=== PATIENT | female | born 1945 | race Caucasian/White ===

== ENCOUNTER 2018-06-06 08:52 | Day surgery (SDC) | payer MEDICARE, MEDICAID ==
[~2018-06-06 08:52] MED LIST: Sodium Chloride 0.9% 10 ML Syringe FLUSH PRN
[2018-06-06] MEDS ORDERED: Propofol 200 MG/20 ML SDV IV ONE (11:20)
[2018-06-06 13:25] VITALS: BP 121/72
--- NOTE | 2018-06-07 10:35 | OR ---
DATE OF OPERATION: 06/06/2018 SURGEON: Arnold Patten MD PREOPERATIVE DIAGNOSIS: Cataract, right eye. POSTOPERATIVE DIAGNOSIS: Cataract, right eye. OPERATION PERFORMED: Phacoemulsification of cataract right eye with placement of an Campbell model ZCB00, 15.0 diopter, foldable, posterior chamber intraocular lens. MECHANICAL ARTIST: None. DESCRIPTION OF PROCEDURE: Peribulbar anesthetic was performed using a mixture of 2% lidocaine with Wydase. The patient was prepped and draped in the usual fashion. A 3 mm fornix based conjunctival flap was performed at the 12 o'clock position. Hemostasis was obtained using diathermy, and a 2.8 mm grooved near clear corneal incision was then made. A stab incision was made into the anterior chamber at the 2:30 o'clock position and a second stab wound incision was made underlying the grooved near clear corneal incision. Viscoat was instilled into the anterior chamber, and a continuous tear capsulotomy was performed. Hydrodissection was accomplished with balanced salt solution, and the nucleus was removed in a divide and conquer fashion. The remaining cortical material was removed with the irrigation and aspiration unit. Viscoat was instilled into the anterior chamber, and an SILVINA, model Z9002, 15.0 diopter, foldable, posterior chamber intraocular lens was placed into the capsular bag, the haptics being positioned at the 3 and 9 o'clock positions. The residual Viscoat was removed from the anterior chamber and the anterior chamber reformed with balanced salt solution. The wound was checked and noted to be watertight. The conjunctiva was secured in its original position with diathermy. Alphagan and Maxitrol Ointment were then placed into the patient's eye. The patient tolerated the procedure well and it was without complication. Elapsed phacoemulsification time was 15.4 seconds. Because of minor patient discomfort, 0.3 mL of a mixture of 1% lidocaine, phenylephrine, and balanced salt solution was instilled into the anterior chamber. This resolved the discomfort. Postoperative instructions as related to activities as well as medications were reviewed with the patient. The patient was instructed to return to see me on the day following surgery for the first postoperative check. She was also instructed to contact me prior to that time if she were to have any problems. /[id number] DEG/MODL CC: JUDY HULL PA-C MTDD
== END 2018-06-06 13:45 | disposition home or self-care (01) ==
LOC: FB.SDS 08:52
PROVIDERS: ATTEND Ophthalmology
DX: H25.813 Combined forms of age-related cataract, bilateral (principal); I10 Essential (primary) hypertension; I26.99 Other pulmonary embolism without acute cor pulmonale; K57.30 Diverticulosis of large intestine without perforation or abscess without bleeding; K21.9 Gastro-esophageal reflux disease without esophagitis; E78.5 Hyperlipidemia, unspecified; D50.9 Iron deficiency anemia, unspecified; M19.90 Unspecified osteoarthritis, unspecified site; G25.81 Restless legs syndrome; F31.9 Bipolar disorder, unspecified; F25.9 Schizoaffective disorder, unspecified; Z79.01 Long term (current) use of anticoagulants; Z79.899 Other long term (current) drug therapy; Z88.2 Allergy status to sulfonamides; Z87.891 Personal history of nicotine dependence
CPT/HCPCS: 00142-QZ; C1780; J2704; J7050

== ENCOUNTER 2018-12-20 16:28 | Emergency (ER) | payer MEDICARE, MEDICAID ==
--- NOTE | 2018-12-20 17:36 | EDM.PDOC ---
ED HPI GENERAL MEDICAL PROBLEM - General Stated Complaint: FALL Time Seen by Provider: 12/20/18 16:37 Source of Information: Reports: Patient, Family (POA) History Limitations: Reports: Physical Impairment - History of Present Illness INITIAL COMMENTS - FREE TEXT/NARRATIVE: 73 y.o.w.f came with family from her her apartment after she fell in the bathroom and hit her head on the bathtub. No LOC. Pt felt a lump at her right pst meme. Pt has a sedentary life style, does not fallon any physical activity. She quit her physical exercise 3 months ago because she did not feel like(?!). She is using a walker to ambulate at her apartment. No N/V/D no other acute medial issue. BP 126/81 RR 18 Pulse ox 96% on RA, Temp 36.6 Pulse 73. Onset Date: 12/20/18 Onset Time: 14:00 Duration: Hour(s):, Intermittent (fell twice) Location: Reports: Head (no LOC) Quality: Reports: Ache, Dull Severity: Mild Improves with: Reports: Rest Worsens with: Reports: Movement Context: Reports: Trauma Associated Symptoms: Reports: Other (sedentary live style) head Pain Score (Numeric/FACES): 9 - Related Data Allergies Allergy/AdvReac Type Severity Reaction Status Date / Time Sulfa (Sulfonamide Allergy Rash Verified 08/23/18 13:28 Antibiotics) Home Meds: Home Meds Benztropine [Cogentin] 1 mg PO BID@,05/09/14 [History] Cholecalciferol (Vitamin D3) [Vitamin D3] 1,000 unit PO QA 05/09/14 [History] Escitalopram [Lexapro] 10 mg PO QA 05/09/14 [History] Omeprazole [Prilosec] 20 mg PO BID@05/09/14 [History] atorvaSTATin Calcium [Atorvastatin Calcium] 20 mg PO DAILY@199905/09/14 [ History] lamoTRIgine [Lamictal] 100 mg PO QA 05/09/14 [History] Acetaminophen 500 mg PO QID PRN 10/29/14 [History] Gabapentin 900 mg PO TID@,,10/29/14 [History] Warfarin [Coumadin] 2.5 mg PO SUTUWETHSA@1500 10/30/14 [History] Warfarin [Coumadin] 5 mg PO MOFR@1500 04/29/15 [History] Diclofenac Sodium [Voltaren] 4 gm TOP BID PRN 06/05/18 [History] Emollient [Vanicream] 1 applic TOP DAILY@59906/05/18 [History] Ferrous Sulfate 325 mg PO BID@,06/05/18 [History] Fluticasone Propionate [Flonase] 2 spray NASBOTH DAILY@59906/05/18 [History] SUMAtriptan Succinate [Imitrex] 50 mg PO ASDIRECTED 06/05/18 [History] rOPINIRole HCl [Requip Xl] 4 mg PO DAILY@199906/05/18 [History] Calcium Carbonate/Vitamin D3 [Calcium 600-Vit D3 800 Tab] 0.5 tab PO BID@08/23/18 [History] Multivitamin [Daily Gilmar] 1 tab PO QAM 08/23/18 [History] Nystatin [Nystatin Crm] 1 applic TOP BID PRN 08/23/18 [History] risperiDONE Microspheres [RisperiDAL Consta] 25 mg IM Q14D 08/23/18 [History] Aspirin [Halfprin] 81 mg PO DAILY #30 tab.ec 08/24/18 [Rx] Magnesium 250 mg PO BID #60 tablet 08/24/18 [Rx] Past Medical History HEENT History: Reports: Allergic Rhinitis, Cataract Cardiovascular History: Reports: Afib, Blood Clots/VTE/DVT, Heart Murmur, High Cholesterol, Hypertension, SOB on Exertion Respiratory History: Reports: PE, Pneumothorax, SOB, Other (See Below) Other Respiratory History: HYPOXIA, uses O2 @ 2L/NC @ hs. Gastrointestinal History: Reports: Colon Polyp, Diverticulosis, GERD Genitourinary History: Reports: None DIGESTER COOK History: Reports: , Other (See Below) Other DIGESTER COOK History: ABNORMAL PAP, Musculoskeletal History: Reports: Arthritis, Back Pain, Chronic, Fracture, Osteoarthritis Other Musculoskeletal History: hx R fx collarbone with surgery Neurological History: Reports: None, Concussion, CVA, Headaches, Chronic, Head Trauma, Migraines Other Neuro History: CVA x 2 Psychiatric History: Reports: Anxiety, Bipolar, Depression, Panic Attack, Schizophrenia, Suicide Attempt, Other (See Below) Other Psychiatric History: PARANOIA Endocrine/Metabolic History: Reports: Obesity/BMI 30+ Hematologic History: Reports: Anemia, Blood Transfusion(s) Immunologic History: Reports: None Oncologic (Cancer) History: Reports: None Dermatologic History: Reports: None - Infectious Disease History Infectious Disease History: Reports: Chicken Pox, Mumps - Past Surgical History HEENT Surgical History: Reports: Adenoidectomy, Cataract Surgery, Tonsillectomy Other HEENT Surgeries/Procedures: bilat cataract Cardiovascular Surgical History: Reports: None Respiratory Surgical History: Reports: None, Other (See Below) Other Respiratory Surgeries/Procedures: lung surgery following suicide attempt in past GI Surgical History: Reports: Cholecystectomy, Colonoscopy, EGD Female Surgical History: Reports: Breast Biopsy Neurological Surgical History: Reports: Other (See Below) Other Neurological Surgeries/Procedures: BACK INJECTIONS Musculoskeletal Surgical History: Reports: Arthroscopic Procedure, Other (See Below) Other Musculoskeletal Surgeries/Procedures:: RCLAVICAL SURGERY, R knee scope Oncologic Surgical History: Reports: None Dermatological Surgical History: Reports: None Social & Family History - Family History Family Medical History: Unobtainable - Caffeine Use Caffeine Use: Reports: Coffee Review of Systems - Review of Systems Review Of Systems: See Below Constitutional: Reports: No Symptoms Eyes: Reports: No Symptoms Ears: Reports: No Symptoms Nose: Reports: No Symptoms Mouth/Throat: Reports: No Symptoms Respiratory: Reports: No Symptoms Cardiovascular: Reports: No Symptoms GI/Abdominal: Reports: No Symptoms Genitourinary: Reports: No Symptoms Musculoskeletal: Reports: No Symptoms Skin: Reports: No Symptoms Neurological: Reports: Headache Psychiatric: Reports: No Symptoms ED EXAM, GENERAL - Physical Exam Exam: See Below Exam Limited By: Physical Impairment General Appearance: Alert, WD/WN, Mild Distress Eye Exam: Bilateral Eye: Normal Inspection Ears: Normal External Exam Ear Exam: Bilateral Ear: Auricle Normal Nose: Normal Inspection, Normal Mucosa, No Blood Throat/Mouth: Normal Inspection, Normal Lips, Normal Voice, No Airway Compromise Head: Normocephalic, Other (mild tender right occiput) Neck: Normal Inspection, Supple, Non-Tender Respiratory/Chest: No Respiratory Distress, Lungs Clear, Normal Breath Sounds ( poor insp), No Accessory Muscle Use Cardiovascular: Normal Peripheral Pulses Peripheral Pulses: 1+: Brachial (R) GI/Abdominal: Normal Bowel Sounds, Soft, Non-Tender, No Organomegaly, No Abnormal Bruit, No Mass, Pelvis Stable (Female) Exam: Deferred Rectal (Female) Exam: Deferred Neurological: Alert, Oriented, CN II-XII Intact, Normal Cognition, Abnormal Gait (duet to body size and sedentary live style. it is her baselien to walk with a walker) Psychiatric: Normal Affect, Normal Mood Skin Exam: Warm, Dry, Intact, Normal Color, No Rash Lymphatic: No Adenopathy Course - Vital Signs Text/Narrative:: 73 y.o.w.f came with family from her her apartment after she fell in the bathroom and hit her head on the bathtub. No LOC. Pt felt a lump at her right pst meme. Pt has a sedentary life style, does not fallon any physical activity. She quit her physical exercise 3 months ago because she did not feel like(?!). She is using a walker to ambulate at her apartment. No N/V/D no other acute medial issue. BP 126/81 RR 18 Pulse ox 96% on RA, Temp 36.6 Pulse 73. PE: Morbid obese 73 y.o.f. S/P fall with a minor SQ hematoma R post meme, pt is on Coumadin due a H/O DVT with a PE Imaging: CT Head/NECK: NAD as per RAD Labs: CBC nl INR 1.24 BMP pos for BUN 24 Cr 1,3 GFR 40 Impression: S/P Fall with minor head injury. Morbid obese Tx: Ice to post meme Reexam: Pt was able to walk with walker Plan: D/C with instructions Last Recorded V/S: Last Vital Signs Temp 36.4 C 12/20/18 18:30 Pulse 68 12/20/18 18:30 Resp 18 12/20/18 18:30 BP 128/67 12/20/18 18:30 Pulse Ox 97 12/20/18 18:30 - Orders/Labs/Meds Orders: Active Orders 24 hr Category Date Time Status Cervical Spine wo Cont [CT] Stat Exams 12/20/18 16:37 Ordered Head wo Cont [CT] Stat Exams 12/20/18 16:37 Ordered Labs: Laboratory Tests 12/20/18 12/20/18 12/20/18 Range/Units 16:53 16:55 16:55 WBC 6.2 (4.5-12.0) X10-3/uL RBC 4.09 (3.23-5.20) x10(6)uL Hgb 12.4 (11.5-15.5) g/dL Hct 37.1 (30.0-51.3) % MCV 90.7 (80-96) fL MCH 30.5 (27.7-33.6) pg MCHC 33.6 (32.2-35.4) g/dL RDW 13.6 (11.5-15.5) % Plt Count 310 (125-369) X10(3)uL MPV 7.9 (7.4-10.4) fL Neut % (Auto) 60.8 (46-82) % Lymph % (Auto) 23.9 (13-37) % Rincon % (Auto) 9.9 (4-12) % Eos % (Auto) 4 (1.0-5.0) % Baso % (Auto) 1 (0-2) % Neut # (Auto) 3.7 (1.6-8.3) # Lymph # (Auto) 1.5 (0.6-5.0) # Rincon # (Auto) 0.6 (0.0-1.3) # Eos # (Auto) 0.3 (0.0-0.8) # Baso # (Auto) 0.1 (0.0-0.2) # PT 23.9 H (8.7-11.1) INR 2.48 H (0.89-1.13) Sodium (135-145) mmol/L Potassium (3.5-5.3) mmol/L Chloride (100-110) mmol/L Carbon Dioxide (21-32) mmol/L BUN (7-18) mg/dL Creatinine (0.55-1.02) mg/dL Est Cr Clr Drug Dosing Estimated GFR (MDRD) (>60) BUN/Creatinine Ratio (9-20) Glucose (80-116) mg/dL Calcium (8.6-10.2) mg/dL Urine Color Yellow (YELLOW) Urine Appearance Slightly cloudy (CLEAR) Urine pH 7.0 H (5.0-6.5) Ur Specific Shirley 1.015 (1.010-1.025) Urine Protein Negative (NEGATIVE) mg/dL Urine Glucose (UA) Normal (NORMAL) mg/dL Urine Ketones Negative (NEGATIVE) mg/dL Urine Occult Blood Negative (NEGATIVE) Urine Nitrite Negative (NEGATIVE) Urine Bilirubin Negative (NEGATIVE) Urine Urobilinogen Normal (NEGATIVE) mg/dL Ur Leukocyte Esterase Negative (NEGATIVE) Urine RBC 0-5 (0-5) Urine WBC 0-5 (0-5) Ur Squamous Epith Cells Few H (NS,R,O) Amorphous Sediment Moderate Urine Bacteria Few H (NS) 12/20/18 Range/Units 16:55 WBC (4.5-12.0) X10-3/uL RBC (3.23-5.20) x10(6)uL Hgb (11.5-15.5) g/dL Hct (30.0-51.3) % MCV (80-96) fL MCH (27.7-33.6) pg MCHC (32.2-35.4) g/dL RDW (11.5-15.5) % Plt Count (125-369) X10(3)uL MPV (7.4-10.4) fL Neut % (Auto) (46-82) % Lymph % (Auto) (13-37) % Rincon % (Auto) (4-12) % Eos % (Auto) (1.0-5.0) % Baso % (Auto) (0-2) % Neut # (Auto) (1.6-8.3) # Lymph # (Auto) (0.6-5.0) # Rincon # (Auto) (0.0-1.3) # Eos # (Auto) (0.0-0.8) # Baso # (Auto) (0.0-0.2) # PT (8.7-11.1) INR (0.89-1.13) Sodium 143 (135-145) mmol/L Potassium 5.0 (3.5-5.3) mmol/L Chloride 107 (100-110) mmol/L Carbon Dioxide 31 (21-32) mmol/L BUN 24 H (7-18) mg/dL Creatinine 1.3 H (0.55-1.02) mg/dL Est Cr Clr Drug Dosing TNP Estimated GFR (MDRD) 40 L (>60) BUN/Creatinine Ratio 18.5 (9-20) Glucose 105 (80-116) mg/dL Calcium 9.4 (8.6-10.2) mg/dL Urine Color (YELLOW) Urine Appearance (CLEAR) Urine pH (5.0-6.5) Ur Specific Shirley (1.010-1.025) Urine Protein (NEGATIVE) mg/dL Urine Glucose (UA) (NORMAL) mg/dL Urine Ketones (NEGATIVE) mg/dL Urine Occult Blood (NEGATIVE) Urine Nitrite (NEGATIVE) Urine Bilirubin (NEGATIVE) Urine Urobilinogen (NEGATIVE) mg/dL Ur Leukocyte Esterase (NEGATIVE) Urine RBC (0-5) Urine WBC (0-5) Ur Squamous Epith Cells (NS,R,O) Amorphous Sediment Urine Bacteria (NS) Departure - Departure Time of Disposition: 18:20 Disposition: Home, Self-Care 01 Condition: Good Clinical Impression: Tension headache, Fall, Sedentary lifestyle - Discharge Information Instructions: Tension Headache, Adult, [id number] Referrals: Nilay Carter MD [Primary Care Provider] - Forms: ED Department Discharge Additional Instructions: Please apply ice to the affected area, please follow up, please cont your current meds, please come back if your symptoms get worse acutely. - My Orders Last 24 Hours: My Active Orders 12/20/18 16:37 Cervical Spine wo Cont [CT] Stat Head wo Cont [CT] Stat - Assessment/Plan Last 24 Hours: My Active Orders 12/20/18 16:37 Cervical Spine wo Cont [CT] Stat Head wo Cont [CT] Stat
[2018-12-20 18:49] VITALS: BP 128/67
--- NOTE | 2018-12-21 09:12 | CT ---
INDICATION: Fell. CT HEAD WITHOUT CONTRAST: Spiral examination of the brain was obtained axially with sagittal and coronal reconstructions, 12/20/18, and compared with . Total exam DLP = 1,219.22 mGy-cm. Visualized paranasal sinuses and mastoid air cells were well-aerated. No cranial abnormality was seen - no cranial fracture site is noted. No shift of midline structures was identified. Ventricles are prominent, similar to previous study, compatible with mild central atrophy. There appear to be a few lacunar infarcts at the basal ganglia on the left, at least one of them most likely present previously. There also may be a lacunar infarct at the right basal ganglia. Calcifications are noted in the internal carotid arteries. There is some minimal patchy decreased density in the white matter, which may be very minimally progressive, compared with the previous study, and likely represents a mild degree of microvascular disease, although other cause of leukoencephalopathy cannot be excluded. No bleeding site or hematoma was identified. IMPRESSION: 1. No definite acute intracranial abnormality. 2. Cerebrovascular disease with internal carotid artery calcifications. 3. Minimal microvascular disease type changes in the white matter - correlate clinically. 4. Mild central atrophy. Report was called to Dr. Forde at 1720 hours on 12/20/18. [facility]
--- NOTE | 2018-12-21 09:20 | CT ---
INDICATION: Fell. CT CERVICAL SPINE: Spiral 2.5 mm axial sections were obtained through the cervical spine with sagittal and coronal reconstructions, 12/20/18 - no comparisons. Total exam DLP = 471.52 mGy-cm. The odontoid and atlas appear to be intact. Reversal of the normal cervical lordosis is noted, centered at the C5 level. Severe decreased disk space is noted at C4-5, C5-6 with mild decrease in disk space at C6-7 and C7-T1. Hypertrophic degenerative changes are noted at C4 through C7. The neural foramina appear to be only slightly impinged upon at the most severe hypertrophic levels of C4-5, C5-6. Prevertebral space and bone density appear to be normal. Mild scarring in the apical lung is noted. IMPRESSION: 1. No acute fracture or dislocation. 2. Degenerative changes and disk disease mid to lower cervical spine. Report was called to Dr. Forde at 1720 hours on 12/20/18. [facility]
== END 2018-12-20 18:40 | disposition home or self-care (01) ==
LOC: FB.ED 16:28
DX: G44.209 Tension-type headache, unspecified, not intractable (principal); F32.9 Major depressive disorder, single episode, unspecified; E66.01 Morbid (severe) obesity due to excess calories; W19.XXXA Unspecified fall, initial encounter; Z88.2 Allergy status to sulfonamides; Z72.89 Other problems related to lifestyle; Z79.01 Long term (current) use of anticoagulants
CPT/HCPCS: 36415; 70450; 72125; 80048; 81001; 85025; 85610; 99284-25

== ENCOUNTER 2018-12-27 13:39 | Inpatient (IN) | payer MEDICARE, MEDICAID ==
[2018-12-27] MEDS ORDERED: Sodium Chloride 0.9% 10 ML Syringe FLUSH PRN (14:06)
--- NOTE | 2018-12-27 14:16 | EDM.PDOC ---
ED HPI GENERAL MEDICAL PROBLEM - General Chief Complaint: General Stated Complaint: DIZZINESS FALLING Time Seen by Provider: 12/27/18 13:45 Source of Information: Reports: Patient History Limitations: Reports: No Limitations - History of Present Illness INITIAL COMMENTS - FREE TEXT/NARRATIVE: 73-year-old female with 2 week history of progressive weakness and multiple falls. She has a history of chronic headaches and 2 weeks ago was placed on Topamax. Her headaches are somewhat improved but still present. She reports progressive increase in weakness in her legs and dizziness and has had multiple falls with the last fall being on 12/24/2018 where she hit her head and her back in (rather hard she states). She had no loss of consciousness associated with this. There was no syncopal episode associated with this. She states she was just weak in her legs and they would not support her. Today she was unable to stand with assistance and it took 2 people with maximal effort to transfer. She apparently called her clinic and they recommended that she come to the emergency department via ambulance for evaluation. She has had no nausea or vomiting. He's been no fevers or chills. She's had no shortness of breath. She reports a headache which she rates as 7/10. She also reports lumbar back pain which she rates as an 8/10. These pains are aching and throbbing and worse with movement and palpation. She also reports chest pain which she reports is a heaviness or a ball in the center of her chest without radiation. She rates his pain as about a 4/10 and it just began while she was here in the emergency department. It is not made worse with breathing, palpation or movement. She reports that it is mild. She does report that she has been eating and drinking normally. There are no other associated signs or symptoms. There are no other modifying factors. Onset: Gradual, Other (As above) Duration: Getting Worse Location: Reports: Head, Neck, Chest, Back Quality: Reports: Ache, Pressure, Sharp, Throbbing Severity: Moderate (As above in history of present illness.) Improves with: Reports: Rest Worsens with: Reports: Movement Context: Reports: Activity Associated Symptoms: Reports: Chest Pain, Headaches, Weakness Treatments VOCAL MUSIC INSTRUCTOR: Reports: Other (see below) Other Treatments VOCAL MUSIC INSTRUCTOR: None - Related Data Allergies Allergy/AdvReac Type Severity Reaction Status Date / Time Sulfa (Sulfonamide Allergy Rash Verified 12/27/18 15:01 Antibiotics) Home Meds: Home Meds Benztropine [Cogentin] 1 mg PO BID@,05/09/14 [History] Cholecalciferol (Vitamin D3) [Vitamin D3] 1,000 unit PO QAM 05/09/14 [History] Escitalopram [Lexapro] 10 mg PO QAM 05/09/14 [History] Omeprazole [Prilosec] 20 mg PO BID@05/09/14 [History] atorvaSTATin Calcium [Atorvastatin Calcium] 20 mg PO DAILY@199905/09/14 [ History] lamoTRIgine [Lamictal] 100 mg PO QAM 05/09/14 [History] Acetaminophen 500 mg PO QID PRN 10/29/14 [History] Gabapentin 900 mg PO TID@,10/29/14 [History] Warfarin [Coumadin] 2.5 mg PO SUTUWETHFRSA@149910/30/14 [History] Warfarin [Coumadin] 5 mg PO MO 04/29/15 [History] Diclofenac Sodium [Voltaren] 4 gm TOP BID PRN 06/05/18 [History] Emollient [Vanicream] 1 applic TOP DAILY@06 PRN 06/05/18 [History] Ferrous Sulfate 325 mg PO 06/05/18 [History] Fluticasone Propionate [Flonase] 2 spray NASBOTH DAILY@0606/05/18 [History] SUMAtriptan Succinate [Imitrex] 50 mg PO ASDIRECTED 06/05/18 [History] rOPINIRole HCl [Requip Xl] 4 mg PO DAILY@199906/05/18 [History] Calcium Carbonate/Vitamin D3 [Calcium 600-Vit D3 800 Tab] 0.5 tab PO BID@08/23/18 [History] Multivitamin [Daily [place]] 1 tab PO QAM 08/23/18 [History] risperiDONE Microspheres [RisperiDAL Consta] 25 mg IM Q14D 08/23/18 [History] Aspirin [Halfprin] 81 mg PO DAILY #30 tab.ec 08/24/18 [Rx] Magnesium 250 mg PO BID #60 tablet 08/24/18 [Rx] Sennosides/Docusate Sodium [Senokot-S Tablet] 1 - 2 tab PO DAILY 12/27/18 [ History] Topiramate [Topamax] 25 mg PO BID 12/27/18 [History] rOPINIRole HCl [Requip] 4 mg PO DAILY 12/27/18 [History] Past Medical History HEENT History: Reports: Cataract Cardiovascular History: Reports: Afib, Blood Clots/VTE/DVT, Heart Murmur, High Cholesterol, Hypertension, SOB on Exertion Respiratory History: Reports: PE, Pneumothorax, SOB, Other (See Below) Other Respiratory History: HYPOXIA, uses O2 @ 2L/NC @ hs. Gastrointestinal History: Reports: Colon Polyp, Diverticulosis, GERD OPERATIONAL TRAINER History: Reports: Other (See Below) Other OPERATIONAL TRAINER History: ABNORMAL PAP, Musculoskeletal History: Reports: Arthritis, Back Pain, Chronic, Fracture, Osteoarthritis Other Musculoskeletal History: hx R fx collarbone with surgery Neurological History: Reports: None, Concussion, CVA, Headaches, Chronic, Head Trauma, Migraines Other Neuro History: CVA x 2 Psychiatric History: Reports: Anxiety, Bipolar, Depression, Panic Attack, Schizophrenia, Suicide Attempt, Other (See Below) Other Psychiatric History: PARANOIA Endocrine/Metabolic History: Reports: Obesity/BMI 30+ Hematologic History: Reports: Anemia, Anticoagulation Therapy (On Coumadin), Blood Transfusion(s) - Infectious Disease History Infectious Disease History: Reports: Chicken Pox, Mumps - Past Surgical History HEENT Surgical History: Reports: Adenoidectomy, Cataract Surgery, Tonsillectomy Other HEENT Surgeries/Procedures: bilat cataract Cardiovascular Surgical History: Reports: None Respiratory Surgical History: Reports: None, Other (See Below) Other Respiratory Surgeries/Procedures: lung surgery following suicide attempt in past GI Surgical History: Reports: Cholecystectomy, Colonoscopy, EGD Female Surgical History: Reports: Breast Biopsy Neurological Surgical History: Reports: Other (See Below) Other Neurological Surgeries/Procedures: BACK INJECTIONS Musculoskeletal Surgical History: Reports: Arthroscopic Procedure, Other (See Below) Other Musculoskeletal Surgeries/Procedures:: RCLAVICAL SURGERY, R knee scope Oncologic Surgical History: Reports: None Dermatological Surgical History: Reports: None Social & Family History - Tobacco Use Smoking Status *Q: Former Smoker (Nonsmoker for the past 3 years.) - Caffeine Use Caffeine Use: Reports: Coffee - Alcohol Use Alcohol Use History: No Alcohol Use in Last Twelve Months: No Alcohol Use Comment: Denies alcohol use. - Living Situation & Occupation Occupation: Retired Social History Comment: Lives alone in her own home. ED ROS GENERAL - Review of Systems Review Of Systems: See Below Constitutional: Reports: Weakness HEENT: Reports: No Symptoms Respiratory: Reports: No Symptoms Cardiovascular: Reports: Chest Pain, Lightheadedness Endocrine: Reports: No Symptoms GI/Abdominal: Reports: No Symptoms : Reports: No Symptoms Musculoskeletal: Reports: Neck Pain, Back Pain Skin: Reports: No Symptoms Neurological: Reports: Dizziness, Weakness (All over) Psychiatric: Reports: No Symptoms Hematologic/Lymphatic: Reports: Easy Bleeding, Easy Bruising Immunologic: Reports: No Symptoms ED EXAM, GENERAL - Physical Exam Exam: See Below Exam Limited By: No Limitations General Appearance: Alert, WD/WN, No Apparent Distress Eye Exam: Bilateral Eye: EOMI, Normal Inspection, PERRL Ears: Normal External Exam, Hearing Grossly Normal Nose: Normal Inspection, Normal Mucosa, No Blood Throat/Mouth: Normal Voice, No Airway Compromise, Other (Dry mouth) Head: Normocephalic, Other (Tenderness over the occiput with no crepitus or depression.) Neck: Normal Inspection, Tender Midline (Diffusely) Respiratory/Chest: No Respiratory Distress, Lungs Clear, Normal Breath Sounds, No Accessory Muscle Use, Chest Non-Tender Cardiovascular: Normal Peripheral Pulses, Regular Rate, Rhythm, No JVD Peripheral Pulses: 2+: Radial (L), Radial (R), Dorsalis Pedis (L), Dorsalis Pedis (R) GI/Abdominal: Normal Bowel Sounds, Soft, Non-Tender, No Organomegaly, No Mass Back Exam: Normal Inspection, Vertebral Tenderness (Diffuse) Extremities: Normal Inspection, Normal Range of Motion, Non-Tender, Normal Capillary Refill Neurological: Alert, Oriented, CN II-XII Intact, Normal Cognition, No Motor/ Sensory Deficits Psychiatric: Normal Affect, Normal Mood Skin Exam: Warm, Dry, Intact, Normal Color, No Rash Lymphatic: No Adenopathy EKG INTERPRETATION EKG Date: 12/27/18 Time: 14:22 Rhythm: NSR [place]: Normal P-Wave: Present QRS: Normal ST-T: Other (T-wave inversion in V2 and V3) QT: Normal Comparison: Change From Previous EKG (T-wave inversion in V2 and V3 is new from 05/23/2014.) Course - Orders/Labs/Meds Orders: Active Orders 24 hr Category Date Time Status EKG Documentation Completion [RC] ASDIRECTED Care 12/27/18 14:08 Active Cervical Spine wo Cont [CT] Stat Exams 12/27/18 14:06 Taken Chest 2V [CR] Stat Exams 12/27/18 15:28 Taken Head wo Cont [CT] Stat Exams 12/27/18 14:06 Taken Lumbar Spine 2 or 3V [CR] Stat Exams 12/27/18 14:06 Taken Sodium Chloride 0.9% [Saline Flush] Med 12/27/18 14:06 Active 10 ml FLUSH ASDIRECTED PRN Peripheral IV Insertion Adult [OM.PC] Routine Oth 12/27/18 14:06 Ordered EKG 12 Lead [EK] Routine Ther 12/27/18 14:06 Ordered Medication Orders Sodium Chloride (Saline Flush) 10 ml FLUSH ASDIRECTED PRN PRN Reason: Keep Vein Open Labs: Laboratory Tests 12/27/18 12/27/18 12/27/18 Range/Units 14:30 14:30 14:30 WBC 8.4 (4.5-12.0) X10-3/uL RBC 3.95 (3.23-5.20) x10(6)uL Hgb 12.3 (11.5-15.5) g/dL Hct 35.6 (30.0-51.3) % MCV 90.1 (80-96) fL MCH 31.1 (27.7-33.6) pg MCHC 34.5 (32.2-35.4) g/dL RDW 13.6 (11.5-15.5) % Plt Count 298 (125-369) X10(3)uL MPV 8.1 (7.4-10.4) fL Neut % (Auto) 73.7 (46-82) % Lymph % (Auto) 16.5 (13-37) % [place] % (Auto) 6.7 (4-12) % Eos % (Auto) 2 (1.0-5.0) % Baso % (Auto) 1 (0-2) % Neut # (Auto) 6.1 (1.6-8.3) # Lymph # (Auto) 1.4 (0.6-5.0) # [place] # (Auto) 0.6 (0.0-1.3) # Eos # (Auto) 0.2 (0.0-0.8) # Baso # (Auto) 0.1 (0.0-0.2) # PT (8.7-11.1) INR (0.89-1.13) APTT (24.4-33.2) SECONDS Sodium 142 (135-145) mmol/L Potassium 4.4 (3.5-5.3) mmol/L Chloride 106 (100-110) mmol/L Carbon Dioxide 32 (21-32) mmol/L BUN 19 H (7-18) mg/dL Creatinine 1.1 H (0.55-1.02) mg/dL Est Cr Clr Drug Dosing TNP Estimated GFR (MDRD) 49 L (>60) BUN/Creatinine Ratio 17.3 (9-20) Glucose 133 H (80-116) mg/dL Calcium 8.8 (8.6-10.2) mg/dL Magnesium 1.8 (1.8-2.5) mg/dL Total Bilirubin 0.3 (0.1-1.3) mg/dL AST 17 (5-25) IU/L ALT 32 (12-36) U/L Alkaline Phosphatase 125 H (56-112) IU/L Creatine Kinase (60-160) IU/L Troponin I < 0.017 L (<0.017-0.056) ng/mL C-Reactive Protein 1.0 H (0.5-0.9) mg/dL Total Protein 6.4 (6.0-8.0) g/dL Albumin 3.1 L (3.2-4.6) g/dL Globulin 3.3 g/dL Albumin/Globulin Ratio 0.9 Urine Color (YELLOW) Urine Appearance (CLEAR) Urine pH (5.0-6.5) Ur Specific [place] (1.010-1.025) Urine Protein (NEGATIVE) mg/dL Urine Glucose (UA) (NORMAL) mg/dL Urine Ketones (NEGATIVE) mg/dL Urine Occult Blood (NEGATIVE) Urine Nitrite (NEGATIVE) Urine Bilirubin (NEGATIVE) Urine Urobilinogen (NEGATIVE) mg/dL Ur Leukocyte Esterase (NEGATIVE) Urine RBC (0-5) Urine WBC (0-5) Ur Squamous Epith Cells (NS,R,O) Amorphous Sediment Urine Bacteria (NS) Urine Mucus (NS) 12/27/18 12/27/18 12/27/18 Range/Units 14:30 14:30 14:30 WBC (4.5-12.0) X10-3/uL RBC (3.23-5.20) x10(6)uL Hgb (11.5-15.5) g/dL Hct (30.0-51.3) % MCV (80-96) fL MCH (27.7-33.6) pg MCHC (32.2-35.4) g/dL RDW (11.5-15.5) % Plt Count (125-369) X10(3)uL MPV (7.4-10.4) fL Neut % (Auto) (46-82) % Lymph % (Auto) (13-37) % [place] % (Auto) (4-12) % Eos % (Auto) (1.0-5.0) % Baso % (Auto) (0-2) % Neut # (Auto) (1.6-8.3) # Lymph # (Auto) (0.6-5.0) # [place] # (Auto) (0.0-1.3) # Eos # (Auto) (0.0-0.8) # Baso # (Auto) (0.0-0.2) # PT 12.4 H (8.7-11.1) INR 1.28 H (0.89-1.13) APTT 23.5 L (24.4-33.2) SECONDS Sodium (135-145) mmol/L Potassium (3.5-5.3) mmol/L Chloride (100-110) mmol/L Carbon Dioxide (21-32) mmol/L BUN (7-18) mg/dL Creatinine (0.55-1.02) mg/dL Est Cr Clr Drug Dosing Estimated GFR (MDRD) (>60) BUN/Creatinine Ratio (9-20) Glucose (80-116) mg/dL Calcium (8.6-10.2) mg/dL Magnesium (1.8-2.5) mg/dL Total Bilirubin (0.1-1.3) mg/dL AST (5-25) IU/L ALT (12-36) U/L Alkaline Phosphatase (56-112) IU/L Creatine Kinase 81 (60-160) IU/L Troponin I (<0.017-0.056) ng/mL C-Reactive Protein (0.5-0.9) mg/dL Total Protein (6.0-8.0) g/dL Albumin (3.2-4.6) g/dL Globulin g/dL Albumin/Globulin Ratio Urine Color (YELLOW) Urine Appearance (CLEAR) Urine pH (5.0-6.5) Ur Specific [place] (1.010-1.025) Urine Protein (NEGATIVE) mg/dL Urine Glucose (UA) (NORMAL) mg/dL Urine Ketones (NEGATIVE) mg/dL Urine Occult Blood (NEGATIVE) Urine Nitrite (NEGATIVE) Urine Bilirubin (NEGATIVE) Urine Urobilinogen (NEGATIVE) mg/dL Ur Leukocyte Esterase (NEGATIVE) Urine RBC (0-5) Urine WBC (0-5) Ur Squamous Epith Cells (NS,R,O) Amorphous Sediment Urine Bacteria (NS) Urine Mucus (NS) 12/27/18 Range/Units 15:18 WBC (4.5-12.0) X10-3/uL RBC (3.23-5.20) x10(6)uL Hgb (11.5-15.5) g/dL Hct (30.0-51.3) % MCV (80-96) fL MCH (27.7-33.6) pg MCHC (32.2-35.4) g/dL RDW (11.5-15.5) % Plt Count (125-369) X10(3)uL MPV (7.4-10.4) fL Neut % (Auto) (46-82) % Lymph % (Auto) (13-37) % [place] % (Auto) (4-12) % Eos % (Auto) (1.0-5.0) % Baso % (Auto) (0-2) % Neut # (Auto) (1.6-8.3) # Lymph # (Auto) (0.6-5.0) # [place] # (Auto) (0.0-1.3) # Eos # (Auto) (0.0-0.8) # Baso # (Auto) (0.0-0.2) # PT (8.7-11.1) INR (0.89-1.13) APTT (24.4-33.2) SECONDS Sodium (135-145) mmol/L Potassium (3.5-5.3) mmol/L Chloride (100-110) mmol/L Carbon Dioxide (21-32) mmol/L BUN (7-18) mg/dL Creatinine (0.55-1.02) mg/dL Est Cr Clr Drug Dosing Estimated GFR (MDRD) (>60) BUN/Creatinine Ratio (9-20) Glucose (80-116) mg/dL Calcium (8.6-10.2) mg/dL Magnesium (1.8-2.5) mg/dL Total Bilirubin (0.1-1.3) mg/dL AST (5-25) IU/L ALT (12-36) U/L Alkaline Phosphatase (56-112) IU/L Creatine Kinase (60-160) IU/L Troponin I (<0.017-0.056) ng/mL C-Reactive Protein (0.5-0.9) mg/dL Total Protein (6.0-8.0) g/dL Albumin (3.2-4.6) g/dL Globulin g/dL Albumin/Globulin Ratio Urine Color Yellow (YELLOW) Urine Appearance Cloudy (CLEAR) Urine pH 7.0 H (5.0-6.5) Ur Specific [place] 1.015 (1.010-1.025) Urine Protein Negative (NEGATIVE) mg/dL Urine Glucose (UA) Normal (NORMAL) mg/dL Urine Ketones Negative (NEGATIVE) mg/dL Urine Occult Blood Negative (NEGATIVE) Urine Nitrite Negative (NEGATIVE) Urine Bilirubin Negative (NEGATIVE) Urine Urobilinogen Normal (NEGATIVE) mg/dL Ur Leukocyte Esterase Moderate H (NEGATIVE) Urine RBC 0-5 (0-5) Urine WBC 5-10 H (0-5) Ur Squamous Epith Cells Few H (NS,R,O) Amorphous Sediment Moderate Urine Bacteria Few H (NS) Urine Mucus Few H (NS) Meds: Medications Generic Name Dose Route Start Last Admin Trade Name Freq PRN Reason Stop Dose Admin Sodium Chloride 10 ml 12/27/18 14:06 Saline Flush FLUSH ASDIRECTED PRN Keep Vein Open Discontinued Medications Generic Name Dose Route Start Last Admin Trade Name Freq PRN Reason Stop Dose Admin Sodium Chloride 500 mls @ 999 mls/hr 12/27/18 15:19 Normal Saline IV 12/27/18 15:49 .BOLUS ONE - Radiology Interpretation Free Text/Narrative:: CT scan of the patient's head and cervical spine showed no acute abnormality per the radiologist. Portal chest x-ray showed no acute abnormality Lumbar spine x-rays showed degenerative changes but no acute fracture or malalignment per the radiologist. - Re-Assessments/Exams Free Text/Narrative Re-Assessment/Exam: 12/27/18 16:16: Patient's lab tests are reassuring. She does appear to be somewhat dehydrated and I am giving her some IV fluids. The CT scan of her head and cervical spine were negative for any acute problem. The x-rays of her chest and lumbar spine showed no acute abnormality. There is no evidence of infection in her urine. Her initial troponin was negative. Her EKG did show some changes from 2013 but she apparently has had a fairly extensive workup through her primary provider in regard to chest pain. She has, however, had multiple falls and this has been progressively worsening to the point that she cannot ambulate and is requiring maximal assistance for transfers. Because of this, the patient cannot be safely discharged. She is at significant risk for further falls with injury with significant increased risk for morbidity and even mortality. Therefore, she will need admission to the hospital. I have discussed the patient 's case with Dr. Garcia and he has agreed to admit the patient. I discussed admission with the patient and she is in agreement with the plans for admission. I will place interim admission orders. Departure - Departure Time of Disposition: 16:20 Disposition: Admitted As Inpatient 68 Condition: Fair Clinical Impression: History of progressive weakness, Unable to ambulate Chest pain Qualifiers: Chest pain type: unspecified Qualified Code(s): R07.9 - Chest pain, unspecified - Discharge Information Forms: ED Department Discharge - My Orders Last 24 Hours: My Active Orders 12/27/18 14:06 Cervical Spine wo Cont [CT] Stat Head wo Cont [CT] Stat Lumbar Spine 2 or 3V [CR] Stat Sodium Chloride 0.9% [Saline Flush] 10 ml FLUSH ASDIRECTED PRN Peripheral IV Insertion Adult [OM.PC] Routine EKG 12 Lead [EK] Routine 12/27/18 14:08 EKG Documentation Completion [RC] ASDIRECTED 12/27/18 15:28 Chest 2V [CR] Stat - Assessment/Plan Last 24 Hours: My Active Orders 12/27/18 14:06 Cervical Spine wo Cont [CT] Stat Head wo Cont [CT] Stat Lumbar Spine 2 or 3V [CR] Stat Sodium Chloride 0.9% [Saline Flush] 10 ml FLUSH ASDIRECTED PRN Peripheral IV Insertion Adult [OM.PC] Routine EKG 12 Lead [EK] Routine 12/27/18 14:08 EKG Documentation Completion [RC] ASDIRECTED 12/27/18 15:28 Chest 2V [CR] Stat
[2018-12-27] MEDS ORDERED: Sodium Chloride 0.9% 500 ML IV ONE (15:19)
[2018-12-27] MEDS ORDERED: Acetaminophen 500 MG Tab PO ONE (16:29)
--- NOTE | 2018-12-27 17:56 | PCM.LDHP ---
<Paul Andre - Last Filed: 12/27/18 17:48> L&D History of Present Illness - General Date of Service: 12/27/18 Admit Problem/Dx: Patient Status Order with Admit Dx/Problem 12/27/18 16:26 Admission Status [Patient Status] [ADT] Routine Admission Diagnosis/Problem Admission Diagnosis/Problem Chest pain Source of Information: Patient - History of Present Illness Introduction:: Deysi White is a 73-year-old female with 2 week history of progressive weakness and multiple falls. She has a history of chronic headaches, she was taking daily imitrex. Patient was seen by neurologist at [facility] 2 weeks ago was placed on Topamax. Her headaches are somewhat improved but still present. She reports progressive increase in weakness in her legs and dizziness, memory impairment and has had multiple falls with the last fall being on 12/24/2018 where she hit her head and her back in (rather hard she states). She had no loss of consciousness associated with this. There was no syncopal episode associated with this. She states she was just weak in her legs and they would not support her. Today she was unable to stand with assistance and it took 2 people with maximal effort to transfer. She apparently called her clinic and they recommended that she come to the emergency department via ambulance for evaluation. Patient had head CT scan which was negative for acute changes. Patient was started on IV fluid. She has had no nausea or vomiting. He's been no fevers or chills. She's had no shortness of breath. She reports a headache which she rates as 7/10. She also reports lumbar back pain which she rates as an 8/10. These pains are aching and throbbing and worse with movement and palpation. She also reports chest pain which she reports is a heaviness or a ball in the center of her chest without radiation, which been going on and off for almost a year. 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 Recent nuclear studies showed LVEF: 67 %. EDV: 56 ml. ESV: 18 ml. SV: 37 ml. TID: 0.85, indicating normal value for Lexiscan pharmacologic stress imaging study. No significant stress induced perfusion defect. No significant fixed perfusion defect. Wall motion is appropriate. Inferior wall artifact. Patient was schedule to proceed with cardiac cath which is schedule tomorrow. Patient denies any recent illness. she quite smoking 3 years ago. no alcohol drinks. Quality: Reports: Same as Previous Episode - Related Data Allergies/Adverse Reactions: Allergies Allergy/AdvReac Type Severity Reaction Status Date / Time Sulfa (Sulfonamide Allergy Rash Verified 12/27/18 15:01 Antibiotics) Home Medications: Home Meds Benztropine [Cogentin] 1 mg PO BID@,15 05/09/14 [History] Cholecalciferol (Vitamin D3) [Vitamin D3] 1,000 unit PO QAM 05/09/14 [History] Escitalopram [Lexapro] 10 mg PO QAM 05/09/14 [History] Omeprazole [Prilosec] 20 mg PO BID@,05/09/14 [History] atorvaSTATin Calcium [Atorvastatin Calcium] 20 mg PO DAILY@199905/09/14 [ History] lamoTRIgine [Lamictal] 100 mg PO QAM 05/09/14 [History] Acetaminophen 500 mg PO QID PRN 10/29/14 [History] Gabapentin 900 mg PO TID@,10/29/14 [History] Warfarin [Coumadin] 2.5 mg PO SUTUWETHSA@1500 10/30/14 [History] Warfarin [Coumadin] 5 mg PO MOFR@1500 04/29/15 [History] Diclofenac Sodium [Voltaren] 4 gm TOP BID PRN 06/05/18 [History] Emollient [Vanicream] 1 applic TOP DAILY@0600 PRN 06/05/18 [History] Ferrous Sulfate 325 mg PO 06 06/05/18 [History] Fluticasone Propionate [Flonase] 2 spray NASBOTH DAILY@0606/05/18 [History] SUMAtriptan Succinate [Imitrex] 50 mg PO ASDIRECTED 06/05/18 [History] rOPINIRole HCl [Requip Xl] 4 mg PO DAILY@199906/05/18 [History] Multivitamin [Daily [place]] 1 tab PO QAM 08/23/18 [History] risperiDONE Microspheres [RisperiDAL Consta] 25 mg IM Q14D 08/23/18 [History] Aspirin [Halfprin] 81 mg PO DAILY #30 tab.ec 08/24/18 [Rx] Magnesium 250 mg PO BID #60 tablet 08/24/18 [Rx] Sennosides/Docusate Sodium [Senokot-S Tablet] 1 - 2 tab PO DAILY 12/27/18 [ History] Topiramate [Topamax] 25 mg PO BID 12/27/18 [History] Calcium Citrate 300mg 150 mg PO BID@06,20 12/28/18 [History] Past Medical History HEENT History: Reports: Cataract Cardiovascular History: Reports: Afib, Blood Clots/VTE/DVT, Heart Murmur, High Cholesterol, Hypertension, SOB on Exertion Respiratory History: Reports: PE, Pneumothorax, SOB, Other (See Below) Other Respiratory History: HYPOXIA, uses O2 @ 2L/NC @ hs. 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: Reports: Other (See Below) Other OB/BYN History: ABNORMAL PAP, Musculoskeletal History: Reports: Arthritis, Back Pain, Chronic, Fracture, Osteoarthritis Other Musculoskeletal History: hx R fx collarbone with surgery Neurological History: Reports: None, Concussion, CVA, Headaches, Chronic, Head Trauma, Migraines Other Neuro History: CVA x 2 Psychiatric History: Reports: Anxiety, Bipolar, Depression, Panic Attack, Schizophrenia, Suicide Attempt, Other (See Below) Other Psychiatric History: PARANOIA Endocrine/Metabolic History: Reports: Obesity/BMI 30+ Hematologic History: Reports: Anemia, Anticoagulation Therapy (On Coumadin), Blood Transfusion(s) Immunologic History: Reports: None Oncologic (Cancer) History: Reports: None Dermatologic History: Reports: None - Infectious Disease History Infectious Disease History: Reports: Chicken Pox, Mumps - Past Surgical History HEENT Surgical History: Reports: Adenoidectomy, Cataract Surgery, Tonsillectomy Other HEENT Surgeries/Procedures: bilat cataract Cardiovascular Surgical History: Reports: None Respiratory Surgical History: Reports: None, Other (See Below) Other Respiratory Surgeries/Procedures: lung surgery following suicide attempt in past GI Surgical History: Reports: Cholecystectomy, Colonoscopy, EGD Female Surgical History: Reports: Breast Biopsy Neurological Surgical History: Reports: Other (See Below) Other Neurological Surgeries/Procedures: BACK INJECTIONS Musculoskeletal Surgical History: Reports: Arthroscopic Procedure, Other (See Below) Other Musculoskeletal Surgeries/Procedures:: RCLAVICAL SURGERY, R knee scope Oncologic Surgical History: Reports: None Dermatological Surgical History: Reports: None Social & Family History - Family History Family Medical History: Unobtainable - Tobacco Use Smoking Status *Q: Former Smoker (Nonsmoker for the past 3 years.) - Caffeine Use Caffeine Use: Reports: Coffee - Living Situation & Occupation Occupation: Retired H&P Review of Systems - Review of Systems: Review Of Systems: See Below General: Reports: Weakness, Fatigue HEENT: Reports: Headaches Pulmonary: Reports: Pleuritic Chest Pain Cardiovascular: Reports: Lightheadedness Gastrointestinal: Reports: No Symptoms Genitourinary: Reports: No Symptoms Musculoskeletal: Reports: Back Pain, Leg Pain Skin: Reports: No Symptoms Psychiatric: Reports: Confusion Neurological: Reports: Headache, Paresthesia, Difficulty Walking, Weakness, Gait Disturbance Immunologic: Reports: No Symptoms L&D Exam - Exam Exam: See Below - Exam General: Alert, Oriented, Cooperative HEENT: PERRLA, Conjunctiva Clear Neck: Supple, Trachea Midline, Full Range of Motion Lungs: Clear to Auscultation, Normal Respiratory Effort Cardiovascular: Regular Rate, Regular Rhythm GI/Abdominal Exam: Normal Bowel Sounds, Soft, Non-Tender Rectal Exam: Deferred Genitourinary: Deferred Back Exam: Normal Inspection, Full Range of Motion, Decreased Range of Motion Extremities: Normal Inspection, Normal Range of Motion, Non-Tender, No Pedal Edema Skin: Warm Neurological: Cranial Nerves Intact, Strength Equal Bilateral, Normal Speech Psychiatric: Alert, Normal Affect, Normal Mood - Patient Data Lab Results Last 24 hrs: Laboratory Results - last 24 hr 12/27/18 12/27/18 12/27/18 Range/Units 14:30 14:30 14:30 WBC 8.4 (4.5-12.0) X10-3/uL RBC 3.95 (3.23-5.20) x10(6)uL Hgb 12.3 (11.5-15.5) g/dL Hct 35.6 (30.0-51.3) % MCV 90.1 (80-96) fL MCH 31.1 (27.7-33.6) pg MCHC 34.5 (32.2-35.4) g/dL RDW 13.6 (11.5-15.5) % Plt Count 298 (125-369) X10(3)uL MPV 8.1 (7.4-10.4) fL Neut % (Auto) 73.7 (46-82) % Lymph % (Auto) 16.5 (13-37) % [place] % (Auto) 6.7 (4-12) % Eos % (Auto) 2 (1.0-5.0) % Baso % (Auto) 1 (0-2) % Neut # (Auto) 6.1 (1.6-8.3) # Lymph # (Auto) 1.4 (0.6-5.0) # [place] # (Auto) 0.6 (0.0-1.3) # Eos # (Auto) 0.2 (0.0-0.8) # Baso # (Auto) 0.1 (0.0-0.2) # PT (8.7-11.1) INR (0.89-1.13) APTT (24.4-33.2) SECONDS Sodium 142 (135-145) mmol/L Potassium 4.4 (3.5-5.3) mmol/L Chloride 106 (100-110) mmol/L Carbon Dioxide 32 (21-32) mmol/L BUN 19 H (7-18) mg/dL Creatinine 1.1 H (0.55-1.02) mg/dL Est Cr Clr Drug Dosing TNP Estimated GFR (MDRD) 49 L (>60) BUN/Creatinine Ratio 17.3 (9-20) Glucose 133 H (80-116) mg/dL Calcium 8.8 (8.6-10.2) mg/dL Magnesium 1.8 (1.8-2.5) mg/dL Total Bilirubin 0.3 (0.1-1.3) mg/dL AST 17 (5-25) IU/L ALT 32 (12-36) U/L Alkaline Phosphatase 125 H (56-112) IU/L Creatine Kinase (60-160) IU/L Troponin I < 0.017 L (<0.017-0.056) ng/mL C-Reactive Protein 1.0 H (0.5-0.9) mg/dL Total Protein 6.4 (6.0-8.0) g/dL Albumin 3.1 L (3.2-4.6) g/dL Globulin 3.3 g/dL Albumin/Globulin Ratio 0.9 Urine Color (YELLOW) Urine Appearance (CLEAR) Urine pH (5.0-6.5) Ur Specific [place] (1.010-1.025) Urine Protein (NEGATIVE) mg/dL Urine Glucose (UA) (NORMAL) mg/dL Urine Ketones (NEGATIVE) mg/dL Urine Occult Blood (NEGATIVE) Urine Nitrite (NEGATIVE) Urine Bilirubin (NEGATIVE) Urine Urobilinogen (NEGATIVE) mg/dL Ur Leukocyte Esterase (NEGATIVE) Urine RBC (0-5) Urine WBC (0-5) Ur Squamous Epith Cells (NS,R,O) Amorphous Sediment Urine Bacteria (NS) Urine Mucus (NS) 12/27/18 12/27/18 12/27/18 Range/Units 14:30 14:30 14:30 WBC (4.5-12.0) X10-3/uL RBC (3.23-5.20) x10(6)uL Hgb (11.5-15.5) g/dL Hct (30.0-51.3) % MCV (80-96) fL MCH (27.7-33.6) pg MCHC (32.2-35.4) g/dL RDW (11.5-15.5) % Plt Count (125-369) X10(3)uL MPV (7.4-10.4) fL Neut % (Auto) (46-82) % Lymph % (Auto) (13-37) % [place] % (Auto) (4-12) % Eos % (Auto) (1.0-5.0) % Baso % (Auto) (0-2) % Neut # (Auto) (1.6-8.3) # Lymph # (Auto) (0.6-5.0) # [place] # (Auto) (0.0-1.3) # Eos # (Auto) (0.0-0.8) # Baso # (Auto) (0.0-0.2) # PT 12.4 H (8.7-11.1) INR 1.28 H (0.89-1.13) APTT 23.5 L (24.4-33.2) SECONDS Sodium (135-145) mmol/L Potassium (3.5-5.3) mmol/L Chloride (100-110) mmol/L Carbon Dioxide (21-32) mmol/L BUN (7-18) mg/dL Creatinine (0.55-1.02) mg/dL Est Cr Clr Drug Dosing Estimated GFR (MDRD) (>60) BUN/Creatinine Ratio (9-20) Glucose (80-116) mg/dL Calcium (8.6-10.2) mg/dL Magnesium (1.8-2.5) mg/dL Total Bilirubin (0.1-1.3) mg/dL AST (5-25) IU/L ALT (12-36) U/L Alkaline Phosphatase (56-112) IU/L Creatine Kinase 81 (60-160) IU/L Troponin I (<0.017-0.056) ng/mL C-Reactive Protein (0.5-0.9) mg/dL Total Protein (6.0-8.0) g/dL Albumin (3.2-4.6) g/dL Globulin g/dL Albumin/Globulin Ratio Urine Color (YELLOW) Urine Appearance (CLEAR) Urine pH (5.0-6.5) Ur Specific [place] (1.010-1.025) Urine Protein (NEGATIVE) mg/dL Urine Glucose (UA) (NORMAL) mg/dL Urine Ketones (NEGATIVE) mg/dL Urine Occult Blood (NEGATIVE) Urine Nitrite (NEGATIVE) Urine Bilirubin (NEGATIVE) Urine Urobilinogen (NEGATIVE) mg/dL Ur Leukocyte Esterase (NEGATIVE) Urine RBC (0-5) Urine WBC (0-5) Ur Squamous Epith Cells (NS,R,O) Amorphous Sediment Urine Bacteria (NS) Urine Mucus (NS) 12/27/18 Range/Units 15:18 WBC (4.5-12.0) X10-3/uL RBC (3.23-5.20) x10(6)uL Hgb (11.5-15.5) g/dL Hct (30.0-51.3) % MCV (80-96) fL MCH (27.7-33.6) pg MCHC (32.2-35.4) g/dL RDW (11.5-15.5) % Plt Count (125-369) X10(3)uL MPV (7.4-10.4) fL Neut % (Auto) (46-82) % Lymph % (Auto) (13-37) % [place] % (Auto) (4-12) % Eos % (Auto) (1.0-5.0) % Baso % (Auto) (0-2) % Neut # (Auto) (1.6-8.3) # Lymph # (Auto) (0.6-5.0) # [place] # (Auto) (0.0-1.3) # Eos # (Auto) (0.0-0.8) # Baso # (Auto) (0.0-0.2) # PT (8.7-11.1) INR (0.89-1.13) APTT (24.4-33.2) SECONDS Sodium (135-145) mmol/L Potassium (3.5-5.3) mmol/L Chloride (100-110) mmol/L Carbon Dioxide (21-32) mmol/L BUN (7-18) mg/dL Creatinine (0.55-1.02) mg/dL Est Cr Clr Drug Dosing Estimated GFR (MDRD) (>60) BUN/Creatinine Ratio (9-20) Glucose (80-116) mg/dL Calcium (8.6-10.2) mg/dL Magnesium (1.8-2.5) mg/dL Total Bilirubin (0.1-1.3) mg/dL AST (5-25) IU/L ALT (12-36) U/L Alkaline Phosphatase (56-112) IU/L Creatine Kinase (60-160) IU/L Troponin I (<0.017-0.056) ng/mL C-Reactive Protein (0.5-0.9) mg/dL Total Protein (6.0-8.0) g/dL Albumin (3.2-4.6) g/dL Globulin g/dL Albumin/Globulin Ratio Urine Color Yellow (YELLOW) Urine Appearance Cloudy (CLEAR) Urine pH 7.0 H (5.0-6.5) Ur Specific [place] 1.015 (1.010-1.025) Urine Protein Negative (NEGATIVE) mg/dL Urine Glucose (UA) Normal (NORMAL) mg/dL Urine Ketones Negative (NEGATIVE) mg/dL Urine Occult Blood Negative (NEGATIVE) Urine Nitrite Negative (NEGATIVE) Urine Bilirubin Negative (NEGATIVE) Urine Urobilinogen Normal (NEGATIVE) mg/dL Ur Leukocyte Esterase Moderate H (NEGATIVE) Urine RBC 0-5 (0-5) Urine WBC 5-10 H (0-5) Ur Squamous Epith Cells Few H (NS,R,O) Amorphous Sediment Moderate Urine Bacteria Few H (NS) Urine Mucus Few H (NS) Result Diagrams: 12/27/18 14:30 12/27/18 14:30 - Problem List (1) Palliative care status SNOMED Code(s): 827445276 ICD Code: Z51.5 - ENCOUNTER FOR PALLIATIVE CARE Status: Acute Current Visit: Yes (2) Weakness SNOMED Code(s): 24428064 ICD Code: R53.1 - WEAKNESS Status: Acute Current Visit: Yes (3) Chronic headache SNOMED Code(s): 802503561 ICD Code: R51 - HEADACHE Status: Acute Current Visit: Yes (4) Multiple falls SNOMED Code(s): 865886884 ICD Code: R29.6 - REPEATED FALLS Status: Acute Current Visit: Yes (5) Dehydration SNOMED Code(s): 91155994 ICD Code: E86.0 - DEHYDRATION Status: Acute Current Visit: Yes (6) Altered mental state SNOMED Code(s): 161465896 ICD Code: R41.82 - ALTERED MENTAL STATUS, UNSPECIFIED Status: Acute Current Visit: Yes Problem List Initiated/Reviewed/Updated: Yes Orders Last 24hrs: Active Orders 24 hr Category Date Time Status Admission Status [Patient Status] [ADT] Routine ADT 12/27/18 16:26 Active Patient Status Manage Transfer [TRANSFER] Routine ADT 12/27/18 16:32 Active Cardiac Monitoring [RC] .As Directed Care 12/27/18 16:38 Active EKG Documentation Completion [RC] ASDIRECTED Care 12/27/18 14:08 Active Cervical Spine wo Cont [CT] Stat Exams 12/27/18 14:06 Taken Chest 2V [CR] Stat Exams 12/27/18 15:28 Taken Head wo Cont [CT] Stat Exams 12/27/18 14:06 Taken Lumbar Spine 2 or 3V [CR] Stat Exams 12/27/18 14:06 Taken Sodium Chloride 0.9% [Saline Flush] Med 12/27/18 14:06 Active 10 ml FLUSH ASDIRECTED PRN Peripheral IV Insertion Adult [OM.PC] Routine Oth 12/27/18 14:06 Ordered Resuscitation Status Routine Resus Stat 12/27/18 16:35 Ordered EKG 12 Lead [EK] Routine Ther 12/27/18 14:06 Ordered Medication Orders Sodium Chloride (Saline Flush) 10 ml FLUSH ASDIRECTED PRN PRN Reason: Keep Vein Open Last Admin: 12/27/18 15:20 Dose: 10 ml Assessment/Plan Comment:: 73 year old female with weakness, altered mental status, and history of multiple recent falls most likely due to medication side effects and dehydration. Head and spin CT scan negative for acute changes. - Admit patient - hall monitor - IV fluid - PT/OT - Orthostatic vital - Will hold his Topamax. will give her PRN toradol for headache - Resume the rest of her home medications - DVT prophylaxis - Full code <Susanne Garciarick - Last Filed: 12/28/18 16:08> L&D History of Present Illness - General Admit Problem/Dx: Patient Status Order with Admit Dx/Problem 12/28/18 09:45 Admission Status [Patient Status] [ADT] Routine Admission Diagnosis/Problem Admission Diagnosis/Problem Chest pain L&D Exam - Vital Signs Vital Signs: Last Vital Signs Temp 98.8 F 12/28/18 08:00 Pulse 66 12/28/18 04:00 Resp 16 12/28/18 08:00 BP 115/67 12/28/18 08:00 Pulse Ox 93 L 12/28/18 08:00 - Patient Data Lab Results Last 24 hrs: Laboratory Results - last 24 hr 12/28/18 Range/Units 06:30 PT 10.9 (8.7-11.1) INR 1.12 (0.89-1.13) Result Diagrams: 12/27/18 14:30 12/27/18 14:30 Orders Last 24hrs: Active Orders 24 hr Category Date Time Status Admission Status [Patient Status] [ADT] Routine ADT 12/28/18 09:45 Active Antiembolic Devices [RC] .Routine Care 12/27/18 19:00 Active Pulse Oximetry [RC] PRN Care 12/27/18 19:00 Active Up With Assistance [RC] ASDIRECTED Care 12/27/18 18:07 Active Up With Assistance [RC] ASDIRECTED Care 12/27/18 19:00 Active VTE/DVT Education [RC] Click to Edit Care 12/27/18 19:00 Active Vital Signs [RC] QSHIFT Care 12/27/18 19:00 Active Consult to Occupational Therapy [OT Evaluation and Cons 12/27/18 18:09 Active Treatment] [CONS] Routine Consult to Physical Therapy [PT Evaluation and Cons 12/27/18 18:09 Active Treatment] [CONS] Routine Regular Diet [DIET] Diet 12/27/18 Dinner Active INR,PT,PROTHROMBIN TIME [COAG] DAILY Lab 12/29/18 06:00 Ordered INR,PT,PROTHROMBIN TIME [COAG] DAILY Lab 12/30/18 06:00 Ordered INR,PT,PROTHROMBIN TIME [COAG] DAILY Lab 12/31/18 06:00 Ordered Acetaminophen [Tylenol Extra Strength] Med 12/27/18 19:00 Active 500 mg PO QID PRN Aspirin [Halfprin] Med 12/28/18 09:00 Active 81 mg PO DAILY Benztropine [Cogentin] Med 12/28/18 06:00 Active 1 mg PO BID@0600,1500 Enoxaparin [Lovenox] Med 12/27/18 20:00 Active 30 mg SUBCUT Q24H Escitalopram [Lexapro] Med 12/28/18 09:00 Active 10 mg PO DAILY Gabapentin [Neurontin] Med 12/27/18 20:00 Active 900 mg PO TID@06,15,20 Pantoprazole [ProTONIX] Med 12/28/18 20:00 Active 40 mg PO BID@0600,2000 SUMAtriptan [Imitrex] Med 12/28/18 11:00 Active 50 mg PO ASDIRECTED PRN Warfarin Sliding Scale [Coumadin Sliding Scale] Med 12/28/18 13:30 Pending 1 each PO ASDIRECTED Warfarin [Coumadin] Med 12/28/18 16:00 Active 2.5 mg PO SuTuWeThSa@1600 Warfarin [Coumadin] Med 01/01/19 16:00 Active 5 mg PO MoFr@1600 lamoTRIgine Med 12/28/18 06:00 Active 100 mg PO QAM rOPINIRole HCl [Requip XL] Med 12/28/18 20:00 Active 4 mg PO DAILY@2000 Convert IV to Saline Lock [OM.PC] Routine Oth 12/28/18 09:53 Ordered DVT/VTE Prophylaxis Reflex [OM.PC] Per Unit Routine Oth 12/27/18 19:00 Ordered Resuscitation Status Routine Resus Stat 12/27/18 16:35 Ordered Medication Orders Acetaminophen (Tylenol Extra Strength) 500 mg PO QID PRN PRN Reason: HEADACHES Aspirin (Halfprin) 81 mg PO DAILY [facility] Last Admin: 12/28/18 09:09 Dose: 81 mg Benztropine Mesylate (Cogentin) 1 mg PO BID@0600,1500 [facility] Last Admin: 12/28/18 05:34 Dose: 1 mg Enoxaparin Sodium (Lovenox) 30 mg SUBCUT Q24H [facility] Last Admin: 12/27/18 21:01 Dose: 30 mg Escitalopram Oxalate (Lexapro) 10 mg PO DAILY [facility] Last Admin: 12/28/18 09:09 Dose: 10 mg Gabapentin (Neurontin) 900 mg PO TID@,15,20 [facility] Last Admin: 12/28/18 05:35 Dose: 900 mg Admin: 12/27/18 21:23 Dose: 900 mg Lamotrigine (Lamotrigine) 100 mg PO QAM [facility] Last Admin: 12/28/18 05:35 Dose: 100 mg Pantoprazole Sodium (Protonix) 40 mg PO BID@0600,2000 [facility] Ropinirole HCl (Requip Xl) 4 mg PO DAILY@2000 [facility] Sodium Chloride (Saline Flush) 10 ml FLUSH ASDIRECTED PRN PRN Reason: Keep Vein Open Last Admin: 12/27/18 15:20 Dose: 10 ml Sumatriptan Succinate (Imitrex) 50 mg PO ASDIRECTED PRN PRN Reason: MIGRAINES Warfarin Sodium (Coumadin) 2.5 mg PO SuTuWeThSa@1600 [facility] Warfarin Sodium (Coumadin) 5 mg PO MoFr@1600 [facility] Warfarin Sodium (Coumadin Sliding Scale) 1 each PO ASDIRECTED [facility] Assessment/Plan Comment:: I attest that seen and examined this patient with the resident today.
[2018-12-27] MEDS ORDERED: Sodium Chloride 0.9% 1,000 ML IV SCH (18:15)
[2018-12-27] MEDS ORDERED: SUMATRIPTAN 100 MG PO SCH (19:00)
[2018-12-27] MEDS: Enoxaparin 30 MG/0.3 ML Syringe SUBCUT SCH (21:01)
[2018-12-27] MEDS: OMEPRAZOLE 20 MG PO SCH (21:23)
[2018-12-27] MEDS: Gabapentin 300 MG Cap PO SCH (21:23)
[2018-12-28] MEDS: Benztropine 1 MG Tab PO SCH ×2 (05:34→16:25)
[2018-12-28] MEDS: lamoTRIgine 100 MG Tab PO SCH (05:35)
[2018-12-28] MEDS: Gabapentin 300 MG Cap PO SCH ×3 (05:35→19:51)
[2018-12-28] MEDS: OMEPRAZOLE 20 MG PO SCH (05:36)
[2018-12-28] MEDS ORDERED: ROPINIROLE HCL 4 MG PO SCH ×2 (09:00→20:00)
--- NOTE | 2018-12-28 09:04 | PCM.PN ---
<ThaiPaul - Last Filed: 12/28/18 08:58> - General Info Date of Service: 12/28/18 Admission Dx/Problem (Free Text): Patient reports feeling little bit better today. her headache is well controlled. she is working with therapist, she is still weak and her legs gave up at the end of the walk. She is tolerating her diet well. no nausea or vomiting. had BM this morning. she denies chest pain or SOB. no Fall since admission - Review of Systems General: Reports: Weakness HEENT: Reports: No Symptoms Pulmonary: Reports: No Symptoms Cardiovascular: Reports: No Symptoms Gastrointestinal: Reports: No Symptoms Genitourinary: Reports: No Symptoms Musculoskeletal: Reports: Joint Pain Skin: Reports: No Symptoms Neurological: Reports: Weakness Psychiatric: Reports: No Symptoms - Patient Data Vitals - Most Recent: Last Vital Signs Temp 37.1 C 12/28/18 08:00 Pulse 66 12/28/18 04:00 Resp 16 12/28/18 08:00 BP 115/67 12/28/18 08:00 Pulse Ox 93 L 12/28/18 08:00 Weight - Most Recent: 246 lb 8 oz Lab Results Last 24 Hours: Laboratory Results - last 24 hr 12/27/18 12/27/18 12/27/18 Range/Units 14:30 14:30 14:30 WBC 8.4 (4.5-12.0) X10-3/uL RBC 3.95 (3.23-5.20) x10(6)uL Hgb 12.3 (11.5-15.5) g/dL Hct 35.6 (30.0-51.3) % MCV 90.1 (80-96) fL MCH 31.1 (27.7-33.6) pg MCHC 34.5 (32.2-35.4) g/dL RDW 13.6 (11.5-15.5) % Plt Count 298 (125-369) X10(3)uL MPV 8.1 (7.4-10.4) fL Neut % (Auto) 73.7 (46-82) % Lymph % (Auto) 16.5 (13-37) % Dawes % (Auto) 6.7 (4-12) % Eos % (Auto) 2 (1.0-5.0) % Baso % (Auto) 1 (0-2) % Neut # (Auto) 6.1 (1.6-8.3) # Lymph # (Auto) 1.4 (0.6-5.0) # Dawes # (Auto) 0.6 (0.0-1.3) # Eos # (Auto) 0.2 (0.0-0.8) # Baso # (Auto) 0.1 (0.0-0.2) # PT (8.7-11.1) INR (0.89-1.13) APTT (24.4-33.2) SECONDS Sodium 142 (135-145) mmol/L Potassium 4.4 (3.5-5.3) mmol/L Chloride 106 (100-110) mmol/L Carbon Dioxide 32 (21-32) mmol/L BUN 19 H (7-18) mg/dL Creatinine 1.1 H (0.55-1.02) mg/dL Est Cr Clr Drug Dosing TNP Estimated GFR (MDRD) 49 L (>60) BUN/Creatinine Ratio 17.3 (9-20) Glucose 133 H (80-116) mg/dL Calcium 8.8 (8.6-10.2) mg/dL Magnesium 1.8 (1.8-2.5) mg/dL Total Bilirubin 0.3 (0.1-1.3) mg/dL AST 17 (5-25) IU/L ALT 32 (12-36) U/L Alkaline Phosphatase 125 H (56-112) IU/L Creatine Kinase (60-160) IU/L Troponin I < 0.017 L (<0.017-0.056) ng/mL C-Reactive Protein 1.0 H (0.5-0.9) mg/dL Total Protein 6.4 (6.0-8.0) g/dL Albumin 3.1 L (3.2-4.6) g/dL Globulin 3.3 g/dL Albumin/Globulin Ratio 0.9 Urine Color (YELLOW) Urine Appearance (CLEAR) Urine pH (5.0-6.5) Ur Specific [place] (1.010-1.025) Urine Protein (NEGATIVE) mg/dL Urine Glucose (UA) (NORMAL) mg/dL Urine Ketones (NEGATIVE) mg/dL Urine Occult Blood (NEGATIVE) Urine Nitrite (NEGATIVE) Urine Bilirubin (NEGATIVE) Urine Urobilinogen (NEGATIVE) mg/dL Ur Leukocyte Esterase (NEGATIVE) Urine RBC (0-5) Urine WBC (0-5) Ur Squamous Epith Cells (NS,R,O) Amorphous Sediment Urine Bacteria (NS) Urine Mucus (NS) 12/27/18 12/27/18 12/27/18 Range/Units 14:30 14:30 14:30 WBC (4.5-12.0) X10-3/uL RBC (3.23-5.20) x10(6)uL Hgb (11.5-15.5) g/dL Hct (30.0-51.3) % MCV (80-96) fL MCH (27.7-33.6) pg MCHC (32.2-35.4) g/dL RDW (11.5-15.5) % Plt Count (125-369) X10(3)uL MPV (7.4-10.4) fL Neut % (Auto) (46-82) % Lymph % (Auto) (13-37) % Dawes % (Auto) (4-12) % Eos % (Auto) (1.0-5.0) % Baso % (Auto) (0-2) % Neut # (Auto) (1.6-8.3) # Lymph # (Auto) (0.6-5.0) # Dawes # (Auto) (0.0-1.3) # Eos # (Auto) (0.0-0.8) # Baso # (Auto) (0.0-0.2) # PT 12.4 H (8.7-11.1) INR 1.28 H (0.89-1.13) APTT 23.5 L (24.4-33.2) SECONDS Sodium (135-145) mmol/L Potassium (3.5-5.3) mmol/L Chloride (100-110) mmol/L Carbon Dioxide (21-32) mmol/L BUN (7-18) mg/dL Creatinine (0.55-1.02) mg/dL Est Cr Clr Drug Dosing Estimated GFR (MDRD) (>60) BUN/Creatinine Ratio (9-20) Glucose (80-116) mg/dL Calcium (8.6-10.2) mg/dL Magnesium (1.8-2.5) mg/dL Total Bilirubin (0.1-1.3) mg/dL AST (5-25) IU/L ALT (12-36) U/L Alkaline Phosphatase (56-112) IU/L Creatine Kinase 81 (60-160) IU/L Troponin I (<0.017-0.056) ng/mL C-Reactive Protein (0.5-0.9) mg/dL Total Protein (6.0-8.0) g/dL Albumin (3.2-4.6) g/dL Globulin g/dL Albumin/Globulin Ratio Urine Color (YELLOW) Urine Appearance (CLEAR) Urine pH (5.0-6.5) Ur Specific [place] (1.010-1.025) Urine Protein (NEGATIVE) mg/dL Urine Glucose (UA) (NORMAL) mg/dL Urine Ketones (NEGATIVE) mg/dL Urine Occult Blood (NEGATIVE) Urine Nitrite (NEGATIVE) Urine Bilirubin (NEGATIVE) Urine Urobilinogen (NEGATIVE) mg/dL Ur Leukocyte Esterase (NEGATIVE) Urine RBC (0-5) Urine WBC (0-5) Ur Squamous Epith Cells (NS,R,O) Amorphous Sediment Urine Bacteria (NS) Urine Mucus (NS) 12/27/18 12/28/18 Range/Units 15:18 06:30 WBC (4.5-12.0) X10-3/uL RBC (3.23-5.20) x10(6)uL Hgb (11.5-15.5) g/dL Hct (30.0-51.3) % MCV (80-96) fL MCH (27.7-33.6) pg MCHC (32.2-35.4) g/dL RDW (11.5-15.5) % Plt Count (125-369) X10(3)uL MPV (7.4-10.4) fL Neut % (Auto) (46-82) % Lymph % (Auto) (13-37) % Dawes % (Auto) (4-12) % Eos % (Auto) (1.0-5.0) % Baso % (Auto) (0-2) % Neut # (Auto) (1.6-8.3) # Lymph # (Auto) (0.6-5.0) # Dawes # (Auto) (0.0-1.3) # Eos # (Auto) (0.0-0.8) # Baso # (Auto) (0.0-0.2) # PT 10.9 (8.7-11.1) INR 1.12 (0.89-1.13) APTT (24.4-33.2) SECONDS Sodium (135-145) mmol/L Potassium (3.5-5.3) mmol/L Chloride (100-110) mmol/L Carbon Dioxide (21-32) mmol/L BUN (7-18) mg/dL Creatinine (0.55-1.02) mg/dL Est Cr Clr Drug Dosing Estimated GFR (MDRD) (>60) BUN/Creatinine Ratio (9-20) Glucose (80-116) mg/dL Calcium (8.6-10.2) mg/dL Magnesium (1.8-2.5) mg/dL Total Bilirubin (0.1-1.3) mg/dL AST (5-25) IU/L ALT (12-36) U/L Alkaline Phosphatase (56-112) IU/L Creatine Kinase (60-160) IU/L Troponin I (<0.017-0.056) ng/mL C-Reactive Protein (0.5-0.9) mg/dL Total Protein (6.0-8.0) g/dL Albumin (3.2-4.6) g/dL Globulin g/dL Albumin/Globulin Ratio Urine Color Yellow (YELLOW) Urine Appearance Cloudy (CLEAR) Urine pH 7.0 H (5.0-6.5) Ur Specific [place] 1.015 (1.010-1.025) Urine Protein Negative (NEGATIVE) mg/dL Urine Glucose (UA) Normal (NORMAL) mg/dL Urine Ketones Negative (NEGATIVE) mg/dL Urine Occult Blood Negative (NEGATIVE) Urine Nitrite Negative (NEGATIVE) Urine Bilirubin Negative (NEGATIVE) Urine Urobilinogen Normal (NEGATIVE) mg/dL Ur Leukocyte Esterase Moderate H (NEGATIVE) Urine RBC 0-5 (0-5) Urine WBC 5-10 H (0-5) Ur Squamous Epith Cells Few H (NS,R,O) Amorphous Sediment Moderate Urine Bacteria Few H (NS) Urine Mucus Few H (NS) Med Orders - Current: Current Medications Acetaminophen (Tylenol Extra Strength) 500 mg PO QID PRN PRN Reason: HEADACHES Aspirin (Halfprin) 81 mg PO DAILY [facility] Benztropine Mesylate (Cogentin) 1 mg PO BID@0600,1500 [facility] Last Admin: 12/28/18 05:34 Dose: 1 mg Enoxaparin Sodium (Lovenox) 30 mg SUBCUT Q24H [facility] Last Admin: 12/27/18 21:01 Dose: 30 mg Escitalopram Oxalate (Lexapro) 10 mg PO DAILY [facility] Gabapentin (Neurontin) 900 mg PO TID@,, [facility] Last Admin: 12/28/18 05:35 Dose: 900 mg Sodium Chloride (Normal Saline) 1,000 mls @ 100 mls/hr IV ASDIRECTED [facility] Lamotrigine (Lamotrigine) 100 mg PO QAM [facility] Last Admin: 12/28/18 05:35 Dose: 100 mg Omeprazole (Prilosec ) 20 Mg Cap Own Med 0 mg PO BID@ [facility] Last Admin: 12/28/18 05:36 Dose: 20 mg Ropinirole 4 Mg Tab (Own Med) 0 mg PO DAILY@1999 [facility] Last Admin: 12/27/18 21:23 Dose: 4 mg Non-Formulary Medication (Ropinirole Hcl [Requip]) 4 mg PO DAILY [facility] Sumatriptan 100mg * (Ptom) 0 mg PO ASDIRECTED [facility] Sodium Chloride (Saline Flush) 10 ml FLUSH ASDIRECTED PRN PRN Reason: Keep Vein Open Last Admin: 12/27/18 15:20 Dose: 10 ml Warfarin Sodium (Coumadin) 2.5 mg PO SuTuWeThFrSa@1600 [facility] Warfarin Sodium (Coumadin) 5 mg PO MO [facility] Discontinued Medications Acetaminophen (Tylenol Extra Strength) 1,000 mg PO ONETIME ONE Stop: 12/27/18 16:30 Last Admin: 12/27/18 16:36 Dose: 1,000 mg Sodium Chloride (Normal Saline) 500 mls @ 999 mls/hr IV .BOLUS ONE Stop: 12/27/18 15:49 Last Admin: 12/27/18 16:00 Dose: 999 mls/hr - Exam General: Alert, Oriented, Cooperative HEENT: Pupils Equal, Pupils Reactive, EOMI, Mucous Membr. Moist/[place] Neck: Supple Lungs: Clear to Auscultation, Normal Respiratory Effort Cardiovascular: Regular Rate, Regular Rhythm GI/Abdominal Exam: Normal Bowel Sounds, Soft, Non-Tender (Female) Exam: Deferred Back Exam: Normal Inspection Extremities: Normal Inspection Skin: Warm Neurological: Other (weakness ) Psy/Mental Status: Alert, Normal Affect - Problem List & Annotations (1) Palliative care status SNOMED Code(s): 742618529 Code(s): Z51.5 - ENCOUNTER FOR PALLIATIVE CARE Status: Acute Current Visit: Yes (2) Weakness SNOMED Code(s): 92602501 Code(s): R53.1 - WEAKNESS Status: Acute Current Visit: Yes (3) Chronic headache SNOMED Code(s): 422571067 Code(s): R51 - HEADACHE Status: Acute Current Visit: Yes (4) Multiple falls SNOMED Code(s): 324811803 Code(s): R29.6 - REPEATED FALLS Status: Acute Current Visit: Yes (5) Dehydration SNOMED Code(s): 05605604 Code(s): E86.0 - DEHYDRATION Status: Acute Current Visit: Yes (6) Altered mental state SNOMED Code(s): 292143742 Code(s): R41.82 - ALTERED MENTAL STATUS, UNSPECIFIED Status: Acute Current Visit: Yes - Problem List Review Problem List Initiated/Reviewed/Updated: Yes - Plan Plan:: 73 year old female with weakness, altered mental status, and history of multiple recent falls most likely due to medication side effects and dehydration. Head and spin CT scan negative for acute changes. - Will change her status to admission, Patient has acute changes in her strength over 2 weeks periods compare to her baseline, most likely due to side effects of medication. Continue PT/OT for strength <Noe Garcia - Last Filed: 12/28/18 16:09> - Patient Data Vitals - Most Recent: Last Vital Signs Temp 98.8 F 12/28/18 08:00 Pulse 66 12/28/18 04:00 Resp 16 12/28/18 08:00 BP 115/67 12/28/18 08:00 Pulse Ox 93 L 12/28/18 08:00 Lab Results Last 24 Hours: Laboratory Results - last 24 hr 12/28/18 Range/Units 06:30 PT 10.9 (8.7-11.1) INR 1.12 (0.89-1.13) Med Orders - Current: Current Medications Acetaminophen (Tylenol Extra Strength) 500 mg PO QID PRN PRN Reason: HEADACHES Aspirin (Halfprin) 81 mg PO DAILY [facility] Last Admin: 12/28/18 09:09 Dose: 81 mg Benztropine Mesylate (Cogentin) 1 mg PO BID@0600,1500 [facility] Last Admin: 12/28/18 05:34 Dose: 1 mg Enoxaparin Sodium (Lovenox) 30 mg SUBCUT Q24H [facility] Last Admin: 12/27/18 21:01 Dose: 30 mg Escitalopram Oxalate (Lexapro) 10 mg PO DAILY [facility] Last Admin: 12/28/18 09:09 Dose: 10 mg Gabapentin (Neurontin) 900 mg PO TID@06,15,20 [facility] Last Admin: 12/28/18 05:35 Dose: 900 mg Lamotrigine (Lamotrigine) 100 mg PO QAM [facility] Last Admin: 12/28/18 05:35 Dose: 100 mg Pantoprazole Sodium (Protonix) 40 mg PO BID@0600,2000 [facility] Ropinirole HCl (Requip Xl) 4 mg PO DAILY@2000 [facility] Sodium Chloride (Saline Flush) 10 ml FLUSH ASDIRECTED PRN PRN Reason: Keep Vein Open Last Admin: 12/27/18 15:20 Dose: 10 ml Sumatriptan Succinate (Imitrex) 50 mg PO ASDIRECTED PRN PRN Reason: MIGRAINES Warfarin Sodium (Coumadin) 2.5 mg PO SuTuWeThSa@1600 [facility] Warfarin Sodium (Coumadin) 5 mg PO MoFr@1600 [facility] Warfarin Sodium (Coumadin Sliding Scale) 1 each PO ASDIRECTED [facility] Discontinued Medications Acetaminophen (Tylenol Extra Strength) 1,000 mg PO ONETIME ONE Stop: 12/27/18 16:30 Last Admin: 12/27/18 16:36 Dose: 1,000 mg Sodium Chloride (Normal Saline) 500 mls @ 999 mls/hr IV .BOLUS ONE Stop: 12/27/18 15:49 Last Admin: 12/27/18 16:00 Dose: 999 mls/hr Sodium Chloride (Normal Saline) 1,000 mls @ 100 mls/hr IV ASDIRECTED [facility] Omeprazole (Prilosec ) 20 Mg Cap Own Med 0 mg PO BID@ [facility] Last Admin: 12/28/18 05:36 Dose: 20 mg Ropinirole 4 Mg Tab (Own Med) 0 mg PO DAILY@1999 [facility] Last Admin: 12/27/18 21:23 Dose: 4 mg Sumatriptan 100mg * (Ptom) 0 mg PO ASDIRECTED [facility] - My Orders Last 24 Hours: My Active Orders 12/27/18 18:07 Up With Assistance [RC] ASDIRECTED 12/27/18 18:09 Consult to Occupational Therapy [OT Evaluation and Treatment] [CONS] Routine Consult to Physical Therapy [PT Evaluation and Treatment] [CONS] Routine 12/27/18 19:00 Acetaminophen [Tylenol Extra Strength] 500 mg PO QID PRN 12/27/18 20:00 Enoxaparin [Lovenox] 30 mg SUBCUT Q24H Gabapentin [Neurontin] 900 mg PO TID@,,20 12/28/18 06:00 Benztropine [Cogentin] 1 mg PO BID@0600,1500 lamoTRIgine 100 mg PO QAM 12/28/18 09:00 Aspirin [Halfprin] 81 mg PO DAILY Escitalopram [Lexapro] 10 mg PO DAILY 12/28/18 09:45 Admission Status [Patient Status] [ADT] Routine 12/28/18 09:53 Convert IV to Saline Lock [OM.PC] Routine 12/28/18 11:00 SUMAtriptan [Imitrex] 50 mg PO ASDIRECTED PRN 12/28/18 13:30 Warfarin Sliding Scale [Coumadin Sliding Scale] 1 each PO ASDIRECTED 12/28/18 16:00 Warfarin [Coumadin] 2.5 mg PO SuTuWeThSa@159912/28/18 20:00 Pantoprazole [ProTONIX] 40 mg PO BID@ rOPINIRole HCl [Requip XL] 4 mg PO DAILY@199912/29/18 06:00 INR,PT,PROTHROMBIN TIME [COAG] DAILY 12/30/18 06:00 INR,PT,PROTHROMBIN TIME [COAG] DAILY 12/31/18 06:00 INR,PT,PROTHROMBIN TIME [COAG] DAILY 01/01/19 16:00 Warfarin [Coumadin] 5 mg PO MoFr@1599 - Plan Plan:: I attest that seen and examined this patient with the resident.
[2018-12-28] MEDS: Aspirin 81 MG Tab.EC PO SCH (09:09)
[2018-12-28] MEDS: Escitalopram 10 MG Tab PO SCH (09:09)
--- NOTE | 2018-12-28 10:47 | CR ---
INDICATION: Fall with back pain, fell three days ago, chronic pain. LUMBOSACRAL SPINE: Three views of the lumbosacral spine were obtained, revealing a mild dextroconvex scoliosis of the upper middle lumbar spine. The pedicles appear to be intact. Bone density may be somewhat diminished, raising question of osteoporosis - correlate clinically. Degenerative disk disease and hypertrophic degenerative changes are noted at T12 -L1, L1-2, L2-3, and L5-S1. Vertebral body heights were maintained. Sacroiliac joints appear to be intact. A mass in the pelvis most likely represents distended urinary bladder. IMPRESSION: 1. No definite acute fracture or dislocation. 2. Degenerative changes and disk disease. 3. Scoliosis with minimal rotatory component. 4. Possible demineralization, raising question of osteoporosis - correlate clinically. MTDD
--- NOTE | 2018-12-28 10:55 | CT ---
INDICATION: Weakness, dizziness, head injury, fell three days ago. CT HEAD WITHOUT CONTRAST: Spiral axial images of the brain were obtained with sagittal and coronal reconstructions, 12/27/18, and compared with 12/20/18. Total exam DLP = 1,476.93 mGy-cm. No cranial fracture site was identified. Visualized paranasal sinuses and mastoid air cells were fairly well-aerated with retention cysts noted at a right-sided ethmoidal air cell and adjacent ethmoidal air cell wall thickening, as previously. No evidence of sinusitis was seen. There is again no shift of midline structures with somewhat prominent ventricles , compatible with mild to moderate degree of central atrophy. A lacunar infarct is noted in the left basal ganglia, which was present previously. Minimal white matter changes are again noted, compatible with a minimal degree of microvascular disease, although other cause of leukoencephalopathy cannot be excluded - correlate clinically. No bleeding site or hematoma or other definite acute intracranial abnormality was suggested. The orbits were unremarkable. IMPRESSION: 1. No definite acute intracranial abnormality, little change compared with 7 days prior examination. 2. Mild central atrophy. 3. Left basal ganglia lacunar infarct. 4. Internal carotid artery and vertebral artery calcifications, compatible with cerebrovascular disease. 5. Minimal microvascular disease type changes in the white matter, which should be correlated clinically. Report was called to Dr. Du Barahona at 1526 hours on 12/27/18. [facility]
[2018-12-28] MEDS ORDERED: SUMAtriptan 50 MG Tab PO PRN (11:00)
--- NOTE | 2018-12-28 11:08 | CT ---
INDICATION: Fall with head injury and neck pain, three days prior. CT CERVICAL SPINE WITHOUT CONTRAST: Spiral 2.5 mm axial sections were obtained through the cervical spine with sagittal and coronal reconstructions, 12/27/18 - no comparisons. Total exam DLP = 517.40 mGy-cm. There is suggestion of central lobular emphysema in this patient in the upper lung dowling included on the study. There is suggestion of some bulging disk material at C2-3 midline and to the left with mild bulging at C3-4. No definite spinal stenosis was seen. A definite acute fracture site was not identified with the odontoid and atlas appearing intact. Narrowing of the disk spaces and hypertrophic degenerative changes with sclerosis and subchondral cystic change is noted at the C4-5, C5-6, and C6-7 levels with least severe degenerative change at the C6-7 level. There also is some degenerative disk disease at C7-T1 with vacuum disk phenomenon at C6-7 and C7-T1. Impingement on neural foramina is noted, mostly on the right at the C4- 5 and especially C5-6 levels. Prevertebral space and bone density appear to be fairly normal. Degenerative changes are also noted at the uncinate joints to a mild degree at C3-4 and more prominently at C4-5, C5-6, and C6-7. The most severe changes are at C6-7. Lateral mass hypertrophic degenerative changes are also noted, most prominent at C2-3, C3-4, and C4-5. IMPRESSION: 1. No acute fracture or dislocation. 2. Degenerative changes and disk disease with reversal of normal cervical lordosis centered at C5. Report was called to Dr. Du Barahona at 1526 hours on 12/27/18. [facility]
--- NOTE | 2018-12-28 11:15 | CR ---
INDICATION: Chest pain. CHEST: PA and lateral views of the chest were obtained 12/27/18 and compared with 05/22/14 and 05/26/10. Increase in AP diameter and flattening of diaphragm leaves with hyperaeration suggests COPD. There is an appearance of a mass behind the heart, suggesting a large fixed hiatal hernia. Overlying EKG leads are noted. The heart did not appear grossly enlarged but may be near the upper limits of normal in size. The aorta is tortuous with calcification in the arch. Bony structures are not well seen and appear grossly intact. It is difficult to exclude some patchy bronchopneumonia at the left lung base; however, markings at both lung bases appear similar to the previous examination and may simply be on the basis of fibrosis. At any rate, no consolidating pneumonia or effusion was seen. IMPRESSION: 1. No definite acute process but difficult to exclude minimal lingular patchy pneumonia, where markings are fairly heavy. 2. Progressive COPD. 3. Probable ASHD. MTDD
[2018-12-28] MEDS ORDERED: Warfarin Sliding Scale PO SCH (13:30)
[2018-12-28] MEDS ORDERED: Warfarin 2.5 MG Tab PO SCH (16:00)
[2018-12-28] MEDS: Acetaminophen 500 MG Tab PO PRN (16:27)
[2018-12-28] MEDS: Enoxaparin 30 MG/0.3 ML Syringe SUBCUT SCH (19:48)
[2018-12-28] MEDS: Pantoprazole 40 MG Tab.CR PO SCH (19:49)
[2018-12-29] MEDS: Benztropine 1 MG Tab PO SCH (06:13)
[2018-12-29] MEDS: lamoTRIgine 100 MG Tab PO SCH (06:13)
[2018-12-29] MEDS: Pantoprazole 40 MG Tab.CR PO SCH (06:14)
[2018-12-29] MEDS: Gabapentin 300 MG Cap PO SCH (06:15)
[2018-12-29] MEDS: Acetaminophen 500 MG Tab PO PRN (06:15)
[2018-12-29] MEDS: Escitalopram 10 MG Tab PO SCH (08:14)
[2018-12-29] MEDS: Aspirin 81 MG Tab.EC PO SCH (08:14)
[2018-12-29 08:32] VITALS: BP 117/64
[2018-12-29] MEDS ORDERED: Aluminum Hydroxide/Magnesium Hydroxide Susp 30 ML Cup PO PRN (09:25)
[2018-12-29] MEDS ORDERED: Warfarin 2.5 MG Tab PO ONE (12:00)
[2018-12-29] MEDS ORDERED: Warfarin 5 MG Tab PO SCH (16:00)
[2018-12-30] MEDS ORDERED: Warfarin 2.5 MG Tab PO SCH ×2 (16:00)
--- NOTE | 2019-01-01 08:22 | DISCH ---
DISCHARGE DATE: 12/29/2018 PRIMARY FINAL DIAGNOSES: Weakness, falls, and confusion secondary to Topamax. OTHER DIAGNOSES: 1. Schizoaffective disorder. 2. Restless legs syndrome. 3. Depression. 4. History of GERD. 5. Chronic headaches. 6. Remote history of deep venous thrombosis and pulmonary embolism. 7. Chest pain with cardiac workup in progress. OPERATIONS: None. COMPLICATIONS: None. HISTORY AND HOSPITAL COURSE: Deysi is a 73-year-old woman with the above medical problems, who was recently started on Topamax for headaches. She subsequently developed confusion, weakness, and falls. She was brought in through the emergency room and admitted. CT of the head was done, and it was unremarkable. Her Topamax was discontinued and her condition steadily improved back to her baseline. Deysi had also been in the process of workup for chest pain. A coronary artery angiogram had been scheduled and she was held off her warfarin for the week prior to this, and thus, after admission, the procedure was canceled for rescheduling, and she was placed back on her warfarin. The patient is improved enough for return to home with home health evaluation. She is discharged in stable condition to continue her medications. MEDICATIONS: As follows: 1. Senokot-S 1 to 2 tabs daily p.r.n. 2. Risperdal Consta 25 mg IM every 2 weeks. 3. Multiple vitamin 1 daily. 4. Magnesium 250 mg b.i.d. 5. Flonase 2 squirts each daily. 6. Ferrous sulfate 325 mg daily. 7. Vanicream daily p.r.n. 8. Diclofenac gel 4 g b.i.d. 9. Vitamin D3 of 1000 units daily. 10.Calcium 300 mg 1/2 tab b.i.d. 11.Lipitor 20 mg daily. 12.Warfarin 5 mg Mondays and Fridays, 2.5 mg Tuesdays, Wednesdays, , Saturdays, and Sundays. 13.Sumatriptan 50 mg p.r.n., headache. 14.Requip 4 mg p.o. daily. 15.Omeprazole 20 mg b.i.d. 16.Lamictal 100 mg daily. 17.Gabapentin 900 mg t.i.d. 18.Lexapro 10 mg daily. 19.Cogentin 1 mg b.i.d. 20.Aspirin 81 mg daily. 21.Tylenol 500 mg q.i.d. p.r.n. PLAN: The patient is to have follow up with Dr. Carter's office for rescheduling her coronary angiogram and instructions for when she should again discontinue her warfarin. She is to have an INR done in one week post discharge. /[id number] ANIBAL/CRISELDA
[2019-01-01] MEDS ORDERED: Warfarin 5 MG Tab PO SCH ×2 (16:00)
== END 2018-12-29 12:45 | disposition home health service (06) | DRG 948 ==
LOC: FB.ED 13:39 → FB.MS 16:31 → INTOOBSV 16:31 → OBSVTOIN 12-28 09:45
PROVIDERS: ADMIT Family Medicine; ATTEND Family Medicine
DX: R53.1 Weakness (principal); Z51.5 Encounter for palliative care; R41.0 Disorientation, unspecified; R42 Dizziness and giddiness; R29.6 Repeated falls; T42.6X5A Adverse effect of other antiepileptic and sedative-hypnotic drugs, initial encounter; Y92.009 Unspecified place in unspecified non-institutional (private) residence as the place of occurrence of the external cause; R07.9 Chest pain, unspecified; E86.0 Dehydration; I10 Essential (primary) hypertension; I48.91 Unspecified atrial fibrillation; R51 Headache; R09.02 Hypoxemia; Z99.81 Dependence on supplemental oxygen; Z86.711 Personal history of pulmonary embolism; Z86.718 Personal history of other venous thrombosis and embolism; Z87.891 Personal history of nicotine dependence; S09.90XA Unspecified injury of head, initial encounter; W19.XXXA Unspecified fall, initial encounter; Z91.81 History of falling; G25.81 Restless legs syndrome; Z86.73 Personal history of transient ischemic attack (TIA), and cerebral infarction without residual deficits; E78.00 Pure hypercholesterolemia, unspecified; K21.9 Gastro-esophageal reflux disease without esophagitis; M19.90 Unspecified osteoarthritis, unspecified site; M54.9 Dorsalgia, unspecified; G89.29 Other chronic pain; F41.9 Anxiety disorder, unspecified; F25.9 Schizoaffective disorder, unspecified; F31.9 Bipolar disorder, unspecified; D64.9 Anemia, unspecified; Z79.82 Long term (current) use of aspirin; Z79.01 Long term (current) use of anticoagulants; Z88.2 Allergy status to sulfonamides; Z79.899 Other long term (current) drug therapy; Z90.49 Acquired absence of other specified parts of digestive tract
CPT/HCPCS: 36415 ×2; 70450; 71046; 72100; 72125; 80053; 81001; 82550; 83735; 84484; 85025; 85610 ×2; 85730; 86140; 93005; 96372; 99285; A9270 ×10; G0378 ×2; J1650; J7040; 93010; 97165-GO

== ENCOUNTER 2019-05-18 12:29 | Observation (INO) | payer MEDICARE, MEDICAID ==
--- NOTE | 2019-05-18 12:51 | EDM.PDOC ---
ED HPI GENERAL MEDICAL PROBLEM - General Chief Complaint: General Stated Complaint: SHAKKY AND WEAK Time Seen by Provider: 05/18/19 12:50 Source of Information: Reports: Patient History Limitations: Reports: No Limitations - History of Present Illness INITIAL COMMENTS - FREE TEXT/NARRATIVE: 73-year-old female who reports that she awoke at her usual time to approximate 6 AM today but when she tried to get out of bed she felt very weak and very shaky. She had no pain. She had no feelings of shortness of breath. She had no nausea or vomiting. She basically stayed in bed because when she sat up she was too weak to get up and felt too shaky to walk and was concerned that she would fall. She did take her morning medicines. Eventually when it did not seem to pass (she has had times when she has felt weak and shaky when she awoke but it passed and she was able to get up and do her normal daily activities), she called the ambulance to bring her to the hospital for evaluation. She reports that she has been eating and drinking normally. She has had no cough. She does feel that her urine output has been somewhat less but she has no hematuria or dysuria. She does use oxygen at night and EMS noted that her oxygen on arrival was 88% on room air (her O2 saturation on room air here has been 95%). She does feel that she has had a fever today but it was not measured. She has had some chills. She has been having some mild left-sided chest pain along her rib margin that is what sharp and worse with palpation and movement and somewhat with breathing. She would rate her pain as a 3-4/10 at present. She reports that yesterday she felt normal and was able to ambulate and do her daily activities without any problems. There are no other associated signs or symptoms. There are no other modifying factors. Onset: Today (Upon awakening) Duration: Constant Location: Reports: Other (weak all over and shaky.) Quality: Reports: Sharp (Left chest pain) Severity: Moderate (Her weakness and shakiness is moderate to severe. 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 (see below) (Nothing) - Related Data Allergies Allergy/AdvReac Type Severity Reaction Status Date / Time Sulfa (Sulfonamide Allergy Rash Verified 05/18/19 12:56 Antibiotics) Home Meds: Home Meds Benztropine [Cogentin] 1 mg PO BID@06,15 05/09/14 [History] Cholecalciferol (Vitamin D3) [Vitamin D3] 1,000 unit PO QAM 05/09/14 [History] Escitalopram [Lexapro] 10 mg PO QAM 05/09/14 [History] Omeprazole [Prilosec] 20 mg PO BID@,05/09/14 [History] atorvaSTATin Calcium [Atorvastatin Calcium] 20 mg PO DAILY@199905/09/14 [ History] lamoTRIgine [Lamictal] 100 mg PO QAM 05/09/14 [History] Acetaminophen 500 mg PO QID PRN 10/29/14 [History] Gabapentin 900 mg PO TID@,,10/29/14 [History] Warfarin [Coumadin] 2.5 mg PO SUTUWETHSA@1500 10/30/14 [History] Warfarin [Coumadin] 5 mg PO MOFR@1500 04/29/15 [History] Diclofenac Sodium [Voltaren] 4 gm TOP BID 06/05/18 [History] Emollient [Vanicream] 1 applic TOP DAILY@06 PRN 06/05/18 [History] Ferrous Sulfate 325 mg PO BID@,06/05/18 [History] Fluticasone Propionate [Flonase] 2 spray NASBOTH DAILY@0606/05/18 [History] SUMAtriptan Succinate [Imitrex] 50 mg PO ASDIRECTED 06/05/18 [History] rOPINIRole HCl [Requip Xl] 4 mg PO DAILY@199906/05/18 [History] Multivitamin [Daily Gil[place]] 1 tab PO QAM 08/23/18 [History] risperiDONE Microspheres [RisperiDAL Consta] 25 mg IM Q14D 08/23/18 [History] Albuterol [Ventolin HFA] 2 puff IH Q6H PRN 05/18/19 [History] Aspirin [Halfprin] 81 mg PO QAM 05/18/19 [History] Betamethasone Dipropionate [Diprolene 0.05% Lotion] 1 applic TP BID PRN [History] Calcium Citrate 600mg 300 mg PO BID@,05/18/19 [History] Clobetasol [Clobetasol Propionate 0.05%] 1 applic TOP BID PRN 05/18/19 [History] Dextran 70/Hypromellose [Artificial Tears] 1 drop EYEBOTH DAILY PRN 05/18/19 [ History] Ketotifen Fumarate [Zaditor] 1 drop EYEBOTH DAILY PRN 05/18/19 [History] Magnesium 250 mg PO BID@,05/18/19 [History] Nystatin [Nystatin Crm] 1 applic TOP BID PRN 05/18/19 [History] Verapamil HCl [Verapamil ER] 120 mg PO DAILY 05/18/19 [History] Past Medical History HEENT History: Reports: Cataract Cardiovascular History: Reports: Afib, Blood Clots/VTE/DVT, Heart Murmur, High Cholesterol, Hypertension, SOB on Exertion Respiratory History: Reports: PE, Pneumothorax, SOB, Other (See Below) Other Respiratory History: HYPOXIA, uses O2 @ 2L/NC @ hs. 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 (See Below) Other HEAVY TRUCK DRIVER History: ABNORMAL PAP, Musculoskeletal History: Reports: Arthritis, Back Pain, Chronic, Fracture, Osteoarthritis Other Musculoskeletal History: hx R fx collarbone with surgery Neurological History: Reports: None, Concussion, CVA, Headaches, Chronic, Head Trauma, Migraines Other Neuro History: CVA x 2 Psychiatric History: Reports: Anxiety, Bipolar, Depression, Panic Attack, Schizophrenia, Suicide Attempt, Other (See Below) Other Psychiatric History: PARANOIA Endocrine/Metabolic History: Reports: Obesity/BMI 30+ Hematologic History: Reports: Anemia, Anticoagulation Therapy, Blood Transfusion (s) Oncologic (Cancer) History: Reports: Breast - Infectious Disease History Infectious Disease History: Reports: Chicken Pox, Mumps - Past Surgical History HEENT Surgical History: Reports: Adenoidectomy, Cataract Surgery, Tonsillectomy Other HEENT Surgeries/Procedures: bilat cataract Respiratory Surgical History: Reports: Other (See Below) Other Respiratory Surgeries/Procedures: lung surgery following suicide attempt in past GI Surgical History: Reports: Cholecystectomy, Colonoscopy, EGD Female Surgical History: Reports: Breast Biopsy Neurological Surgical History: Reports: Other (See Below) Other Neurological Surgeries/Procedures: BACK INJECTIONS Musculoskeletal Surgical History: Reports: Arthroscopic Knee (Right knee), Arthroscopic Procedure, Other (See Below) Other Musculoskeletal Surgeries/Procedures:: RCLAVICAL SURGERY Social & Family History - Tobacco Use Smoking Status *Q: Former Smoker (Quit 3 years ago.) - Caffeine Use Caffeine Use: Reports: Coffee - Alcohol Use Alcohol Use History: No - Living Situation & Occupation Occupation: Retired Social History Comment: She lives by herself in her own apartment. ED ROS GENERAL - Review of Systems Review Of Systems: See Below Constitutional: Reports: Fever (Subjective), Chills, Malaise, Weakness HEENT: Reports: No Symptoms Respiratory: Reports: No Symptoms Cardiovascular: Reports: No Symptoms GI/Abdominal: Reports: No Symptoms : Denies: Dysuria, Flank Pain, Hematuria, Pain, Urgency Musculoskeletal: Reports: No Symptoms Skin: Reports: No Symptoms Neurological: Reports: No Symptoms (Except shaky and weak all over) Hematologic/Lymphatic: Reports: Easy Bleeding, Easy Bruising, Other (The patient is on Coumadin) Immunologic: Reports: No Symptoms ED EXAM, GENERAL - Physical Exam Exam: See Below Exam Limited By: No Limitations General Appearance: Alert, WD/WN, Mild Distress Eye Exam: Bilateral Eye: EOMI, Normal Inspection, PERRL Ears: Normal External Exam Ear Exam: Bilateral Ear: Auricle Normal Nose: Normal Inspection, Normal Mucosa, No Blood Throat/Mouth: Normal Voice, No Airway Compromise, Other (Somewhat dry mucous membranes) Head: Atraumatic, Normocephalic Neck: Normal Inspection, Supple, Non-Tender, Full Range of Motion Respiratory/Chest: No Respiratory Distress, Normal Breath Sounds, No Accessory Muscle Use, Chest Non-Tender, Crackles (Basilar), Rhonchi (Some rhonchi) Cardiovascular: Normal Peripheral Pulses, Regular Rate, Rhythm, No Murmur, Other (Patient's body habitus precludes accurate assessment of JVD.) Peripheral Pulses: 1+: Dorsalis Pedis (L), Dorsalis Pedis (R), 2+: Radial (L), Radial (R) GI/Abdominal: Normal Bowel Sounds, Soft, Non-Tender, No Mass Back Exam: Normal Inspection Extremities: Normal Inspection, Normal Range of Motion, Non-Tender, No Pedal Edema, Normal Capillary Refill, Other (Warm hands and warm feet.) Neurological: Alert, Oriented, CN II-XII Intact, No Motor/Sensory Deficits Skin Exam: Warm, Dry, Intact, Normal Color, No Rash EKG INTERPRETATION EKG Date: 05/18/19 Time: 13:01 Rhythm: NSR Rate (Beats/Min): 61 [place]: Normal P-Wave: Present QRS: Normal ST-T: Other (Anterior and lateral T-wave changes that are nonspecific) QT: Normal Comparison: No Change (No change from EKG performed on 12/27/2018.) Course - Vital Signs Last Recorded V/S: Last Vital Signs Temp 36.4 C 05/18/19 12:29 Pulse 69 05/18/19 12:29 Resp 18 05/18/19 12:29 BP 142/73 H 05/18/19 12:29 Pulse Ox 95 05/18/19 12:29 Orthostatic Blood Pressure [ 124/76 Standing] Orthostatic Blood Pressure [ 136/67 Sitting] Orthostatic Blood Pressure [ 139/67 Supine] - Orders/Labs/Meds Orders: Active Orders 24 hr Category Date Time Status EKG Documentation Completion [RC] ASDIRECTED Care 05/18/19 13:02 Active Orthostatic Vital Signs [RC] ASDIRECTED Care 05/18/19 14:29 Active Ang Chest [CT] Stat Exams 05/18/19 14:30 Taken CULTURE URINE [RM] Stat Lab 05/18/19 13:34 Received Sodium Chloride 0.9% [Normal Saline] 1,000 ml Med 05/18/19 14:15 Active IV ASDIRECTED Sodium Chloride 0.9% [Saline Flush] Med 05/18/19 13:01 Active 10 ml FLUSH ASDIRECTED PRN Peripheral IV Insertion Adult [OM.PC] Routine Oth 05/18/19 13:01 Ordered EKG 12 Lead [EK] Routine Ther 05/18/19 13:01 Ordered Medication Orders Sodium Chloride (Normal Saline) 1,000 mls @ 999 mls/hr IV ASDIRECTED DIVYA Stop: 05/22/19 14:11 Last Infusion: 05/18/19 14:51 Dose: 125 mls/hr Admin: 05/18/19 14:17 Dose: 999 mls/hr Ceftriaxone Sodium 1 gm/ (Sodium Chloride) 50 mls @ 200 mls/hr IV Q24H DIVYA Last Admin: 05/18/19 15:31 Dose: 200 mls/hr Sodium Chloride (Saline Flush) 10 ml FLUSH ASDIRECTED PRN PRN Reason: Keep Vein Open Last Admin: 05/18/19 13:42 Dose: 10 ml Labs: Laboratory Tests 05/18/19 05/18/19 05/18/19 Range/Units 13:15 13:15 13:15 WBC 12.2 H (4.5-12.0) X10-3/uL RBC 4.26 (3.23-5.20) x10(6)uL Hgb 12.8 (11.5-15.5) g/dL Hct 38.7 (30.0-51.3) % MCV 90.8 (80-96) fL MCH 30.0 (27.7-33.6) pg MCHC 33.0 (32.2-35.4) g/dL RDW 14.0 (11.5-15.5) % Plt Count 374 H (125-369) X10(3)uL MPV 8.1 (7.4-10.4) fL Add Manual Diff Yes Neutrophils % (Manual) 89 H (46-82) % Lymphocytes % (Manual) 7 L (13-37) % Monocytes % (Manual) 4 (4-12) % PT (8.7-11.1) INR (0.89-1.13) Sodium 138 (135-145) mmol/L Potassium 4.7 (3.5-5.3) mmol/L Chloride 100 D (100-110) mmol/L Carbon Dioxide 33 H (21-32) mmol/L BUN 21 H (7-18) mg/dL Creatinine 1.0 (0.55-1.02) mg/dL Est Cr Clr Drug Dosing 38.94 mL/min Estimated GFR (MDRD) 55 L (>60) BUN/Creatinine Ratio 21.0 H (9-20) Glucose 123 H (80-116) mg/dL Calcium 10.1 (8.6-10.2) mg/dL Magnesium (1.8-2.5) mg/dL Total Bilirubin 0.3 (0.1-1.3) mg/dL AST 11 D (5-25) IU/L ALT 22 D (12-36) U/L Alkaline Phosphatase 116 H (56-112) IU/L Troponin I < 0.017 L (<0.017-0.056) ng/mL C-Reactive Protein 11.9 H* (0.5-0.9) mg/dL Total Protein 7.6 (6.0-8.0) g/dL Albumin 3.0 L (3.2-4.6) g/dL Globulin 4.6 g/dL Albumin/Globulin Ratio 0.7 Urine Color (YELLOW) Urine Appearance (CLEAR) Urine pH (5.0-6.5) Ur Specific [place] (1.010-1.025) Urine Protein (NEGATIVE) mg/dL Urine Glucose (UA) (NORMAL) mg/dL Urine Ketones (NEGATIVE) mg/dL Urine Occult Blood (NEGATIVE) Urine Nitrite (NEGATIVE) Urine Bilirubin (NEGATIVE) Urine Urobilinogen (NEGATIVE) mg/dL Ur Leukocyte Esterase (NEGATIVE) Urine WBC (0-5) Ur Squamous Epith Cells (NS,R,O) Calcium Oxalate Crystal (NS) Urine Bacteria (NS) 05/18/19 05/18/19 05/18/19 Range/Units 13:15 13:15 13:34 WBC (4.5-12.0) X10-3/uL RBC (3.23-5.20) x10(6)uL Hgb (11.5-15.5) g/dL Hct (30.0-51.3) % MCV (80-96) fL MCH (27.7-33.6) pg MCHC (32.2-35.4) g/dL RDW (11.5-15.5) % Plt Count (125-369) X10(3)uL MPV (7.4-10.4) fL Add Manual Diff Neutrophils % (Manual) (46-82) % Lymphocytes % (Manual) (13-37) % Monocytes % (Manual) (4-12) % PT 15.7 H (8.7-11.1) INR 1.63 H (0.89-1.13) Sodium (135-145) mmol/L Potassium (3.5-5.3) mmol/L Chloride (100-110) mmol/L Carbon Dioxide (21-32) mmol/L BUN (7-18) mg/dL Creatinine (0.55-1.02) mg/dL Est Cr Clr Drug Dosing mL/min Estimated GFR (MDRD) (>60) BUN/Creatinine Ratio (9-20) Glucose (80-116) mg/dL Calcium (8.6-10.2) mg/dL Magnesium 2.0 (1.8-2.5) mg/dL Total Bilirubin (0.1-1.3) mg/dL AST (5-25) IU/L ALT (12-36) U/L Alkaline Phosphatase (56-112) IU/L Troponin I (<0.017-0.056) ng/mL C-Reactive Protein (0.5-0.9) mg/dL Total Protein (6.0-8.0) g/dL Albumin (3.2-4.6) g/dL Globulin g/dL Albumin/Globulin Ratio Urine Color Yellow (YELLOW) Urine Appearance Slightly cloudy (CLEAR) Urine pH 5.0 (5.0-6.5) Ur Specific [place] 1.020 (1.010-1.025) Urine Protein 30 H (NEGATIVE) mg/dL Urine Glucose (UA) Normal (NORMAL) mg/dL Urine Ketones 15 H (NEGATIVE) mg/dL Urine Occult Blood Negative (NEGATIVE) Urine Nitrite Negative (NEGATIVE) Urine Bilirubin Small H (NEGATIVE) Urine Urobilinogen 1 H (NEGATIVE) mg/dL Ur Leukocyte Esterase Moderate H (NEGATIVE) Urine WBC 5-10 H (0-5) Ur Squamous Epith Cells Few H (NS,R,O) Calcium Oxalate Crystal Few H (NS) Urine Bacteria Moderate H (NS) Meds: Medications Generic Name Dose Route Start Last Admin Trade Name Freq PRN Reason Stop Dose Admin Sodium Chloride 1,000 mls @ 999 mls/hr 05/18/19 14:15 05/18/19 14:51 Normal Saline IV 05/22/19 14:11 125 mls/hr ASDIRECTED DIVYA Infusion Ceftriaxone Sodium 1 gm/ 50 mls @ 200 mls/hr 05/18/19 15:00 05/18/19 15:31 Sodium Chloride IV 200 mls/hr Q24H DIVYA Administration Sodium Chloride 10 ml 05/18/19 13:01 05/18/19 13:42 Saline Flush FLUSH 10 ml ASDIRECTED PRN Administration Keep Vein Open Discontinued Medications Generic Name Dose Route Start Last Admin Trade Name Freq PRN Reason Stop Dose Admin Acetaminophen 1,000 mg 05/18/19 14:31 05/18/19 14:42 Tylenol Extra Strength PO 05/18/19 14:32 1,000 mg ONETIME ONE Administration Iopamidol 80 ml 05/18/19 14:49 05/18/19 15:12 [id number] (76%) IV 05/18/19 14:50 80 ml . DIRECTED ONE Administration - Radiology Interpretation Free Text/Narrative:: Chest x-ray PA and lateral shows some haziness in the left lower lung dowling which could be superimposed skin tissue. CTA of her chest showed no evidence of pulmonary emboli. However, she did have a 6 cm spiculated mass in her left lower lung and also an 8.3 mm mass in her right breast that was not known well as the mass in her left breast that was already known area this was per the radiologist. - Re-Assessments/Exams Free Text/Narrative Re-Assessment/Exam: 05/18/19 14:30: The patient has evidence of a urinary tract infection. She has had rapidly progressive weakness to the point of where she cannot ambulate without extreme assistance and would not be safe for discharge at this point secondary to this weakness and the risk for falls with related significant injury, morbidity and even mortality. Therefore the patient will need admission for IV antibiotics, IV fluids and for assistance with ambulation and improving strength. She also is having some left chest pain which could be musculoskeletal but with her subtherapeutic INR, I am concerned that she could have a recurrent PE and I will do a CTA of her chest to rule this in or out. The patient will be appropriate for admission here at [facility] and I will discuss patient's case with Dr. Garcia. 05/18/19 14:35: I discussed the patient's case with Dr. Garcia. He will see the patient on the floor and admit her. He has asked me to place the patient as an observation status for now. I am awaiting the results of the CTA of her chest but she will have blood cultures 2 performed and then will be placed on Rocephin 1 g IV. I have given the patient normal saline 500 mL as a bolus and will continue at a rate of 150 mL per hour. 05/18/19 15:55: Patient had already been transferred to the floor. The radiologist called to give me the report on the CT scan. I called Dr. Garcia and laid this information to him as well. Dr. Gary would like to see the patient in his clinic on Tuesday if she is out of the hospital by that time. Departure - Departure Time of Disposition: 15:30 Disposition: Refer to Observation Condition: Fair (Stable) Clinical Impression: Rapidly progressive weakness, Unable to ambulate, Mass of left lung, Breast mass, right UTI (urinary tract infection) Qualifiers: Urinary tract infection type: site unspecified Hematuria presence: without hematuria Qualified Code(s): N39.0 - Urinary tract infection, site not specified - Discharge Information - My Orders Last 24 Hours: My Active Orders 05/18/19 13:01 Sodium Chloride 0.9% [Saline Flush] 10 ml FLUSH ASDIRECTED PRN Peripheral IV Insertion Adult [OM.PC] Routine EKG 12 Lead [EK] Routine 05/18/19 13:02 EKG Documentation Completion [RC] ASDIRECTED 05/18/19 13:34 CULTURE URINE [RM] Stat 05/18/19 14:15 Sodium Chloride 0.9% [Normal Saline] 1,000 ml IV ASDIRECTED 05/18/19 14:29 Orthostatic Vital Signs [RC] ASDIRECTED 05/18/19 14:30 Ang Chest [CT] Stat - Assessment/Plan Last 24 Hours: My Active Orders 05/18/19 13:01 Sodium Chloride 0.9% [Saline Flush] 10 ml FLUSH ASDIRECTED PRN Peripheral IV Insertion Adult [OM.PC] Routine EKG 12 Lead [EK] Routine 05/18/19 13:02 EKG Documentation Completion [RC] ASDIRECTED 05/18/19 13:34 CULTURE URINE [RM] Stat 05/18/19 14:15 Sodium Chloride 0.9% [Normal Saline] 1,000 ml IV ASDIRECTED 05/18/19 14:29 Orthostatic Vital Signs [RC] ASDIRECTED 05/18/19 14:30 Ang Chest [CT] Stat
[2019-05-18] MEDS: Sodium Chloride 0.9% 10 ML Syringe FLUSH PRN (13:42)
[2019-05-18] MEDS: Sodium Chloride 0.9% 1,000 ML IV SCH ×2 (14:17→18:46)
[2019-05-18] MEDS ORDERED: Acetaminophen 500 MG Tab PO ONE (14:31)
[2019-05-18] MEDS ORDERED: Iopamidol 755 Mg/ML 100 ML Bottle IV ONE (14:49)
[2019-05-18] MEDS ORDERED: cefTRIAXone 1 GM in Sodium Chloride 0.9% 50 ML IV SCH (15:00)
--- NOTE | 2019-05-18 15:03 | CR ---
INDICATION: Weakness, reported low oxygen saturation, pain. CHEST: AP and lateral views of the chest, 05/18/19, were compared with and 05/22/14, revealing what appears to be relatively poor inspiration. Evidence of exogenous obesity is again noted. The heart appears prominent in size but is not grossly enlarged, allowing for the AP positioning. It may be at the upper limits of normal in size. There is some calcification in the arch of the aorta, which is somewhat tortuous. Elevated right hemidiaphragm is again noted, likely at least partly anatomic. A definite active infiltrate or effusion was not identified, although there does appear to be some minimal blunting of the posterior sulcus on the right, raising question of very minimal pleural effusion. It is also difficult to entirely exclude patchy pneumonia at the left lung base with an appearance of somewhat heavy markings in that area emphasized by the poor inspiration. Bony structures appear to be grossly intact. IMPRESSION: 1. Difficult to exclude patchy bronchopneumonia at the left lower lobe. Minimal pleural effusion on the right is difficult to exclude with blunting of the posterior sulcus. 2. Probable ASHD. 3. Exogenous obesity. MTDD
--- NOTE | 2019-05-18 16:58 | PCM.HP.2 ---
H&P History of Present Illness - General Date of Service: 05/18/19 Admit Problem/Dx: Admission Diagnosis/Problem Admission Diagnosis/Problem Urinary tract infection Source of Information: Patient, Other (ER doc) History Limitations: Reports: No Limitations - History of Present Illness Initial Comments - Free Text/Narative: This is a 73-year-old female patient today stated she couldn't get out of bed when shaky. She states that's happened to her before and she waits a while and then she usually recovers. Today she didn't get better so she called ambulance was brought in the hospital. She has some white cells in her urine after full investigation and dehydrated. She had a CT of her chest and it was reported as a lung mass and left breast mass she's been having some pain on the left chest area.She has a history of left breast mass and a right breast masses following the CT scan. She denies shortness of breath, runny nose, sore throat, diarrhea, nausea, vomiting, acute urinary frequency, hematuria. She says she's had a little fever but no chills. When she came in initially she had no dysuria but now she says she does. Patient has a history of a right breast mass that she was going to have an operation next week. Ambulance report her O2 sats was 80% but when she gets to the emergency room is 97% on room air. She does wear oxygen at night. Left lower rib Pain Score (Numeric/FACES): 2 - Related Data Allergies/Adverse Reactions: Allergies Allergy/AdvReac Type Severity Reaction Status Date / Time Sulfa (Sulfonamide Allergy Rash Verified 05/18/19 12:56 Antibiotics) Home Medications: Home Meds Benztropine [Cogentin] 1 mg PO BID@,05/09/14 [History] Cholecalciferol (Vitamin D3) [Vitamin D3] 1,000 unit PO QAM 05/09/14 [History] Escitalopram [Lexapro] 10 mg PO QAM 05/09/14 [History] Omeprazole [Prilosec] 20 mg PO BID@,05/09/14 [History] atorvaSTATin Calcium [Atorvastatin Calcium] 20 mg PO DAILY@199905/09/14 [ History] lamoTRIgine [Lamictal] 100 mg PO QAM 08/28/14 [History] Acetaminophen 500 mg PO QID PRN 10/29/14 [History] Gabapentin 900 mg PO TID@,,10/29/14 [History] Warfarin [Coumadin] 2.5 mg PO SUTUWETHSA@1500 10/30/14 [History] Warfarin [Coumadin] 5 mg PO MOFR@1500 04/29/15 [History] Diclofenac Sodium [Voltaren] 4 gm TOP BID 06/05/18 [History] Emollient [Vanicream] 1 applic TOP DAILY@0600 PRN 06/05/18 [History] Ferrous Sulfate 325 mg PO QAM 06/05/18 [History] Fluticasone Propionate [Flonase] 2 spray NASBOTH DAILY@0606/05/18 [History] SUMAtriptan Succinate [Imitrex] 50 mg PO ASDIRECTED 06/05/18 [History] rOPINIRole HCl [Requip Xl] 4 mg PO DAILY@199906/05/18 [History] Multivitamin [Daily Gilmar] 1 tab PO QAM 08/23/18 [History] risperiDONE Microspheres [RisperiDAL Consta] 25 mg IM Q14D 08/23/18 [History] Albuterol [Ventolin HFA] 2 puff IH Q6H PRN 05/18/19 [History] Aspirin [Halfprin] 81 mg PO QAM 05/18/19 [History] Betamethasone Dipropionate [Diprolene 0.05% Lotion] 1 applic TP BID PRN [History] Calcium Citrate 600mg 300 mg PO BID@05/18/19 [History] Clobetasol [Clobetasol Propionate 0.05%] 1 applic TOP BID PRN 05/18/19 [History] Dextran 70/Hypromellose [Artificial Tears] 1 drop EYEBOTH DAILY PRN 05/18/19 [ History] Ketotifen Fumarate [Zaditor] 1 drop EYEBOTH DAILY PRN 05/18/19 [History] Magnesium 250 mg PO BID@,05/18/19 [History] Nystatin [Nystatin Crm] 1 applic TOP BID PRN 05/18/19 [History] Verapamil HCl [Verapamil ER] 120 mg PO QAM 05/18/19 [History] Past Medical History HEENT History: Reports: Cataract Cardiovascular History: Reports: Afib, Blood Clots/VTE/DVT, Heart Murmur, High Cholesterol, Hypertension, SOB on Exertion Respiratory History: Reports: PE, Pneumothorax, SOB, Other (See Below) Other Respiratory History: HYPOXIA, uses O2 @ 2L/NC @ hs. 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: Other (See Below) Other OB/BYN History: ABNORMAL PAP, Musculoskeletal History: Reports: Arthritis, Back Pain, Chronic, Fracture, Osteoarthritis Other Musculoskeletal History: hx R fx collarbone with surgery Neurological History: Reports: None, Concussion, CVA, Headaches, Chronic, Head Trauma, Migraines Other Neuro History: CVA x 2 Psychiatric History: Reports: Anxiety, Bipolar, Depression, Panic Attack, Schizophrenia, Suicide Attempt, Other (See Below) Other Psychiatric History: PARANOIA Endocrine/Metabolic History: Reports: Obesity/BMI 30+ Hematologic History: Reports: Anemia, Anticoagulation Therapy, Blood Transfusion (s) Immunologic History: Reports: None Oncologic (Cancer) History: Reports: Breast Dermatologic History: Reports: None - Infectious Disease History Infectious Disease History: Reports: Chicken Pox, Mumps - Past Surgical History HEENT Surgical History: Reports: Adenoidectomy, Cataract Surgery, Tonsillectomy Other HEENT Surgeries/Procedures: bilat cataract Respiratory Surgical History: Reports: Other (See Below) Other Respiratory Surgeries/Procedures: lung surgery following suicide attempt in past GI Surgical History: Reports: Cholecystectomy, Colonoscopy, EGD Female Surgical History: Reports: Breast Biopsy Neurological Surgical History: Reports: Other (See Below) Other Neurological Surgeries/Procedures: BACK INJECTIONS Musculoskeletal Surgical History: Reports: Arthroscopic Knee (Right knee), Arthroscopic Procedure, Other (See Below) Other Musculoskeletal Surgeries/Procedures:: RCLAVICAL SURGERY Social & Family History - Family History Family Medical History: Unobtainable - Tobacco Use Smoking Status *Q: Former Smoker (Quit 3 years ago.) Years of Tobacco use: 3 Used Tobacco, but Quit: Yes Month/Year Tobacco Last Used: 2015 Second Hand Smoke Exposure: No - Caffeine Use Caffeine Use: Reports: Coffee Other Caffeine Use: 3 cups a day, a can of soda everyday - Recreational Drug Use Recreational Drug Use: No - Living Situation & Occupation Occupation: Retired H&P Review of Systems - Review of Systems: Review Of Systems: See Below General: Reports: Fever, Weakness HEENT: Reports: No Symptoms Pulmonary: Reports: No Symptoms Cardiovascular: Reports: No Symptoms Gastrointestinal: Reports: No Symptoms Genitourinary: Reports: Dysuria Musculoskeletal: Reports: Other (Left rib pain) Skin: Reports: No Symptoms Psychiatric: Reports: No Symptoms Neurological: Reports: No Symptoms Hematologic/Lymphatic: Reports: No Symptoms Immunologic: Reports: No Symptoms Exam - Exam Exam: See Below - Vital Signs Vital Signs: Last Vital Signs Temp 98 F 05/18/19 16:00 Pulse 80 05/18/19 16:00 Resp 18 05/18/19 16:00 BP 106/69 05/18/19 16:00 Pulse Ox 96 05/18/19 16:00 Orthostatic Blood Pressure [ 124/76 Standing] Orthostatic Blood Pressure [ 136/67 Sitting] Orthostatic Blood Pressure [ 139/67 Supine] Weight: 231 lb - Exam General: Alert, Oriented, Cooperative HEENT: Hearing Intact, Posterior Pharynx Clear, TMs Clear Neck: Supple, Trachea Midline. No: Carotid Bruit, JVD Lungs: Clear to Auscultation, Normal Respiratory Effort. No: Crackles, Rales, Rhonchi Cardiovascular: Regular Rate, Regular Rhythm. No: Systolic Murmur GI/Abdominal Exam: Normal Bowel Sounds, Soft, Non-Tender, No Organomegaly, No Distention, No Abnormal Bruit, No Mass Back Exam: Normal Inspection, Full Range of Motion. No: Vertebral Tenderness Skin: Warm, Dry, Intact Neurological: Normal Speech, Normal Tone Psychiatric: Alert, Normal Affect, Normal Mood - Patient Data Lab Results Last 24 hrs: Laboratory Results - last 24 hr 05/18/19 05/18/19 05/18/19 Range/Units 13:15 13:15 13:15 WBC 12.2 H (4.5-12.0) X10-3/uL RBC 4.26 (3.23-5.20) x10(6)uL Hgb 12.8 (11.5-15.5) g/dL Hct 38.7 (30.0-51.3) % MCV 90.8 (80-96) fL MCH 30.0 (27.7-33.6) pg MCHC 33.0 (32.2-35.4) g/dL RDW 14.0 (11.5-15.5) % Plt Count 374 H (125-369) X10(3)uL MPV 8.1 (7.4-10.4) fL Add Manual Diff Yes Neutrophils % (Manual) 89 H (46-82) % Lymphocytes % (Manual) 7 L (13-37) % Monocytes % (Manual) 4 (4-12) % PT (8.7-11.1) INR (0.89-1.13) Sodium 138 (135-145) mmol/L Potassium 4.7 (3.5-5.3) mmol/L Chloride 100 D (100-110) mmol/L Carbon Dioxide 33 H (21-32) mmol/L BUN 21 H (7-18) mg/dL Creatinine 1.0 (0.55-1.02) mg/dL Est Cr Clr Drug Dosing 38.94 mL/min Estimated GFR (MDRD) 55 L (>60) BUN/Creatinine Ratio 21.0 H (9-20) Glucose 123 H (80-116) mg/dL Calcium 10.1 (8.6-10.2) mg/dL Magnesium (1.8-2.5) mg/dL Total Bilirubin 0.3 (0.1-1.3) mg/dL AST 11 D (5-25) IU/L ALT 22 D (12-36) U/L Alkaline Phosphatase 116 H (56-112) IU/L Troponin I < 0.017 L (<0.017-0.056) ng/mL C-Reactive Protein 11.9 H* (0.5-0.9) mg/dL Total Protein 7.6 (6.0-8.0) g/dL Albumin 3.0 L (3.2-4.6) g/dL Globulin 4.6 g/dL Albumin/Globulin Ratio 0.7 Urine Color (YELLOW) Urine Appearance (CLEAR) Urine pH (5.0-6.5) Ur Specific [place] (1.010-1.025) Urine Protein (NEGATIVE) mg/dL Urine Glucose (UA) (NORMAL) mg/dL Urine Ketones (NEGATIVE) mg/dL Urine Occult Blood (NEGATIVE) Urine Nitrite (NEGATIVE) Urine Bilirubin (NEGATIVE) Urine Urobilinogen (NEGATIVE) mg/dL Ur Leukocyte Esterase (NEGATIVE) Urine WBC (0-5) Ur Squamous Epith Cells (NS,R,O) Calcium Oxalate Crystal (NS) Urine Bacteria (NS) 05/18/19 05/18/19 05/18/19 Range/Units 13:15 13:15 13:34 WBC (4.5-12.0) X10-3/uL RBC (3.23-5.20) x10(6)uL Hgb (11.5-15.5) g/dL Hct (30.0-51.3) % MCV (80-96) fL MCH (27.7-33.6) pg MCHC (32.2-35.4) g/dL RDW (11.5-15.5) % Plt Count (125-369) X10(3)uL MPV (7.4-10.4) fL Add Manual Diff Neutrophils % (Manual) (46-82) % Lymphocytes % (Manual) (13-37) % Monocytes % (Manual) (4-12) % PT 15.7 H (8.7-11.1) INR 1.63 H (0.89-1.13) Sodium (135-145) mmol/L Potassium (3.5-5.3) mmol/L Chloride (100-110) mmol/L Carbon Dioxide (21-32) mmol/L BUN (7-18) mg/dL Creatinine (0.55-1.02) mg/dL Est Cr Clr Drug Dosing mL/min Estimated GFR (MDRD) (>60) BUN/Creatinine Ratio (9-20) Glucose (80-116) mg/dL Calcium (8.6-10.2) mg/dL Magnesium 2.0 (1.8-2.5) mg/dL Total Bilirubin (0.1-1.3) mg/dL AST (5-25) IU/L ALT (12-36) U/L Alkaline Phosphatase (56-112) IU/L Troponin I (<0.017-0.056) ng/mL C-Reactive Protein (0.5-0.9) mg/dL Total Protein (6.0-8.0) g/dL Albumin (3.2-4.6) g/dL Globulin g/dL Albumin/Globulin Ratio Urine Color Yellow (YELLOW) Urine Appearance Slightly cloudy (CLEAR) Urine pH 5.0 (5.0-6.5) Ur Specific [place] 1.020 (1.010-1.025) Urine Protein 30 H (NEGATIVE) mg/dL Urine Glucose (UA) Normal (NORMAL) mg/dL Urine Ketones 15 H (NEGATIVE) mg/dL Urine Occult Blood Negative (NEGATIVE) Urine Nitrite Negative (NEGATIVE) Urine Bilirubin Small H (NEGATIVE) Urine Urobilinogen 1 H (NEGATIVE) mg/dL Ur Leukocyte Esterase Moderate H (NEGATIVE) Urine WBC 5-10 H (0-5) Ur Squamous Epith Cells Few H (NS,R,O) Calcium Oxalate Crystal Few H (NS) Urine Bacteria Moderate H (NS) Result Diagrams: 05/18/19 13:15 05/18/19 13:15 - Problem List (1) Mass of left breast SNOMED Code(s): 40763779 ICD Code: N63.20 - UNSPECIFIED LUMP IN THE LEFT BREAST, UNSPECIFIED QUADRANT Status: Acute Current Visit: Yes (2) Breast mass, right SNOMED Code(s): 65156144 ICD Code: N63.10 - UNSPECIFIED LUMP IN THE RIGHT BREAST, UNSPECIFIED QUADRANT Status: Acute Current Visit: Yes (3) Mass of left lung SNOMED Code(s): 061492942 ICD Code: R91.8 - OTHER NONSPECIFIC ABNORMAL FINDING OF LUNG FIELD Status: Acute Current Visit: Yes (4) UTI (urinary tract infection) SNOMED Code(s): 76104293 ICD Code: N39.0 - URINARY TRACT INFECTION, SITE NOT SPECIFIED Status: Acute Current Visit: Yes Qualifiers: Urinary tract infection type: site unspecified Hematuria presence: without hematuria Qualified Code(s): N39.0 - Urinary tract infection, site not specified (5) Unable to ambulate SNOMED Code(s): 986631688 ICD Code: R26.2 - DIFFICULTY IN WALKING, NOT ELSEWHERE CLASSIFIED Status: Acute Current Visit: Yes (6) Palliative care status SNOMED Code(s): 900153815 ICD Code: Z51.5 - ENCOUNTER FOR PALLIATIVE CARE Status: Acute Current Visit: No (7) Dehydration SNOMED Code(s): 05167645 ICD Code: E86.0 - DEHYDRATION Status: Acute Current Visit: Yes Problem List Initiated/Reviewed/Updated: Yes Orders Last 24hrs: Active Orders 24 hr Category Date Time Status Admission Status [Patient Status] [ADT] Routine ADT 05/18/19 14:42 Active EKG Documentation Completion [RC] ASDIRECTED Care 05/18/19 13:02 Active Orthostatic Vital Signs [RC] ASDIRECTED Care 05/18/19 14:29 Active Ang Chest [CT] Stat Exams 05/18/19 14:30 Taken CULTURE BLOOD [BC] Urgent Lab 05/18/19 15:30 Received CULTURE BLOOD [BC] Urgent Lab 05/18/19 15:35 Received CULTURE URINE [RM] Stat Lab 05/18/19 13:34 Received Sodium Chloride 0.9% [Normal Saline] 1,000 ml Med 05/18/19 14:15 Active IV ASDIRECTED Sodium Chloride 0.9% [Saline Flush] Med 05/18/19 13:01 Active 10 ml FLUSH ASDIRECTED PRN cefTRIAXone [Rocephin] 1 gm Med 05/18/19 15:00 Active Sodium Chloride 0.9% [Normal Saline] 50 ml IV Q24H Blood Culture x2 Reflex Set [OM.PC] Urgent Oth 05/18/19 14:50 Ordered Peripheral IV Insertion Adult [OM.PC] Routine Oth 05/18/19 13:01 Ordered EKG 12 Lead [EK] Routine Ther 05/18/19 13:01 Ordered Medication Orders Sodium Chloride (Normal Saline) 1,000 mls @ 999 mls/hr IV ASDIRECTED DIVYA Stop: 05/22/19 14:11 Last Infusion: 05/18/19 14:51 Dose: 125 mls/hr Admin: 05/18/19 14:17 Dose: 999 mls/hr Ceftriaxone Sodium 1 gm/ (Sodium Chloride) 50 mls @ 200 mls/hr IV Q24H DIVYA Last Admin: 05/18/19 15:31 Dose: 200 mls/hr Sodium Chloride (Saline Flush) 10 ml FLUSH ASDIRECTED PRN PRN Reason: Keep Vein Open Last Admin: 05/18/19 13:42 Dose: 10 ml Assessment/Plan Comment:: 1. Admit for observation. 2. IV fluids 3. Rocephin 1 g every 24 hours for UTI. 4. Urine culture 5. Patient is off her Coumadin due to her upcoming surgery. I talk to the surgeon will reassess that. We'll put her back on her Coumadin. 6. Patient is full code. 7. Regular diet 8. Up with assist 9. Restart regular medications.
[2019-05-18] MEDS ORDERED: BETAMETHASONE DIPROPIONATE 0.05% TP PRN (17:00)
[2019-05-18] MEDS ORDERED: HYPROMELLOSE EYEBOTH PRN (17:00)
[2019-05-18] MEDS ORDERED: Albuterol 8 GM Inhaler **OWN MED INH PRN (17:00)
[2019-05-18] MEDS ORDERED: NYSTATIN TOP PRN (17:00)
[2019-05-18] MEDS ORDERED: KETOTIFEN 0.025% EYEBOTH PRN (17:00)
[2019-05-18] MEDS ORDERED: SUMATRIPTAN SUCCINATE 50 MG PO SCH (17:00)
[2019-05-18] MEDS ORDERED: CLOBETASOL 0.05% TOP PRN (17:00)
[2019-05-18] MEDS ORDERED: DEXTRAN EYEBOTH PRN (17:00)
[2019-05-18] MEDS ORDERED: Non-Formulary Medication 1 Each (Magnesium [Magnesium] 250 MG) PO SCH (20:00)
[2019-05-18] MEDS: Gabapentin 300 MG Cap PO SCH (20:46)
[2019-05-18] MEDS: ATORVASTATIN 40 MG PO SCH (20:48)
[2019-05-18] MEDS: OMEPRAZOLE 20 MG PO SCH (20:49)
[2019-05-18] MEDS: ROPINIROLE HCL 4 MG PO SCH (20:50)
[2019-05-18] MEDS: DICLOFENAC SODIUM 1% TOP SCH (21:55)
[2019-05-19] MEDS ORDERED: hydrOXYzine HCl 25 MG Tab PO PRN (01:29)
[2019-05-19] MEDS: Sodium Chloride 0.9% 1,000 ML IV SCH (05:15)
[2019-05-19] MEDS: VERAPAMIL 120 MG PO SCH (05:16)
[2019-05-19] MEDS: Ferrous Sulfate 325 MG Tab **OWN MED PO SCH (05:18)
[2019-05-19] MEDS: BENZTROPINE 1 MG PO SCH ×2 (05:18→15:12)
[2019-05-19] MEDS: Fluticasone Propionate Nasal Spray 16 GM Bottle **OWN MED NASBOTH SCH (05:19)
[2019-05-19] MEDS: Aspirin 81 MG Tab.EC **OWN MED PO SCH (05:20)
[2019-05-19] MEDS: LAMOTRIGINE 100 MG PO SCH (05:20)
[2019-05-19] MEDS: ESCITALOPRAM 10 MG PO SCH (05:21)
[2019-05-19] MEDS: OMEPRAZOLE 20 MG PO SCH ×2 (05:21→20:38)
[2019-05-19] MEDS: Cholecalciferol (Vitamin D3) 25 MCG Tab **OWN MED PO SCH (05:22)
[2019-05-19] MEDS: Gabapentin 300 MG Cap PO SCH ×3 (05:36→20:36)
[2019-05-19] MEDS: MULTIVITAMIN PO SCH (05:37)
[2019-05-19] MEDS ORDERED: Emollient 454 GM Jar TOP PRN (06:00)
[2019-05-19] MEDS: Acetaminophen 500 MG Tab **OWN MED PO PRN ×2 (06:38→14:07)
--- NOTE | 2019-05-19 08:44 | PCM.PN ---
- General Info Date of Service: 05/19/19 Admission Dx/Problem (Free Text): Patient states she feels stronger today. She's had no shaking or fevers or dysuria. The nurses report she is a 2 person assist at this time. She denies diarrhea, nausea vomiting. She has a little bit of a cough and no shortness of breath - Patient Data Vitals - Most Recent: Last Vital Signs Temp 98.3 F 05/18/19 20:40 Pulse 71 05/19/19 05:39 Resp 18 05/19/19 05:39 BP 145/70 H 05/19/19 05:39 Pulse Ox 94 L 05/19/19 05:39 Orthostatic Blood Pressure [ 159/71 Standing] Orthostatic Blood Pressure [ 154/77 Sitting] Orthostatic Blood Pressure [ 145/70 Supine] Weight - Most Recent: 231 lb I&O - Last 24 Hours: Intake & Output 05/18/19 05/19/19 05/19/19 22:59 06:59 14:59 Intake Total 1315 576 Output Total 825 150 Balance 490 426 Lab Results Last 24 Hours: Laboratory Results - last 24 hr 05/18/19 05/18/19 05/18/19 Range/Units 13:15 13:15 13:15 WBC 12.2 H (4.5-12.0) X10-3/uL RBC 4.26 (3.23-5.20) x10(6)uL Hgb 12.8 (11.5-15.5) g/dL Hct 38.7 (30.0-51.3) % MCV 90.8 (80-96) fL MCH 30.0 (27.7-33.6) pg MCHC 33.0 (32.2-35.4) g/dL RDW 14.0 (11.5-15.5) % Plt Count 374 H (125-369) X10(3)uL MPV 8.1 (7.4-10.4) fL Add Manual Diff Yes Neutrophils % (Manual) 89 H (46-82) % Band Neutrophils % (0-6) % Lymphocytes % (Manual) 7 L (13-37) % Monocytes % (Manual) 4 (4-12) % Eosinophils % (Manual) (0-5) % PT (8.7-11.1) INR (0.89-1.13) Sodium 138 (135-145) mmol/L Potassium 4.7 (3.5-5.3) mmol/L Chloride 100 D (100-110) mmol/L Carbon Dioxide 33 H (21-32) mmol/L BUN 21 H (7-18) mg/dL Creatinine 1.0 (0.55-1.02) mg/dL Est Cr Clr Drug Dosing 38.94 mL/min Estimated GFR (MDRD) 55 L (>60) BUN/Creatinine Ratio 21.0 H (9-20) Glucose 123 H (80-116) mg/dL Calcium 10.1 (8.6-10.2) mg/dL Magnesium (1.8-2.5) mg/dL Total Bilirubin 0.3 (0.1-1.3) mg/dL AST 11 D (5-25) IU/L ALT 22 D (12-36) U/L Alkaline Phosphatase 116 H (56-112) IU/L Troponin I < 0.017 L (<0.017-0.056) ng/mL C-Reactive Protein 11.9 H* (0.5-0.9) mg/dL Total Protein 7.6 (6.0-8.0) g/dL Albumin 3.0 L (3.2-4.6) g/dL Globulin 4.6 g/dL Albumin/Globulin Ratio 0.7 Urine Color (YELLOW) Urine Appearance (CLEAR) Urine pH (5.0-6.5) Ur Specific [place] (1.010-1.025) Urine Protein (NEGATIVE) mg/dL Urine Glucose (UA) (NORMAL) mg/dL Urine Ketones (NEGATIVE) mg/dL Urine Occult Blood (NEGATIVE) Urine Nitrite (NEGATIVE) Urine Bilirubin (NEGATIVE) Urine Urobilinogen (NEGATIVE) mg/dL Ur Leukocyte Esterase (NEGATIVE) Urine WBC (0-5) Ur Squamous Epith Cells (NS,R,O) Calcium Oxalate Crystal (NS) Urine Bacteria (NS) 05/18/19 05/18/19 05/18/19 Range/Units 13:15 13:15 13:34 WBC (4.5-12.0) X10-3/uL RBC (3.23-5.20) x10(6)uL Hgb (11.5-15.5) g/dL Hct (30.0-51.3) % MCV (80-96) fL MCH (27.7-33.6) pg MCHC (32.2-35.4) g/dL RDW (11.5-15.5) % Plt Count (125-369) X10(3)uL MPV (7.4-10.4) fL Add Manual Diff Neutrophils % (Manual) (46-82) % Band Neutrophils % (0-6) % Lymphocytes % (Manual) (13-37) % Monocytes % (Manual) (4-12) % Eosinophils % (Manual) (0-5) % PT 15.7 H (8.7-11.1) INR 1.63 H (0.89-1.13) Sodium (135-145) mmol/L Potassium (3.5-5.3) mmol/L Chloride (100-110) mmol/L Carbon Dioxide (21-32) mmol/L BUN (7-18) mg/dL Creatinine (0.55-1.02) mg/dL Est Cr Clr Drug Dosing mL/min Estimated GFR (MDRD) (>60) BUN/Creatinine Ratio (9-20) Glucose (80-116) mg/dL Calcium (8.6-10.2) mg/dL Magnesium 2.0 (1.8-2.5) mg/dL Total Bilirubin (0.1-1.3) mg/dL AST (5-25) IU/L ALT (12-36) U/L Alkaline Phosphatase (56-112) IU/L Troponin I (<0.017-0.056) ng/mL C-Reactive Protein (0.5-0.9) mg/dL Total Protein (6.0-8.0) g/dL Albumin (3.2-4.6) g/dL Globulin g/dL Albumin/Globulin Ratio Urine Color Yellow (YELLOW) Urine Appearance Slightly cloudy (CLEAR) Urine pH 5.0 (5.0-6.5) Ur Specific [place] 1.020 (1.010-1.025) Urine Protein 30 H (NEGATIVE) mg/dL Urine Glucose (UA) Normal (NORMAL) mg/dL Urine Ketones 15 H (NEGATIVE) mg/dL Urine Occult Blood Negative (NEGATIVE) Urine Nitrite Negative (NEGATIVE) Urine Bilirubin Small H (NEGATIVE) Urine Urobilinogen 1 H (NEGATIVE) mg/dL Ur Leukocyte Esterase Moderate H (NEGATIVE) Urine WBC 5-10 H (0-5) Ur Squamous Epith Cells Few H (NS,R,O) Calcium Oxalate Crystal Few H (NS) Urine Bacteria Moderate H (NS) 05/19/19 05/19/19 05/19/19 Range/Units 06:10 06:10 06:10 WBC 11.3 (4.5-12.0) X10-3/uL RBC 3.84 (3.23-5.20) x10(6)uL Hgb 11.8 (11.5-15.5) g/dL Hct 34.6 (30.0-51.3) % MCV 90.2 (80-96) fL MCH 30.8 (27.7-33.6) pg MCHC 34.1 (32.2-35.4) g/dL RDW 13.6 (11.5-15.5) % Plt Count 303 (125-369) X10(3)uL MPV 8.2 (7.4-10.4) fL Add Manual Diff Yes Neutrophils % (Manual) 79 (46-82) % Band Neutrophils % 1 (0-6) % Lymphocytes % (Manual) 9 L (13-37) % Monocytes % (Manual) 9 (4-12) % Eosinophils % (Manual) 2 (0-5) % PT 15.0 H (8.7-11.1) INR 1.56 H (0.89-1.13) Sodium 140 (135-145) mmol/L Potassium 4.1 (3.5-5.3) mmol/L Chloride 105 D (100-110) mmol/L Carbon Dioxide 31 (21-32) mmol/L BUN 16 (7-18) mg/dL Creatinine 0.8 (0.55-1.02) mg/dL Est Cr Clr Drug Dosing 48.67 mL/min Estimated GFR (MDRD) > 60 (>60) BUN/Creatinine Ratio 20.0 (9-20) Glucose 113 (80-116) mg/dL Calcium 8.9 (8.6-10.2) mg/dL Magnesium (1.8-2.5) mg/dL Total Bilirubin (0.1-1.3) mg/dL AST (5-25) IU/L ALT (12-36) U/L Alkaline Phosphatase (56-112) IU/L Troponin I (<0.017-0.056) ng/mL C-Reactive Protein (0.5-0.9) mg/dL Total Protein (6.0-8.0) g/dL Albumin (3.2-4.6) g/dL Globulin g/dL Albumin/Globulin Ratio Urine Color (YELLOW) Urine Appearance (CLEAR) Urine pH (5.0-6.5) Ur Specific [place] (1.010-1.025) Urine Protein (NEGATIVE) mg/dL Urine Glucose (UA) (NORMAL) mg/dL Urine Ketones (NEGATIVE) mg/dL Urine Occult Blood (NEGATIVE) Urine Nitrite (NEGATIVE) Urine Bilirubin (NEGATIVE) Urine Urobilinogen (NEGATIVE) mg/dL Ur Leukocyte Esterase (NEGATIVE) Urine WBC (0-5) Ur Squamous Epith Cells (NS,R,O) Calcium Oxalate Crystal (NS) Urine Bacteria (NS) Alex Results Last 24 Hours: Microbiology 05/18/19 13:34 Urine Culture - Preliminary Urine, Clean Catch Gram Negative Rods Med Orders - Current: Current Medications Acetaminophen (Tylenol Extra Strength) 500 mg PO QID PRN PRN Reason: HEADACHES Last Admin: 05/19/19 06:38 Dose: 500 mg Albuterol (Ventolin Hfa) 0 gm INH Q6H PRN PRN Reason: Shortness of Breath Aspirin (Halfprin) 81 mg PO QAM [facility] Last Admin: 05/19/19 05:20 Dose: 81 mg Atorvastatin Calcium (Lipitor) 20 mg PO DAILY@1999 [facility] Last Admin: 05/18/19 20:48 Dose: 20 mg Benztropine Mesylate (Cogentin) 1 mg PO BID@, [facility] Last Admin: 05/19/19 05:18 Dose: 1 mg Cholecalciferol (Vitamin D3) 25 mcg PO QAM [facility] Last Admin: 05/19/19 05:22 Dose: 25 mcg Clobetasol Propionate (Temovate 0.05% Oint) 0 gm TOP BID PRN PRN Reason: Rash Diclofenac Sodium (Voltaren 1% Gel) 4 gm TOP BID [facility] Last Admin: 05/18/19 21:55 Dose: Not Given Emollient Ointment (Vanicream) 0 gm TOP DAILY@0600 PRN PRN Reason: Itching Escitalopram [facility]alate ([facility]apro) [facility] Last Admin: 05/19/19 05:21 Dose: 10 mg Ferrous Sulfate (Ferrous Sulfate) 325 mg PO [facility] Last Admin: 05/19/19 05:18 Dose: 325 mg Fluticasone Propionate (Flonase) 0 gm NASBOTH DAILY@0600 [facility] Last Admin: 05/19/19 05:19 Dose: 2 puff Gabapentin (Neurontin) 900 mg PO TID@,,20 [facility] Last Admin: 05/19/19 05:36 Dose: 900 mg Hydroxyzine HCl (Atarax) 25 mg PO BEDTIME PRN PRN Reason: Insomnia Last Admin: 05/19/19 01:49 Dose: 25 mg Ceftriaxone Sodium 1 gm/ (Sodium Chloride) 50 mls @ 200 mls/hr IV Q24H [facility] Last Admin: 05/18/19 15:31 Dose: 200 mls/hr Ketotifen Fumarate (Ketotifen 0.025% Ophth Soln) 0 ml EYEBOTH DAILY PRN PRN Reason: Dry Eyes Lamotrigine (Lamotrigine) 100 mg PO [facility] Last Admin: 05/19/19 05:20 Dose: 100 mg Multivitamins/Minerals/Vitamin C (Tab-A-Gilmar) 1 tab PO [facility] Last Admin: 05/19/19 05:37 Dose: 1 tab Betamethasone Dipropionate ( Diprolene) 0.05% Lotion Own Med 0 applic TP BID PRN PRN Reason: Rash Dextran 70/Hypromellose ( Artificial Tears) Solution Own Med 0 drop EYEBOTH DAILY PRN PRN Reason: Dry Eyes Non-Formulary Medication (Magnesium [Magnesium]) 250 mg PO BID@ [facility] Omeprazole [Prilosec (] 20 MgPt Own) 20 mg PO BID@ [facility] Last Admin: 05/19/19 05:21 Dose: 20 mg Risperidone Microspheres ( Risperidal Consta) 25 Mg Own Med 0 mg IM Q14D [facility] Ropinirole Hcl 4 Mg* (*Pt Own) 4 mg PO DAILY@1999 [facility] Last Admin: 05/18/19 20:50 Dose: 4 mg Non-Formulary Medication (Sumatriptan Succinate [Imitrex]) 50 mg PO ASDIRECTED [facility] Nystatin (Nystatin Crm) 0 gm TOP BID PRN PRN Reason: Rash Sodium Chloride (Saline Flush) 10 ml FLUSH ASDIRECTED PRN PRN Reason: Keep Vein Open Last Admin: 05/18/19 13:42 Dose: 10 ml Verapamil HCl (Calan Sr) 120 mg PO QAM [facility] Last Admin: 05/19/19 05:16 Dose: 120 mg Warfarin Sodium (Coumadin) 2.5 mg PO SUTUWETHSA@1500 [facility] Warfarin Sodium (Coumadin) 5 mg PO MOFR@1500 [facility] Warfarin Sodium (Coumadin Sliding Scale) 10 each PO ONETIME ONE Stop: 05/19/19 16:01 Discontinued Medications Acetaminophen (Tylenol Extra Strength) 1,000 mg PO ONETIME ONE Stop: 05/18/19 14:32 Last Admin: 05/18/19 14:42 Dose: 1,000 mg Sodium Chloride (Normal Saline) 1,000 mls @ 100 mls/hr IV ASDIRECTED [facility] Stop: 05/22/19 14:11 Last Admin: 05/19/19 05:15 Dose: 100 mls/hr Iopamidol (Isovue-370 (76%)) 80 ml IV . DIRECTED ONE Stop: 05/18/19 14:50 Last Admin: 05/18/19 15:12 Dose: 80 ml - Exam General: Alert, Oriented Lungs: Clear to Auscultation, Normal Respiratory Effort Cardiovascular: Regular Rate, Regular Rhythm, No Murmurs Extremities: No Pedal Edema - Problem List & Annotations (1) Mass of left breast SNOMED Code(s): 13961605 Code(s): N63.20 - UNSPECIFIED LUMP IN THE LEFT BREAST, UNSPECIFIED QUADRANT Status: Acute Current Visit: Yes (2) Breast mass, right SNOMED Code(s): 56335755 Code(s): N63.10 - UNSPECIFIED LUMP IN THE RIGHT BREAST, UNSPECIFIED QUADRANT Status: Acute Current Visit: Yes (3) Mass of left lung SNOMED Code(s): 150175151 Code(s): R91.8 - OTHER NONSPECIFIC ABNORMAL FINDING OF LUNG FIELD Status: Acute Current Visit: Yes (4) UTI (urinary tract infection) SNOMED Code(s): 21685410 Code(s): N39.0 - URINARY TRACT INFECTION, SITE NOT SPECIFIED Status: Acute Current Visit: Yes Qualifiers: Urinary tract infection type: site unspecified Hematuria presence: without hematuria Qualified Code(s): N39.0 - Urinary tract infection, site not specified (5) Unable to ambulate SNOMED Code(s): 889092472 Code(s): R26.2 - DIFFICULTY IN WALKING, NOT ELSEWHERE CLASSIFIED Status: Acute Current Visit: Yes (6) Palliative care status SNOMED Code(s): 955957973 Code(s): Z51.5 - ENCOUNTER FOR PALLIATIVE CARE Status: Acute Current Visit: No (7) Dehydration SNOMED Code(s): 96807993 Code(s): E86.0 - DEHYDRATION Status: Acute Current Visit: Yes - Problem List Review Problem List Initiated/Reviewed/Updated: Yes - My Orders Last 24 Hours: My Active Orders 05/18/19 17:00 Acetaminophen [Tylenol Extra Strength] 500 mg PO QID PRN Albuterol [Ventolin HFA] 0 gm INH Q6H PRN Betamethasone Dipropionate [Diprolene 0.05% Lotion] 0 applic TP BID PRN Clobetasol [Temovate 0.05% Oint] 0 gm TOP BID PRN Dextran 70/Hypromellose [Artificial Tears] 0 drop EYEBOTH DAILY PRN Ketotifen [Ketotifen 0.025% Ophth Soln] 0 ml EYEBOTH DAILY PRN Nystatin [Nystatin Crm] 0 gm TOP BID PRN SUMAtriptan Succinate [Imitrex] 50 mg PO ASDIRECTED 05/18/19 17:03 Up With Assistance [RC] ASDIRECTED 05/18/19 17:04 SCD [Sequential Compression Device] [OM.PC] Routine 05/18/19 18:07 Code Status [Resuscitation Status] Routine 05/18/19 20:00 Gabapentin [Neurontin] 900 mg PO TID@,15,20 Magnesium [Magnesium] 250 mg PO BID@, Omeprazole [Prilosec] 20 mg PO BID@,20 atorvaSTATin [Lipitor] 20 mg PO DAILY@1999 rOPINIRole HCl 4 mg PO DAILY@199905/18/19 21:00 Diclofenac Sodium [Voltaren 1% Gel] 4 gm TOP BID 05/19/19 01:29 hydrOXYzine HCl [Atarax] 25 mg PO BEDTIME PRN 05/19/19 06:00 Aspirin [Halfprin] 81 mg PO QAM Benztropine [Cogentin] 1 mg PO BID@,15 Cholecalciferol (Vitamin D3) [Vitamin D3] 25 mcg PO QAM Emollient [Vanicream] 0 gm TOP DAILY@0600 PRN Escitalopram [Lexapro] 10 mg PO QAM Ferrous Sulfate 325 mg PO QAM Fluticasone Propionate [Flonase] 0 gm NASBOTH DAILY@0600 Multivitamins [Tab-A-Gil[place]] 1 tab PO QAM Verapamil [Calan SR] 120 mg PO QAM lamoTRIgine 100 mg PO QAM 05/19/19 08:41 Convert IV to Saline Lock [OM.PC] Routine 05/19/19 15:00 Warfarin [Coumadin] 2.5 mg PO SUTUWETHSA@1500 05/19/19 16:00 Warfarin Sliding Scale [Coumadin Sliding Scale] 10 each PO ONETIME ONE 05/19/19 Breakfast Regular Diet [DIET] 05/20/19 05:11 INR,PT,PROTHROMBIN TIME [COAG] DAILY 05/21/19 05:11 INR,PT,PROTHROMBIN TIME [COAG] DAILY 05/21/19 15:00 Warfarin [Coumadin] 5 mg PO MOFR@1500 05/22/19 05:11 INR,PT,PROTHROMBIN TIME [COAG] DAILY 05/23/19 05:11 INR,PT,PROTHROMBIN TIME [COAG] DAILY 05/24/19 05:11 INR,PT,PROTHROMBIN TIME [COAG] DAILY 05/25/19 05:11 INR,PT,PROTHROMBIN TIME [COAG] DAILY 05/26/19 05:11 INR,PT,PROTHROMBIN TIME [COAG] DAILY 05/29/19 09:00 risperiDONE Microspheres [RisperiDAL Consta] 0 mg IM Q14D - Plan Plan:: 1. DC IV fluids and saline lock IV. 2. 10 mg of Coumadin today and then resume her regular dose schedule tomorrow. 3. Daily INRs. 4. Urine grew gram-negative rods. Wait for culture and sensitivity. 5. Continue Rocephin. 6. Increase activity as tolerated
[2019-05-19] MEDS: Sodium Chloride 0.9% 10 ML Syringe FLUSH PRN ×3 (09:23→20:45)
[2019-05-19] MEDS: DICLOFENAC SODIUM 1% TOP SCH ×2 (10:25→20:39)
[2019-05-19] MEDS: cefTRIAXone 1 GM Vial IV SCH (15:18)
[2019-05-19] MEDS ORDERED: Warfarin Sliding Scale PO ONE (16:00)
[2019-05-19] MEDS ORDERED: Warfarin 5 MG Tab **OWN MED PO ONE (16:00)
[2019-05-19] MEDS: ATORVASTATIN 40 MG PO SCH (20:37)
[2019-05-19] MEDS: ROPINIROLE HCL 4 MG PO SCH (20:38)
[2019-05-20] MEDS: Ferrous Sulfate 325 MG Tab **OWN MED PO SCH (05:09)
[2019-05-20] MEDS: LAMOTRIGINE 100 MG PO SCH (05:09)
[2019-05-20] MEDS: ESCITALOPRAM 10 MG PO SCH (05:10)
[2019-05-20] MEDS: BENZTROPINE 1 MG PO SCH (05:11)
[2019-05-20] MEDS: OMEPRAZOLE 20 MG PO SCH (05:11)
[2019-05-20] MEDS: Fluticasone Propionate Nasal Spray 16 GM Bottle **OWN MED NASBOTH SCH (05:11)
[2019-05-20] MEDS: Aspirin 81 MG Tab.EC **OWN MED PO SCH (05:11)
[2019-05-20] MEDS: MULTIVITAMIN PO SCH (05:12)
[2019-05-20] MEDS: Cholecalciferol (Vitamin D3) 25 MCG Tab **OWN MED PO SCH (05:12)
[2019-05-20] MEDS: VERAPAMIL 120 MG PO SCH (05:13)
[2019-05-20] MEDS: Gabapentin 300 MG Cap PO SCH (05:18)
--- NOTE | 2019-05-20 08:52 | PCM.PN ---
- General Info Date of Service: 05/20/19 Admission Dx/Problem (Free Text): Patient states she's doing well. She still feels a little weak when she walks but she has no fevers, chills, dysuria, pyuria, hematuria chest pain, shortness of breath, back pain. - Patient Data Vitals - Most Recent: Last Vital Signs Temp 97.6 F 05/20/19 05:25 Pulse 88 05/20/19 05:25 Resp 20 05/20/19 05:25 BP 134/70 05/20/19 05:25 Pulse Ox 96 05/20/19 05:25 Orthostatic Blood Pressure [ 159/71 Standing] Orthostatic Blood Pressure [ 154/77 Sitting] Orthostatic Blood Pressure [ 145/70 Supine] Weight - Most Recent: 231 lb I&O - Last 24 Hours: Intake & Output 05/19/19 05/20/19 05/20/19 22:59 06:59 14:59 Output Total 200 300 Balance -200 -300 Lab Results Last 24 Hours: Laboratory Results - last 24 hr 05/20/19 Range/Units 06:15 PT 15.5 H (8.7-11.1) INR 1.61 H (0.89-1.13) Alex Results Last 24 Hours: Microbiology 05/18/19 13:34 Urine Culture - Final Urine, Clean Catch Escherichia Coli 05/18/19 15:30 Aerobic Blood Culture - Preliminary Blood - Venous NO GROWTH AFTER 1 DAY Anaerobic Blood Culture - Preliminary NO GROWTH AFTER 1 DAY 05/18/19 15:35 Aerobic Blood Culture - Preliminary Blood - Venous - Lab Draw NO GROWTH AFTER 1 DAY Anaerobic Blood Culture - Preliminary NO GROWTH AFTER 1 DAY Med Orders - Current: Current Medications Acetaminophen (Tylenol Extra Strength) 500 mg PO QID PRN PRN Reason: HEADACHES Last Admin: 05/19/19 14:07 Dose: 500 mg Albuterol (Ventolin Hfa) 0 gm INH Q6H PRN PRN Reason: Shortness of Breath Aspirin (Halfprin) 81 mg PO QAM [facility] Last Admin: 05/20/19 05:11 Dose: 81 mg Atorvastatin Calcium (Lipitor) 20 mg PO DAILY@1999 [facility] Last Admin: 05/19/19 20:37 Dose: 20 mg Benztropine Mesylate (Cogentin) 1 mg PO BID@ [facility] Last Admin: 05/20/19 05:11 Dose: 1 mg Ceftriaxone Sodium (Rocephin) 1 gm IV Q24H [facility] Last Admin: 05/19/19 15:18 Dose: 1 gm Cholecalciferol (Vitamin D3) 25 mcg PO [facility] Last Admin: 05/20/19 05:12 Dose: 25 mcg Clobetasol Propionate (Temovate 0.05% Oint) 0 gm TOP BID PRN PRN Reason: Rash Diclofenac Sodium (Voltaren 1% Gel) 4 gm TOP BID [facility] Last Admin: 05/19/19 20:39 Dose: Not Given Emollient Ointment (Vanicream) 0 gm TOP DAILY@0600 PRN PRN Reason: Itching Escitalopram Oxalate (Lexapro) 10 mg PO [facility] Last Admin: 05/20/19 05:10 Dose: 10 mg Ferrous Sulfate (Ferrous Sulfate) 325 mg PO [facility] Last Admin: 05/20/19 05:09 Dose: 325 mg Fluticasone Propionate (Flonase) 0 gm NASBOTH DAILY@0600 [facility] Last Admin: 05/20/19 05:11 Dose: 2 puff Gabapentin (Neurontin) 900 mg PO TID@,, [facility] Last Admin: 05/20/19 05:18 Dose: 900 mg Hydroxyzine HCl (Atarax) 25 mg PO BEDTIME PRN PRN Reason: Insomnia Last Admin: 05/19/19 01:49 Dose: 25 mg Ketotifen Fumarate (Ketotifen 0.025% Ophth Soln) 0 ml EYEBOTH DAILY PRN PRN Reason: Dry Eyes Lamotrigine (Lamotrigine) 100 mg PO [facility] Last Admin: 05/20/19 05:09 Dose: 100 mg Multivitamins/Minerals/Vitamin C (Tab-A-Gilmar) 1 tab PO [facility] Last Admin: 05/20/19 05:12 Dose: 1 tab Betamethasone Dipropionate ( Diprolene) 0.05% Lotion Own Med 0 applic TP BID PRN PRN Reason: Rash Dextran 70/Hypromellose ( Artificial Tears) Solution Own Med 0 drop EYEBOTH DAILY PRN PRN Reason: Dry Eyes Non-Formulary Medication (Magnesium [Magnesium]) 250 mg PO BID@ [facility] Omeprazole [Prilosec (] 20 MgPt Own) 20 mg PO BID@06,20 [facility] Last Admin: 05/20/19 05:11 Dose: 20 mg Risperidone Microspheres ( Risperidal Consta) 25 Mg Own Med 0 mg IM Q14D [facility] Ropinirole Hcl 4 Mg* (*Pt Own) 4 mg PO DAILY@1999 [facility] Last Admin: 05/19/19 20:38 Dose: 4 mg Non-Formulary Medication (Sumatriptan Succinate [Imitrex]) 50 mg PO ASDIRECTED [facility] Nystatin (Nystatin Crm) 0 gm TOP BID PRN PRN Reason: Rash Sodium Chloride (Saline Flush) 10 ml FLUSH ASDIRECTED PRN PRN Reason: Keep Vein Open Last Admin: 05/19/19 20:45 Dose: 10 ml Verapamil HCl (Calan Sr) 120 mg PO QAM [facility] Last Admin: 05/20/19 05:13 Dose: 120 mg Warfarin Sodium (Coumadin) 2.5 mg PO SUTUWETHSA@1500 [facility] Warfarin Sodium (Coumadin) 5 mg PO MOFR@1500 [facility] Discontinued Medications Acetaminophen (Tylenol Extra Strength) 1,000 mg PO ONETIME ONE Stop: 05/18/19 14:32 Last Admin: 05/18/19 14:42 Dose: 1,000 mg Sodium Chloride (Normal Saline) 1,000 mls @ 100 mls/hr IV ASDIRECTED [facility] Stop: 05/22/19 14:11 Last Admin: 05/19/19 05:15 Dose: 100 mls/hr Ceftriaxone Sodium 1 gm/ (Sodium Chloride) 50 mls @ 200 mls/hr IV Q24H [facility] Last Admin: 05/18/19 15:31 Dose: 200 mls/hr Iopamidol (Isovue-370 (76%)) 80 ml IV . DIRECTED ONE Stop: 05/18/19 14:50 Last Admin: 05/18/19 15:12 Dose: 80 ml Warfarin Sodium (Coumadin Sliding Scale) 10 each PO ONETIME ONE Stop: 05/19/19 16:01 Warfarin Sodium (Coumadin) 10 mg PO ONETIME ONE Stop: 05/19/19 16:01 Last Admin: 05/19/19 15:13 Dose: 10 mg - Exam General: Alert, Oriented, Cooperative Lungs: Clear to Auscultation, Normal Respiratory Effort Cardiovascular: Regular Rate, Regular Rhythm, No Murmurs GI/Abdominal Exam: Soft, Non-Tender Back Exam: No: CVA Tenderness (R), CVA Tenderness (L) Psy/Mental Status: Alert, Normal Affect, Normal Mood - Problem List & Annotations (1) Mass of left breast SNOMED Code(s): 73181803 Code(s): N63.20 - UNSPECIFIED LUMP IN THE LEFT BREAST, UNSPECIFIED QUADRANT Status: Acute Current Visit: Yes (2) Breast mass, right SNOMED Code(s): 95589541 Code(s): N63.10 - UNSPECIFIED LUMP IN THE RIGHT BREAST, UNSPECIFIED QUADRANT Status: Acute Current Visit: Yes (3) Mass of left lung SNOMED Code(s): 036540841 Code(s): R91.8 - OTHER NONSPECIFIC ABNORMAL FINDING OF LUNG FIELD Status: Acute Current Visit: Yes (4) UTI (urinary tract infection) SNOMED Code(s): 69157049 Code(s): N39.0 - URINARY TRACT INFECTION, SITE NOT SPECIFIED Status: Acute Current Visit: Yes Qualifiers: Urinary tract infection type: site unspecified Hematuria presence: without hematuria Qualified Code(s): N39.0 - Urinary tract infection, site not specified (5) Unable to ambulate SNOMED Code(s): 647726532 Code(s): R26.2 - DIFFICULTY IN WALKING, NOT ELSEWHERE CLASSIFIED Status: Acute Current Visit: Yes (6) Palliative care status SNOMED Code(s): 842312930 Code(s): Z51.5 - ENCOUNTER FOR PALLIATIVE CARE Status: Acute Current Visit: No (7) Dehydration SNOMED Code(s): 82026651 Code(s): E86.0 - DEHYDRATION Status: Acute Current Visit: Yes - Problem List Review Problem List Initiated/Reviewed/Updated: Yes - My Orders Last 24 Hours: My Active Orders 05/19/19 08:41 Convert IV to Saline Lock [OM.PC] Routine 05/19/19 15:00 cefTRIAXone [Rocephin] 1 gm IV Q24H 05/19/19 16:31 Vital Signs [RC] 08,16,00 05/20/19 08:50 Ready for Discharge [RC] PER UNIT ROUTINE 05/20/19 15:00 Warfarin [Coumadin] 2.5 mg PO SUTUWETHSA@1500 05/21/19 05:11 INR,PT,PROTHROMBIN TIME [COAG] DAILY 05/21/19 15:00 Warfarin [Coumadin] 5 mg PO MOFR@1500 05/22/19 05:11 INR,PT,PROTHROMBIN TIME [COAG] DAILY 05/23/19 05:11 INR,PT,PROTHROMBIN TIME [COAG] DAILY 05/24/19 05:11 INR,PT,PROTHROMBIN TIME [COAG] DAILY 05/25/19 05:11 INR,PT,PROTHROMBIN TIME [COAG] DAILY 05/26/19 05:11 INR,PT,PROTHROMBIN TIME [COAG] DAILY 05/29/19 09:00 risperiDONE Microspheres [RisperiDAL Consta] 0 mg IM Q14D - Plan Plan:: 1. Patient rule out Escherichia coli sensitive to all antibiotics on the list. Her drugstores close a day. 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 I chose Augmentin because she is on Coumadin hopefully that will affect the INR the least. She has appoint with Dr. Devine regarding's both breasts masses and lung mass tomorrow.
--- NOTE | 2019-05-20 08:57 | PCM.DCSUM1 ---
Discharge Summary - Hospital Course Free Text/Narrative:: Hospital course-patient was admitted place and IV fluids and Rocephin. I discussed the results of her CT scan even though is a verbal report passed on to me by the ER doc. She had a left lung mass and bilateral breast mass. Dr. Devine who was going to perform her surgery early next week was called by the radiologist. He decided to have her come back on 05/21/19 to discuss what to do with this new information. She is placed in the hospital and she had been taken off her Coumadin and I discussed with the surgeon that we should restart her Coumadin until we know what they're going to do with the masses. Her urine was positive and chest x-ray and CT was reported to have no pneumonia just a lung mass. Patient was very weak and couldn't walk by the next morning she could get up and walk. She is oxygen at night. By the third day of admission the urine grew out Escherichia coli sensitive to everything. Because she is on Coumadin will send her home on Augmentin. We'll give her a Rocephin shot before she leaves because a Tuesday and her pharmacy isn't open. She'll pick up operator her antibiotic tomorrow. Follow-up with surgeon tomorrow and Dr. Carter her regular doctor within a week. I will order PT/OT and home health. Brief History: This is a 73-year-old female patient today stated she couldn't get out of bed when shaky. She states that's happened to her before and she waits a while and then she usually recovers. Today she didn't get better so she called ambulance was brought in the hospital. She has some white cells in her urine after full investigation and dehydrated. She had a CT of her chest and it was reported as a lung mass and left breast mass she's been having some pain on the left chest area.She has a history of left breast mass and a right breast masses following the CT scan. She denies shortness of breath, runny nose, sore throat, diarrhea, nausea, vomiting, acute urinary frequency, hematuria. She says she's had a little fever but no chills. When she came in initially she had no dysuria but now she says she does. Patient has a history of a right breast mass that she was going to have an operation next week. Ambulance report her O2 sats was 80% but when she gets to the emergency room is 97% on room air. She does wear oxygen at night. Diagnosis: Stroke: No - Discharge Data Discharge Date: 05/20/19 Discharge Disposition: Home, W Home Health Agency 06 Condition: Stable - Discharge Diagnosis/Problem(s) (1) Mass of left breast SNOMED Code(s): 55386729 ICD Code: N63.20 - UNSPECIFIED LUMP IN THE LEFT BREAST, UNSPECIFIED QUADRANT Status: Acute Current Visit: Yes (2) Breast mass, right SNOMED Code(s): 14117608 ICD Code: N63.10 - UNSPECIFIED LUMP IN THE RIGHT BREAST, UNSPECIFIED QUADRANT Status: Acute Current Visit: Yes (3) Mass of left lung SNOMED Code(s): 060515285 ICD Code: R91.8 - OTHER NONSPECIFIC ABNORMAL FINDING OF LUNG FIELD Status: Acute Current Visit: Yes (4) UTI (urinary tract infection) SNOMED Code(s): 95323687 ICD Code: N39.0 - URINARY TRACT INFECTION, SITE NOT SPECIFIED Status: Acute Current Visit: Yes Qualifiers: Urinary tract infection type: site unspecified Hematuria presence: without hematuria Qualified Code(s): N39.0 - Urinary tract infection, site not specified (5) Unable to ambulate SNOMED Code(s): 794702552 ICD Code: R26.2 - DIFFICULTY IN WALKING, NOT ELSEWHERE CLASSIFIED Status: Acute Current Visit: Yes (6) Palliative care status SNOMED Code(s): 512083449 ICD Code: Z51.5 - ENCOUNTER FOR PALLIATIVE CARE Status: Acute Current Visit: No (7) Dehydration SNOMED Code(s): 01775723 ICD Code: E86.0 - DEHYDRATION Status: Acute Current Visit: Yes - Patient Instructions Diet: Regular Diet as Tolerated Activity: As Tolerated Driving: Do Not Drive Showering/Bathing: May Shower Other/Special Instructions: 1. Recheck with Dr. Rishi Devine tomorrow. Placement set up by him. 2. Recheck with Dr. Nilay Carter in 1 week. 3. Home health for med management, home safety, strengthening and ADLs, PT/OT. - Discharge Plan Prescriptions/Med Rec: Amoxicillin/Potassium Clav [Augmentin 500-125 Tablet] 1 each PO BID #21 tablet Home Medications: Home Meds Benztropine [Cogentin] 1 mg PO BID@,05/09/14 [History] Cholecalciferol (Vitamin D3) [Vitamin D3] 1,000 unit PO QAM 05/09/14 [History] Escitalopram [Lexapro] 10 mg PO QAM 05/09/14 [History] Omeprazole [Prilosec] 20 mg PO BID@05/09/14 [History] atorvaSTATin Calcium [Atorvastatin Calcium] 20 mg PO DAILY@199905/09/14 [ History] lamoTRIgine [Lamictal] 100 mg PO QAM 05/09/14 [History] Acetaminophen 500 mg PO QID PRN 10/29/14 [History] Gabapentin 900 mg PO TID@,10/29/14 [History] Warfarin [Coumadin] 2.5 mg PO SUTUWETHSA@1500 10/30/14 [History] Warfarin [Coumadin] 5 mg PO MOFR@1500 04/29/15 [History] Diclofenac Sodium [Voltaren] 4 gm TOP BID 06/05/18 [History] Emollient [Vanicream] 1 applic TOP DAILY@06 PRN 06/05/18 [History] Ferrous Sulfate 325 mg PO QAM 06/05/18 [History] Fluticasone Propionate [Flonase] 2 spray NASBOTH DAILY@0606/05/18 [History] SUMAtriptan Succinate [Imitrex] 50 mg PO ASDIRECTED 06/05/18 [History] rOPINIRole HCl [Requip Xl] 4 mg PO DAILY@199906/05/18 [History] Multivitamin [Daily Gilmar] 1 tab PO QAM 08/23/18 [History] risperiDONE Microspheres [RisperiDAL Consta] 25 mg IM Q14D 08/23/18 [History] Albuterol [Ventolin HFA] 2 puff IH Q6H PRN 05/18/19 [History] Aspirin [Halfprin] 81 mg PO QAM 05/18/19 [History] Betamethasone Dipropionate [Diprolene 0.05% Lotion] 1 applic TP BID PRN [History] Calcium Citrate 600mg 300 mg PO BID@05/18/19 [History] Clobetasol [Temovate 0.05% Oint] 1 applic TOP BID PRN 05/18/19 [History] Dextran 70/Hypromellose [Artificial Tears] 1 drop EYEBOTH DAILY PRN 05/18/19 [ History] Ketotifen Fumarate [Zaditor] 1 drop EYEBOTH DAILY PRN 05/18/19 [History] Magnesium 250 mg PO BID@06,20 05/18/19 [History] Nystatin [Nystatin Crm] 1 applic TOP BID PRN 05/18/19 [History] Verapamil HCl [Verapamil ER] 120 mg PO QAM 05/18/19 [History] Amoxicillin/Potassium Clav [Augmentin 500-125 Tablet] 1 each PO BID #21 tablet 05/20/19 [Rx] Patient Handouts: Urinary Tract Infection, Adult, Fall Prevention in Hospitals , Adult, Venous Thromboembolism Prevention Forms: ED Department Discharge Referrals: Nilay Carter MD [Primary Care Provider] - - Discharge Summary/Plan Comment DC Time >30 min.: No - Patient Data Vitals - Most Recent: Last Vital Signs Temp 97.6 F 05/20/19 05:25 Pulse 88 05/20/19 05:25 Resp 20 05/20/19 05:25 BP 134/70 05/20/19 05:25 Pulse Ox 96 05/20/19 05:25 Orthostatic Blood Pressure [ 159/71 Standing] Orthostatic Blood Pressure [ 154/77 Sitting] Orthostatic Blood Pressure [ 145/70 Supine] Weight - Most Recent: 231 lb I&O - Last 24 hours: Intake & Output 05/19/19 05/20/19 05/20/19 22:59 06:59 14:59 Output Total 200 300 Balance -200 -300 Lab Results - Last 24 hrs: Laboratory Results - last 24 hr 05/20/19 Range/Units 06:15 PT 15.5 H (8.7-11.1) INR 1.61 H (0.89-1.13) ROBERT Results - Last 24 hrs: Microbiology 05/18/19 13:34 Urine Culture - Final Urine, Clean Catch Escherichia Coli 05/18/19 15:30 Aerobic Blood Culture - Preliminary Blood - Venous NO GROWTH AFTER 1 DAY Anaerobic Blood Culture - Preliminary NO GROWTH AFTER 1 DAY 05/18/19 15:35 Aerobic Blood Culture - Preliminary Blood - Venous - Lab Draw NO GROWTH AFTER 1 DAY Anaerobic Blood Culture - Preliminary NO GROWTH AFTER 1 DAY Med Orders - Current: Current Medications Acetaminophen (Tylenol Extra Strength) 500 mg PO QID PRN PRN Reason: HEADACHES Last Admin: 05/19/19 14:07 Dose: 500 mg Albuterol (Ventolin Hfa) 0 gm INH Q6H PRN PRN Reason: Shortness of Breath [facility]ir[facility] ([facility]prin) [facility] [place] Admin: 05/20/19 05:11 Dose: 81 mg Atorvastatin Calcium (Lipitor) 20 mg PO DAILY@1999 [facility] Last Admin: 05/19/19 20:37 Dose: 20 mg Benztropine Mesylate (Cogentin) 1 mg PO BID@ [facility] Last Admin: 05/20/19 05:11 Dose: 1 mg Ceftriaxone Sodium (Rocephin) 1 gm IV Q24H [facility] Last Admin: 05/19/19 15:18 Dose: 1 gm Cholecalciferol (Vitamin D3) 25 mcg [facility] [place] Last Admin: 05/20/19 05:12 Dose: 25 mcg Clobetasol Propionate (Temovate 0.05% Oint) 0 gm TOP BID PRN PRN Reason: Rash Diclofenac Sodium (Voltaren 1% Gel) 4 gm TOP BID [facility] Last Admin: 05/19/19 20:39 Dose: Not Given Emollient Ointment (Vanicream) 0 gm TOP DAILY@0600 PRN PRN Reason: Itching Escitalopram Oxalate (Lexapro) [facility] [place] Last Admin: 05/20/19 05:10 Dose: 10 mg Ferrous Sulfate (Ferrous Sulfate) 325 mg PO [facility] Last Admin: 05/20/19 05:09 Dose: 325 mg Fluticasone Propionate (Flonase) 0 gm NASBOTH DAILY@0600 [facility] Last Admin: 05/20/19 05:11 Dose: 2 puff Gabapentin (Neurontin) 900 mg PO TID@, [facility] Last Admin: 05/20/19 05:18 Dose: 900 mg Hydroxyzine HCl (Atarax) 25 mg PO BEDTIME PRN PRN Reason: Insomnia Last Admin: 05/19/19 01:49 Dose: 25 mg Ketotifen Fumarate (Ketotifen 0.025% Ophth Soln) 0 ml EYEBOTH DAILY PRN PRN Reason: Dry Eyes Lamotrigine (Lamotrigine) 100 mg PO QAM [facility] Last Admin: 05/20/19 05:09 Dose: 100 mg Multivitamins/Minerals/Vitamin C (Tab-A-Gilmar) 1 tab [facility] [place] Last Admin: 05/20/19 05:12 Dose: 1 tab Betamethasone Dipropionate ( Diprolene) 0.05% Lotion Own Med 0 applic TP BID PRN PRN Reason: Rash Dextran 70/Hypromellose ( Artificial Tears) Solution Own Med 0 drop EYEBOTH DAILY PRN PRN Reason: Dry Eyes Non-Formulary Medication (Magnesium [Magnesium]) 250 mg PO BID@ [facility] Omeprazole [Prilosec (] 20 MgPt Own) 20 mg PO BID@ [facility] Last Admin: 05/20/19 05:11 Dose: 20 mg Risperidone Microspheres ( Risperidal Consta) 25 Mg Own Med 0 mg IM Q14D [facility] Ropinirole Hcl 4 Mg* (*Pt Own) 4 mg PO DAILY@1999 [facility] Last Admin: 05/19/19 20:38 Dose: 4 mg Non-Formulary Medication (Sumatriptan Succinate [Imitrex]) 50 mg PO ASDIRECTED [facility] Nystatin (Nystatin Crm) 0 gm TOP BID PRN PRN Reason: Rash Sodium Chloride (Saline Flush) 10 ml FLUSH ASDIRECTED PRN PRN Reason: Keep Vein Open Last Admin: 05/19/19 20:45 Dose: 10 ml Verapamil HCl (Calan Sr) 120 [facility] [place] Last Admin: 05/20/19 05:13 Dose: 120 mg Warfarin Sodium (Coumadin) 2.5 mg PO SUTUWETHSA@1500 [facility] Warfarin Sodium (Coumadin) 5 mg PO MOFR@1500 [facility] Discontinued Medications Acetaminophen (Tylenol Extra Strength) 1,000 mg PO ONETIME ONE Stop: 05/18/19 14:32 Last Admin: 05/18/19 14:42 Dose: 1,000 mg Sodium Chloride (Normal Saline) 1,000 mls @ 100 mls/hr IV ASDIRECTED [facility] Stop: 05/22/19 14:11 Last Admin: 05/19/19 05:15 Dose: 100 mls/hr Ceftriaxone Sodium 1 gm/ (Sodium Chloride) 50 mls @ 200 mls/hr IV Q24H [facility] Last Admin: 05/18/19 15:31 Dose: 200 mls/hr Iopamidol (Isovue-370 (76%)) 80 ml IV . DIRECTED ONE Stop: 05/18/19 14:50 Last Admin: 05/18/19 15:12 Dose: 80 ml Warfarin Sodium (Coumadin Sliding Scale) 10 each PO ONETIME ONE Stop: 05/19/19 16:01 Warfarin Sodium (Coumadin) 10 mg PO ONETIME ONE Stop: 05/19/19 16:01 Last Admin: 05/19/19 15:13 Dose: 10 mg
[2019-05-20] MEDS: DICLOFENAC SODIUM 1% TOP SCH (09:39)
[2019-05-20] MEDS: cefTRIAXone 1 GM Vial IV SCH (10:08)
[2019-05-20] MEDS: Sodium Chloride 0.9% 10 ML Syringe FLUSH PRN (10:15)
[2019-05-20 10:50] VITALS: BP 93/58
[2019-05-20] MEDS ORDERED: Warfarin 5 MG Tab**OWN MED PO SCH (15:00)
--- NOTE | 2019-05-21 09:58 | CT ---
INDICATION: Left lateral chest pain with subtherapeutic INR, question PE. COMPUTERIZED TOMOGRAPHY ANGIOGRAPHY OF THE CHEST WITH CONTRAST: Spiral 1.25 mm axial sections were obtained through the chest with 80 mL Isovue 370 at 3.5 mL/ second with sagittal and coronal reconstructions, 05/18/19, and compared with . Total exam DLP = 900.43 mGy-cm. Mediastinal lymphadenopathy is mild but nonspecific. It is slightly more prominent than on the previous examination, raising question of interval inflammatory disease process. Other etiology cannot be excluded, however. The heart appears to be mildly enlarged or at the upper limits of normal in size. Coronary artery calcifications are noted. Calcifications are noted in the arch of the aorta. No pericardial effusion is seen. The upper abdomen included on the study showed no gross abnormalities, with some minimal calcifications in the aorta and clips compatible with cholecystectomy. No adrenal met was seen. In the left lower lobe posterior basilar segment, there is a large area of irregularly marginated - spiculated mass density with extensive pleural contact , measuring approximately 6 cm in maximum dimension craniocaudad by approximately 46 mm in AP diameter with a transverse diameter of approximately 27 to 34 mm and having the appearance and density of a primary lung carcinoma. Other etiology, such as focal or unusual pneumonia is felt to be less likely. This should be correlated clinically. This may represent a primary lung neoplasm. Additionally, there is pleural thickening medially compared to the posterolateral position of this mass at the left lower lobe. The increased pleural thickening compared with previous study could be on the basis of interval fibrosis, although metastatic disease to the pleural space in that area would be a consideration. Additionally, in the left upper lobe, there are some patchy areas of infiltrate and a subpleural nodular density, which at least partly were present previously and may represent fibrosis, although areas of minimal patchy pneumonia in that area cannot be entirely excluded. Metastatic disease is felt to be less likely with that appearance. No other nodular masses were noted in the lungs. There is noted a nodular mass in the left breast, measuring at least 18 mm and seen on axial image #104 with an 8 mm nodular density noted on the right in the medial posterior right breast, measuring 8.6 mm on axial image #159. These nodules could be metastatic or primary breast carcinomas and should be correlated clinically. Axillary node enlargement is relatively minimal and nonspecific. No definite bony metastatic deposit is noted. No evidence of pulmonary embolus could be identified. IMPRESSION: 1. No evidence of pulmonary embolus. 2. 5 x 6 cm irregular spiculated mass, relatively high in density (Hounsfield units 57.6), in the left lower lobe posterolaterally with extensive pleural contact in that area. A primary lung carcinoma is suspected. Metastatic disease to the pleura medially is also suggested in the left lower lobe area. 3. Minimal areas of pulmonary fibrosis. 4. Nodular masses in both breasts, etiology indeterminate, Ultrasound and possibly biopsy recommended. Metastatic versus primary breast carcinoma. 5. ASD/ASHD. Report was called to Dr. Rishi Delvalle at 1545 hours on 05/18/19. Dr. Delvalle requested that the patient, if discharged from the hospital prior to Tuesday, make an appointment to see him in the clinic on Tuesday. Report was called to Dr. Barahona at 1600 hours on 05/18/19. [facility]
[2019-05-21] MEDS ORDERED: Warfarin 5 MG Tab **OWN MED PO SCH (15:00)
[2019-05-29] MEDS ORDERED: RISPERIDONE MICROSPHERES 25 MG IM SCH (09:00)
== END 2019-05-20 10:45 | disposition home health service (06) ==
LOC: FB.ED 12:29 → FB.MS 14:42
PROVIDERS: ADMIT Family Medicine; ATTEND Family Medicine
DX: N39.0 Urinary tract infection, site not specified (principal); E86.0 Dehydration; N63.20 Unspecified lump in the left breast, unspecified quadrant; N63.10 Unspecified lump in the right breast, unspecified quadrant; R26.2 Difficulty in walking, not elsewhere classified; R91.8 Other nonspecific abnormal finding of lung field; I10 Essential (primary) hypertension; I48.91 Unspecified atrial fibrillation; E78.00 Pure hypercholesterolemia, unspecified; Z88.2 Allergy status to sulfonamides; Z51.5 Encounter for palliative care; Z87.891 Personal history of nicotine dependence; Z79.01 Long term (current) use of anticoagulants; Z79.51 Long term (current) use of inhaled steroids; Z79.82 Long term (current) use of aspirin; Z79.899 Other long term (current) drug therapy
CPT/HCPCS: 36415; 71046; 71275; 80048; 80053; 81001; 83735; 84484; 85025; 85610; 86140; 87040; 87086; 87088; 87186; 93005; 96361; 96374; 96376; 99285; A9270; G0378; J0696; J7030; J7050; Q9967

== ENCOUNTER 2019-07-10 07:03 | Observation (INO) | payer MEDICARE, MEDICAID ==
[~2019-07-10 07:03] MED LIST changes: +Lactated Ringers 1,000 ML IV SCH; -Sodium Chloride 0.9% 10 ML Syringe FLUSH PRN
[2019-07-10] MEDS: Sodium Chloride 0.9% 10 ML Syringe FLUSH PRN (08:06)
[2019-07-10] MEDS ORDERED: Glycopyrrolate 0.2 MG/ML 5 ML MDV IV ONE (11:11)
[2019-07-10] MEDS ORDERED: Midazolam 1 MG/ML 2 ML SDV IV ONE (11:11)
[2019-07-10] MEDS ORDERED: Flumazenil 0.1 MG/ML 5 ML MDV IV ONE (11:11)
[2019-07-10] MEDS ORDERED: Rocuronium 100 MG/10 ML MDV IV ONE (11:11)
[2019-07-10] MEDS ORDERED: Propofol 200 MG/20 ML SDV IV ONE (11:11)
[2019-07-10] MEDS ORDERED: Ondansetron 4 MG/2 ML SDV IVPUSH ONE (11:11)
[2019-07-10] MEDS ORDERED: Lactated Ringers 1,000 ML IV ONE (11:11)
[2019-07-10] MEDS ORDERED: Naloxone 0.4 MG/ML SDV IV ONE (11:11)
[2019-07-10] MEDS ORDERED: Ketorolac 30 MG/ML SDV IVPUSH ONE (11:11)
[2019-07-10] MEDS ORDERED: fentaNYL 100 MCG/2 ML SDV IV ONE (11:11)
[2019-07-10] MEDS ORDERED: HYDROmorphone 2 MG/ML SDV IV ONE (11:11)
[2019-07-10] MEDS ORDERED: ePHEDrine 50 MG/ML SDV IV ONE (11:11)
[2019-07-10] MEDS ORDERED: Dexamethasone 4 MG/ML 5 ML MDV IVPUSH ONE (11:11)
[2019-07-10] MEDS ORDERED: Sugammadex Sodium 200 MG/2 ML VIAL IV ONE (11:11)
[2019-07-10] MEDS ORDERED: Isosulfan Blue 5 ML SDV ONE (11:14)
--- NOTE | 2019-07-10 11:39 | HP ---
ADMISSION DATE: 07/10/2019 HISTORY OF PRESENT ILLNESS: This is a 74-year-old female who comes today for definitive surgery for recently diagnosed carcinoma of the left breast. She was noted on mammogram to have an abnormality, which led to a needle biopsy, which confirmed carcinoma of the left breast. The patient has not been having any symptoms of pain or nipple drainage. She has not noticed any swelling in her arms or lower extremities. PAST MEDICAL HISTORY: Includes chronic diagnoses of paranoia, history of pulmonary embolism for which she is on long-term Coumadin use. She also has a history of paranoia, hyperlipidemia, hypertension, and obesity. PAST SURGICAL HISTORY: Previous surgeries include tonsillectomy, knee arthroscopy, cholecystectomy, clavicle surgery, lumbar spine surgery, and she has chronic lower back pain for which she has had multiple injections. ALLERGIES: She is allergic to sulfa. HABITS: She is a former smoker, having quit in 2014. CURRENT MEDICATIONS: Reviewed as her medical record reveals they do include: 1. Coumadin along with verapamil 120 mg a day. 2. Cogentin 1 mg 2 times a day. 3. Lamictal 100 mg a day. 4. Lexapro 10 mg a day. 5. Gabapentin 300 mg 3 times a day. 6. Lipitor. 7. Vitamins. FAMILY HISTORY: Noncontributory. SOCIAL HISTORY: Patient lives alone by herself in [place]. She is currently not working. PHYSICAL EXAMINATION: VITAL SIGNS: Weight is 236 pounds, temperature is 98.2, pulse 69, blood pressure is 126/73. GENERAL: The patient is an alert, adult female. She is in no acute distress. HEENT: Head is normocephalic. No scleral icterus. No cervical masses are noted. HEART: Regular. LUNGS: Clear. BREASTS: Demonstrates no palpable breast masses or axillary lymphadenopathy. ABDOMEN: Soft. Nontender. No palpable masses. EXTREMITIES: No edema or obvious deformity. IMPRESSION: 1. Carcinoma of the left breast. 2. History of paranoia. 3. History of hypertension. 4. History of pulmonary embolism, on chronic anticoagulants. PLAN: Bilateral mastectomy with left axillary sentinel node biopsy. I have discussed the proposed operative procedure with the patient, reviewed with her the indications, options, and risks. She agrees to proceed. /[id number] TAMMY/ROBL
--- NOTE | 2019-07-10 12:26 | NM ---
INDICATION: Left breast CA. NUCLEAR MEDICINE, TUMOR LOCALIZATION, LIMITED: At 0808 hours, at [address] Rishi Delvalle, who injected the radionuclide, a total of 1.3 mCi and 1.3 mL was utilized, with a total injected dose of 1.24 mCi Tc 99m Sulfur Colloid. Residual in syringe was 0.06 mCi. MTDD
[2019-07-10] MEDS ORDERED: Morphine 2 MG/ML Syringe IVPUSH PRN (13:33)
[2019-07-10] MEDS ORDERED: Acetaminophen/HYDROcodone 325-5 MG Tab PO PRN (13:33)
[2019-07-10] MEDS ORDERED: Ondansetron 4 MG/2 ML SDV IVPUSH PRN (13:33)
--- NOTE | 2019-07-10 13:33 | PCM.OPNOTE ---
- General Post-Op/Procedure Note Date of Surgery/Procedure: 07/10/19 Operative Procedure(s): Bilateral Mastectomy with left axillary sentinel lymph node biopsy and biopsy of right axillary node Findings: No gross evidence of tumor Single mildly enlarged node both axillas Pre Op Diagnosis: Carcinoma of left breast Post-Op Diagnosis: Same Anesthesia Technique: General ET Tube Primary Surgeon: Rishi Delvalle Ordnance Handler: Jovanny Patel Reason Ordnance Handler Was Necessary: Assist with dissection and exposure and to improve efficiency Pathology: Both breasts Left axilla sentinel node Right axillary node Output, Urine Amount: 0 EBL in mLs: 100 Surgical Drain/Tube Type: Ramesh Shultz Flat Drain Drain/Tube Comments:: one at each side Complications: None Condition: Good
[2019-07-10] MEDS ORDERED: Ketotifen 0.025% Ophth Soln 5 ML Bottle EYEBOTH PRN (13:41)
[2019-07-10] MEDS ORDERED: BETAMETHASONE DIPROPIONATE TP PRN (13:41)
[2019-07-10] MEDS ORDERED: Clobetasol 0.05% Ointment 15 GM Tube TOP PRN (13:41)
[2019-07-10] MEDS ORDERED: Albuterol 8 GM Inhaler INH PRN (13:41)
[2019-07-10] MEDS ORDERED: Non-Formulary Medication 1 Each (Dextran 70/Hypromellose [Artificial Tears] 1 DROP) EYEBOTH PRN (13:41)
[2019-07-10] MEDS ORDERED: SUMATRIPTAN SUCCINATE 50 MG PO PRN (13:41)
[2019-07-10] MEDS ORDERED: RISPERIDONE MICROSPHERES 25 MG IM SCH (13:45)
[2019-07-10] MEDS ORDERED: ceFAZolin 1 GM in Sodium Chloride 0.9% 50 ML IV SCH (13:45)
[2019-07-10] MEDS ORDERED: Albuterol/Ipratropium 3.0-0.5 MG/3 ML Neb Soln ONE (14:05)
[2019-07-10] MEDS: Albuterol/Ipratropium 3.0-0.5 MG/3 ML Neb Soln NEB SCH ×3 (14:06→22:13)
--- NOTE | 2019-07-10 15:15 | OR ---
DATE OF OPERATION: 07/10/2019 SURGEON: Rishi Delvalle MD PROCESS LABORATORY SPECIALIST: Dr. Jay Patel. Home [employer] Extension Worker necessary to assist with dissection and exposure and improve efficiency. PREOPERATIVE DIAGNOSIS: Carcinoma of the left breast. POSTOPERATIVE DIAGNOSIS: Carcinoma of the left breast. OPERATION PERFORMED: Bilateral mastectomy, left axillary sentinel lymph node biopsy, and right axillary lymph node biopsy. INDICATIONS FOR SURGERY: This 74-year-old female has developed a cancer in her left breast. After reviewing her management options, she elected to undergo bilateral mastectomy and left axillary lymph sentinel node biopsy. FINDINGS: No gross evidence of carcinoma is noted during the dissection. The patient had a mildly enlarged node in each axilla. No other palpable nodes were noted on either side. PROCEDURE IN DETAIL: The patient was taken to the operating room. She was given general endotracheal anesthesia and the bilateral breast and axillary area was sterilely prepped and draped. The proposed location of the transverse elliptical incision on each side is marked on the skin and 3 mL of Isosulfan Blue is injected in the left retroareolar space. The breast was then massaged. It should be noted that 1.3 millicuries of technetium-99 had been injected into the periareolar space on the left side before the patient was taken to the operating room. The superior flap on the left breast was then created by 1st making an incision and then raising the flap using cautery dissection down to the underlying pectoralis major muscle. This dissection continued into the axilla where the radioactive probe was used to identify the location of 3 sentinel nodes. The 1st node identified was moderately large, although smooth and its 10- second count was 8482. The 2 other identified sentinel nodes by radionucleotide scanning were also removed. These were small and the 10-second counts on these were 780 and 640. Examination of the axilla also revealed a 2nd slightly enlarged lymph node on the left side. This did not appear to have any significant radionucleotide uptake, but because of its slightly enlarged size, it was removed and also submitted for pathology. The inferior flap of the left breast was then raised after an incision was made with electrocautery and the breast was carefully dissected off the underlying pectoralis major muscle using cautery dissection and including the fascia with the specimen. Moist packs were placed into the wound and attention was turned to the patient's right side. The superior flap was made again after incising the skin with electrocautery down to the pectoralis major muscle and then the inferior flap was also made in the same manner. The breast was dissected off the underlying right pectoralis major muscle, also including the fascia with the specimen using cautery dissection. After the breast had been removed, examination of the axilla did reveal 1 slightly enlarged lymph node and this was removed with cautery and submitted for pathologic evaluation. During and after the dissection, careful attention to hemostasis was carried out on each side. Cautery was used to control bleeding vessels and slightly larger vessels were controlled with 3-0 Vicryl suture ligatures. Both sites were irrigated and after inspection showed no sign of any complication. The breast incisions on each side were closed approximating the subcutaneous tissue with interrupted 3-0 Vicryl and then closing the skin with skin kimberley. Ramesh-Shultz drains were placed just before closure through separate stab wound incision on top of the pectoralis major on each side and these were connected to bulb suction. A sterile dressing was placed. The patient was then awakened and taken from the operating room in satisfactory condition. ESTIMATED BLOOD LOSS: 100 mL. COMPLICATIONS: None. PROGNOSIS: Good. /[id number] TAMMY/CRISELDA
[2019-07-10] MEDS: Lactated Ringers 1,000 ML IV SCH (15:39)
[2019-07-10] MEDS: Gabapentin 300 MG Cap *PTOM PO SCH (17:42)
[2019-07-10] MEDS: BENZTROPINE 1 MG PO SCH (17:42)
--- NOTE | 2019-07-10 18:15 | CONS ---
DATE OF CONSULTATION: 07/10/2019 HISTORY: Deysi is a 74-year-old woman with a history of schizophrenia, osteoarthritis, asthma with COPD, history of recurrent DVT, and hyperlipidemia. She was found to have carcinoma of the left breast confirmed by biopsy, and this morning, she underwent bilateral mastectomy by Dr. Delvalle at [facility] in [place]. Postoperatively, she had a hard time waking up. She is seen now in consultation to evaluate this further. The patient subsequently has become more alert. She is able to answer questions, although she is a bit of a poor historian. Deysi states she has had previous surgeries without apparent anesthetic problems. MEDICATIONS: See medication list, extensive and reviewed today, but specifically includes: 1. Warfarin. 2. Risperdal 25 mg IM every 14 days. 3. Ropinirole 4 mg daily. 4. Gabapentin 900 mg t.i.d. 5. Lamotrigine 100 mg daily. 6. Lexapro 10 mg q.a.m. 7. Verapamil ER 120 mg q.a.m. 8. Cogentin 1 mg b.i.d. 9. Atorvastatin 20 mg daily. 10.Imitrex p.r.n. 11.Omeprazole 20 mg b.i.d. 12.Diclofenac topical. 13.Albuterol HFA. PHYSICAL EXAMINATION: GENERAL: The patient was sleeping when I entered the room with O2 mask on. VITAL SIGNS: Blood pressure 107/54, pulse 87 and regular, respirations 18, temperature 97.4, and O2 saturation 97% on 10 L mask. SKIN: Anicteric. Warm, dry. She has dressings over both breasts with Ramesh- Shultz drains in place half full with blood. HEENT: Pupils equal and reactive. Throat was clear. LUNGS: Clear bilaterally. HEART: Regular without murmur or gallop. ABDOMEN: Normal bowel sounds. Soft and nontender. EXTREMITIES: Show no edema. NEUROLOGIC: Reveals her to answer questions readily, however, she is somewhat of a poor historian. Motor exam includes bilateral equal full strength. Foot dorsiflexion and plantar flexion. Bilateral equal web assistant strength and she can elevate each leg off the bed without difficulty. ASSESSMENT: Excess sedation postop due to combination of her anesthetic agents plus multiple sedating medications she is on. PLAN: We will hold the next two doses of gabapentin, continue her other medications and anticipate normal recovery. /[id number] ANIBAL/CRISELDA
[2019-07-10] MEDS: ceFAZolin 1 GM Vial IV SCH (18:58)
[2019-07-10] MEDS: CALCIUM CITRATE 600 MG PO SCH (19:30)
[2019-07-10] MEDS: atorvaSTATin 40 MG Tab *PTOM PO SCH (19:32)
[2019-07-10] MEDS: ROPINIROLE HCL 4 MG PO SCH (19:32)
[2019-07-10] MEDS: OMEPRAZOLE 20 MG PO SCH (19:32)
[2019-07-10] MEDS: Docusate Sodium/Sennosides 50-8.6 MG Tab *PTOM PO SCH ×2 (19:34→20:07)
[2019-07-11] MEDS: Acetaminophen/HYDROcodone 325-5 MG Tab PO PRN ×4 (01:13→20:33)
[2019-07-11] MEDS: Albuterol/Ipratropium 3.0-0.5 MG/3 ML Neb Soln NEB SCH ×3 (01:18→10:22)
[2019-07-11] MEDS: ceFAZolin 1 GM Vial IV SCH ×3 (01:21→17:02)
[2019-07-11] MEDS: Lactated Ringers 1,000 ML IV SCH ×2 (01:23→11:54)
[2019-07-11] MEDS: Verapamil 120 MG Tab.ER *PTOM PO SCH (05:09)
[2019-07-11] MEDS: CALCIUM CITRATE 600 MG PO SCH ×2 (05:10→20:27)
[2019-07-11] MEDS: lamoTRIgine 100 MG Tab *PTOM PO SCH (05:12)
[2019-07-11] MEDS: BENZTROPINE 1 MG PO SCH ×2 (05:12→14:19)
[2019-07-11] MEDS: Ferrous Sulfate 325 MG Tab *PTOM PO SCH (05:12)
[2019-07-11] MEDS: OMEPRAZOLE 20 MG PO SCH ×2 (05:13→20:29)
[2019-07-11] MEDS: Escitalopram 10 MG Tab *PTOM PO SCH (05:13)
[2019-07-11] MEDS: Cholecalciferol (Vitamin D3) 25 MCG Tab *PTOM PO SCH (05:14)
[2019-07-11] MEDS: Multivitamin Tab *PTOM PO SCH (05:17)
[2019-07-11] MEDS ORDERED: Fluticasone Propionate Nasal Spray 16 GM Bottle NASBOTH SCH (06:00)
[2019-07-11] MEDS ORDERED: Emollient 454 GM Jar TOP PRN (06:00)
--- NOTE | 2019-07-11 07:26 | PCM.SURGPN ---
- General Info Date of Service: 07/11/19 Date of Surgery/Procedure: 07/10/19 POD#: 1 Post-Op Diagnosis: bilateral mastectomy for breast ca Functional Status: Reports: Pain Controlled (denies any significant post op pain ) - Review of Systems Pulmonary: Denies: Shortness of Breath Cardiovascular: Denies: Chest Pain Gastrointestinal: Denies: Abdominal Pain Musculoskeletal: Denies: Leg Pain Neurological: Reports: Other (fails to follow some commands but generally appears to be back to baseline) - Patient Data Vitals - Most Recent: Last Vital Signs Temp 98.1 F 07/11/19 04:00 Pulse 92 07/11/19 05:18 Resp 18 07/11/19 04:00 BP 130/60 07/11/19 05:09 Pulse Ox 93 L 07/11/19 04:00 Weight - Most Recent: 236 lb I&O - Last 24 Hours: Intake & Output 07/10/19 07/11/19 07/11/19 22:59 06:59 14:59 Intake Total 880 889 Output Total 75 655 Balance 805 234 Lab Results Last 24 Hrs: Laboratory Results - last 24 hr 07/10/19 07/11/19 07/11/19 Range/Units 15:00 06:00 06:00 WBC 14.7 H (4.5-12.0) X10-3/uL RBC 3.56 (3.23-5.20) x10(6)uL Hgb 10.8 L (11.5-15.5) g/dL Hct 32.6 (30.0-51.3) % MCV 91.3 (80-96) fL MCH 30.4 (27.7-33.6) pg MCHC 33.3 (32.2-35.4) g/dL RDW 14.0 (11.5-15.5) % Plt Count 258 (125-369) X10(3)uL ABG pH 7.27 L (7.35-7.45) ABG pCO2 65 H* (35-45) mmHg ABG pO2 70 L (83-108) mmHg ABG HCO3 29 H (22-26) mmol/L ABG O2 Saturation 91 L (96-97) % ABG Base Excess 0.9 (-2-2) Alin Test Passed O2 Delivery Device Simple mask Oxygen Flow Rate 10 L Potassium 4.0 (3.5-5.3) mmol/L Med Orders - Current: Current Medications Acetaminophen (Tylenol Extra Strength) 500 mg PO QID PRN PRN Reason: HEADACHES Hydrocodone Bitart/Acetaminophen (Preston 325-5 Mg) 1 tab PO Q4H PRN PRN Reason: Pain (mild 1-3) Last Admin: 07/11/19 05:16 Dose: 1 tab Hydrocodone Bitart/Acetaminophen (Preston 325-5 Mg) 2 tab PO Q4H PRN PRN Reason: Pain (moderate 4-6) Albuterol (Ventolin Hfa) gm INH Q6H PRN PRN Reason: Shortness of Breath Albuterol/Ipratropium (Duoneb 3.0-0.5 Mg/3 Ml) 3 ml NEB Q4H [facility] Last Admin: 07/11/19 05:21 Dose: 3 ml Atorvastatin Calcium (Lipitor) 20 mg PO DAILY@1999 [facility] Last Admin: 07/10/19 19:32 Dose: 20 mg Benztropine Mesylate (Cogentin) 1 mg PO BID@,15 [facility] Last Admin: 07/11/19 05:12 Dose: 1 mg Cefazolin Sodium (Ancef) 1 gm IV Q8H [facility] Stop: 07/11/19 18:01 Last Admin: 07/11/19 01:21 Dose: 1 gm Cholecalciferol (Vitamin D3) [facility] Admin: 07/11/19 05:14 Dose: 25 mcg Clobetasol Propionate (Temovate 0.05% Oint) gm TOP BID PRN PRN Reason: Rash Emollient Ointment (Vanicream) gm TOP DAILY@0600 PRN PRN Reason: Itching Escitalopram Oxalate (Lexapro) 10 mg PO QAM [facility] Last Admin: 07/11/19 05:13 Dose: 10 mg Ferrous Sulfate (Ferrous Sulfate) [facility] [place] Last Admin: 07/11/19 05:12 Dose: 325 mg Fluticasone Propionate (Flonase) gm NASBOTH DAILY@0600 [facility] Gabapentin (Neurontin) 900 mg PO TID@06,15,20 [facility] Last Admin: 07/10/19 17:42 Dose: Not Given Lactated Ringer's (Ringers, Lactated) 1,000 mls @ 50 mls/hr IV ASDIRECTED [facility] Last Admin: 07/11/19 01:23 Dose: 100 mls/hr Ketotifen Fumarate (Ketotifen 0.025% Ophth Soln) ml EYEBOTH DAILY PRN PRN Reason: Dry Eyes Lamotrigine (Lamotrigine) 100 mg PO QAM [facility] Last Admin: 07/11/19 05:12 Dose: 100 mg Morphine Sulfate (Morphine) 2 mg IVPUSH Q1H PRN PRN Reason: Pain (severe 7-10) Multivitamins/Minerals/Vitamin C (Tab-A-Gilmar) [facility] Last Admin: 07/11/19 05:17 Dose: 1 tab Non-Formulary Medication (Betamethasone Dipropionate [Diprolene 0.05% Lotion]) 1 applic TP BID PRN PRN Reason: Rash Calcium Citrate (600mg Tab *Ptom) 300 mg PO BID@, [facility] Last Admin: 07/11/19 05:10 Dose: 300 mg Non-Formulary Medication (Dextran 70/Hypromellose [Artificial Tears]) 1 drop EYEBOTH DAILY PRN PRN Reason: Dry Eyes Omeprazole [Prilosec (] 20 Mg *Ptom) 20 mg PO BID@ [facility] Last Admin: 07/11/19 05:13 Dose: 20 mg Non-Formulary Medication (Risperidone Microspheres [Risperidal Consta]) 25 mg IM Q14D [facility] Ropinirole Hcl 4 Mg (Er *Ptom) 4 mg PO DAILY@1999 [facility] Last Admin: 07/10/19 19:32 Dose: 4 mg Non-Formulary Medication (Sumatriptan Succinate [Imitrex]) 50 mg PO ASDIRECTED PRN PRN Reason: Headache Ondansetron HCl (Zofran) 4 mg IVPUSH Q6H PRN PRN Reason: Nausea/Vomiting Senna/Docusate Sodium (Senna Plus) 1 tab PO BID [facility] Last Admin: 07/10/19 20:07 Dose: Not Given Sodium Chloride (Saline Flush) 10 ml FLUSH ASDIRECTED PRN PRN Reason: Keep Vein Open Last Admin: 07/10/19 08:06 Dose: 10 ml Verapamil HCl (Calan Sr) [facility] [place] Last Admin: 07/11/19 05:09 Dose: 120 mg Discontinued Medications Albuterol/Ipratropium (Duoneb 3.0-0.5 Mg/3 Ml) Confirm Administered Dose 3 ml .ROUTE .STK-MED ONE Stop: 07/10/19 14:06 Last Admin: 07/10/19 16:17 Dose: Not Given Lactated Ringer's (Ringers, Lactated) 1,000 mls @ 125 mls/hr IV ASDIRECTED [facility] Last Admin: 07/10/19 08:18 Dose: 125 mls/hr Isosulfan Blue (Lymphazurin 1%) 10 ml .XX .STK-MED ONE Stop: 07/10/19 11:15 Last Admin: 07/10/19 11:14 Dose: 10 ml - Exam Wound/Incisions: Drainage (moderate), Other (skin flaps healthy, mild ecchymosis on right and slight localized erythema both sides, SHABANA drainage moderate, still bloody but thinning) General: Alert, Cooperative, No Acute Distress Lungs: Normal Respiratory Effort, Rales (few in bases) Extremities: Non-Tender, Other (no upper extremity swelling, moves arms well, ambulatory with assistance) - Problem List Review Problem List Initiated/Reviewed/Updated: Yes - My Orders Last 24 Hours: Active Orders 24 hr Category Date Time Status Patient Status [ADT] Routine ADT 07/10/19 13:33 Active Antiembolic Devices [RC] .Routine Care 07/10/19 13:37 Active Notify Provider Consults [RC] ASDIRECTED Care 07/10/19 14:27 Active Oxygen Therapy [RC] PRN Care 07/10/19 13:33 Active RT Aerosol Therapy [RC] ASDIRECTED Care 07/10/19 14:02 Active RT Incentive Spirometry [RC] Q1HWA Care 07/10/19 13:33 Active Up With Assistance [RC] ASDIRECTED Care 07/10/19 13:33 Active VTE/DVT Education [RC] Click to Edit Care 07/10/19 13:37 Active Vital Signs [RC] 08,12,16,20,00,04 Care 07/10/19 13:33 Active Consult to Physician [CONS] Routine Cons 07/10/19 14:26 Ordered Regular Diet [DIET] Diet 07/10/19 Lunch Ordered CBC WITH MANUAL DIFF [HEME] AM Lab 07/11/19 07:30 Ordered Acetaminophen [Tylenol Extra Strength] Med 07/10/19 13:41 Active 500 mg PO QID PRN Acetaminophen/HYDROcodone [Preston 325-5 MG] Med 07/10/19 13:33 Active 1 tab PO Q4H PRN Acetaminophen/HYDROcodone [Preston 325-5 MG] Med 07/10/19 13:33 Active 2 tab PO Q4H PRN Albuterol [Ventolin HFA] Med 07/10/19 13:41 Pending DOSE gm INH Q6H PRN Albuterol/Ipratropium [DuoNeb 3.0-0.5 MG/3 ML] Med 07/10/19 14:15 Active 3 ml NEB Q4H Benztropine [Cogentin] Med 07/10/19 15:00 Active 1 mg PO BID@,15 Betamethasone Dipropionate [Diprolene 0.05% Lotion] Med 07/10/19 13:41 Pending 1 applic TP BID PRN Calcium Citrate 600mg Med 07/10/19 20:00 Active 300 mg PO BID@,20 Cholecalciferol (Vitamin D3) [Vitamin D3] Med 07/11/19 06:00 Active 25 mcg PO QAM Clobetasol [Temovate 0.05% Oint] Med 07/10/19 13:41 Pending DOSE gm TOP BID PRN Dextran 70/Hypromellose [Artificial Tears] Med 07/10/19 13:41 Pending 1 drop EYEBOTH DAILY PRN Docusate Sodium/Sennosides [Senna Plus] Med 07/10/19 21:00 Active 1 tab PO BID Emollient [Vanicream] Med 07/11/19 06:00 Pending DOSE gm TOP DAILY@0600 PRN Escitalopram [Lexapro] Med 07/11/19 06:00 Active 10 mg PO QAM Ferrous Sulfate Med 07/11/19 06:00 Active 325 mg PO QAM Fluticasone Propionate [Flonase] Med 07/11/19 06:00 Pending DOSE gm NASBOTH DAILY@0600 Gabapentin [Neurontin] Med 07/10/19 15:00 Active 900 mg PO TID@06,15,20 Ketotifen [Ketotifen 0.025% Ophth Soln] Med 07/10/19 13:41 Pending DOSE ml EYEBOTH DAILY PRN Lactated Ringers [Ringers, Lactated] 1,000 ml Med 07/10/19 13:45 Active IV ASDIRECTED Morphine Med 07/10/19 13:33 Active 2 mg IVPUSH Q1H PRN Multivitamins [Tab-A-Gilmar] Med 07/11/19 06:00 Active 1 tab PO QAM Omeprazole [Prilosec] Med 07/10/19 20:00 Active 20 mg PO BID@06,20 Ondansetron [Zofran] Med 07/10/19 13:33 Active 4 mg IVPUSH Q6H PRN SUMAtriptan Succinate [Imitrex] Med 07/10/19 13:41 Pending 50 mg PO ASDIRECTED PRN Sodium Chloride 0.9% [Saline Flush] Med 07/10/19 07:00 Active 10 ml FLUSH ASDIRECTED PRN Verapamil [Calan SR] Med 07/11/19 06:00 Active 120 mg PO QAM atorvaSTATin [Lipitor] Med 07/10/19 20:00 Active 20 mg PO DAILY@1999 ceFAZolin [Ancef] Med 07/10/19 18:00 Active 1 gm IV Q8H lamoTRIgine Med 07/11/19 06:00 Active 100 mg PO QAM rOPINIRole HCl Med 07/10/19 20:00 Active 4 mg PO DAILY@1999 risperiDONE Microspheres [RisperiDAL Consta] Med 07/10/19 13:45 Pending 25 mg IM Q14D DVT/VTE Prophylaxis Reflex [OM.PC] Per Unit Routine Oth 07/10/19 13:37 Ordered Peripheral IV Insertion Adult [OM.PC] Routine Oth 07/10/19 07:00 Ordered Sequential Compression Device [OM.PC] Routine Oth 07/10/19 07:00 Ordered Medication Orders Acetaminophen (Tylenol Extra Strength) 500 mg PO QID PRN PRN Reason: HEADACHES Hydrocodone Bitart/Acetaminophen (Preston 325-5 Mg) 1 tab PO Q4H PRN PRN Reason: Pain (mild 1-3) Last Admin: 07/11/19 05:16 Dose: 1 tab Admin: 07/11/19 01:13 Dose: 1 tab Hydrocodone Bitart/Acetaminophen (Preston 325-5 Mg) 2 tab PO Q4H PRN PRN Reason: Pain (moderate 4-6) Albuterol (Ventolin Hfa) gm INH Q6H PRN PRN Reason: Shortness of Breath Albuterol/Ipratropium (Duoneb 3.0-0.5 Mg/3 Ml) 3 ml NEB Q4H [facility] Last Admin: 07/11/19 05:21 Dose: 3 ml Admin: 07/11/19 01:18 Dose: 3 ml Admin: 07/10/19 22:13 Dose: 3 ml Admin: 07/10/19 17:47 Dose: 3 ml Admin: 07/10/19 14:06 Dose: 3 ml Atorvastatin Calcium (Lipitor) 20 mg PO DAILY@1999 [facility] Last Admin: 07/10/19 19:32 Dose: 20 mg Benztropine Mesylate (Cogentin) 1 mg PO BID@ [facility] Last Admin: 07/11/19 05:12 Dose: 1 mg Admin: 07/10/19 17:42 Dose: 1 mg Cefazolin Sodium (Ancef) 1 gm IV Q8H [facility] Stop: 07/11/19 18:01 Last Admin: 07/11/19 01:21 Dose: 1 gm Admin: 07/10/19 18:58 Dose: 1 gm Cholecalciferol (Vitamin D3) 25 mcg PO QAM [facility] Last Admin: 07/11/19 05:14 Dose: 25 mcg Clobetasol Propionate (Temovate 0.05% Oint) gm TOP BID PRN PRN Reason: Rash Emollient Ointment (Vanicream) gm TOP DAILY@0600 PRN PRN Reason: Itching Escitalopram [facility]alate (Lexapro) [facility] Last Admin: 07/11/19 05:13 Dose: 10 mg Ferrous Sulfate (Ferrous Sulfate) 325 mg PO QAM [facility] Last Admin: 07/11/19 05:12 Dose: 325 mg Fluticasone Propionate (Flonase) gm NASBOTH DAILY@0600 [facility] Gabapentin (Neurontin) 900 mg PO TID@,, [facility] Last Admin: 07/10/19 17:42 Dose: Lactated Ringer's (Ringers, Lactated) 1,000 mls @ 50 mls/hr IV ASDIRECTED [facility] Last Admin: 07/11/19 01:23 Dose: 100 mls/hr Infusion: 07/11/19 01:23 Dose: 100 mls/hr Admin: 07/10/19 15:39 Dose: 100 mls/hr Ketotifen Fumarate (Ketotifen 0.025% Ophth Soln) ml EYEBOTH DAILY PRN PRN Reason: Dry Eyes Lamotrigine (Lamotrigine) 100 mg PO QAM [facility] Last Admin: 07/11/19 05:12 Dose: 100 mg Morphine Sulfate (Morphine) 2 mg IVPUSH Q1H PRN PRN Reason: Pain (severe 7-10) Multivitamins/Minerals/Vitamin C (Tab-A-Gilmar) 1 tab PO QAM [facility] Last Admin: 07/11/19 05:17 Dose: 1 tab Non-Formulary Medication (Betamethasone Dipropionate [Diprolene 0.05% Lotion]) 1 applic TP BID PRN PRN Reason: Rash Calcium Citrate (600mg Tab *Ptom) 300 mg PO BID@ [facility] Last Admin: 07/11/19 05:10 Dose: 300 mg Admin: 07/10/19 19:30 Dose: 300 mg Non-Formulary Medication (Dextran 70/Hypromellose [Artificial Tears]) 1 drop EYEBOTH DAILY PRN PRN Reason: Dry Eyes Omeprazole [Prilosec (] 20 Mg *Ptom) 20 mg PO BID@ [facility] Last Admin: 07/11/19 05:13 Dose: 20 mg Admin: 07/10/19 19:32 Dose: 20 mg Non-Formulary Medication (Risperidone Microspheres [Risperidal Consta]) 25 mg IM Q14D [facility] Ropinirole Hcl 4 Mg (Er *Ptom) 4 mg PO DAILY@1999 [facility] Last Admin: 07/10/19 19:32 Dose: 4 mg Non-Formulary Medication (Sumatriptan Succinate [Imitrex]) 50 mg PO ASDIRECTED PRN PRN Reason: Headache Ondansetron HCl (Zofran) 4 mg IVPUSH Q6H PRN PRN Reason: Nausea/Vomiting Senna/Docusate Sodium (Senna Plus) 1 tab PO BID [facility] Last Admin: 07/10/19 20:07 Dose: Admin: 07/10/19 19:34 Dose: 1 tab Sodium Chloride (Saline Flush) 10 ml FLUSH ASDIRECTED PRN PRN Reason: Keep Vein Open Last Admin: 07/10/19 08:06 Dose: 10 ml Verapamil HCl (Calan Sr) 120 mg PO QAM [facility] Last Admin: 07/11/19 05:09 Dose: 120 mg - Assessment Assessment (Free Text/Narrative):: POD#1 Mastectomy still weak but improving - Plan Plan (Free Text/Narrative):: Continue SVN's will reassess later today
[2019-07-11] MEDS: Docusate Sodium/Sennosides 50-8.6 MG Tab *PTOM PO SCH ×2 (08:38→20:35)
[2019-07-11] MEDS: Sodium Chloride 0.9% 10 ML Syringe FLUSH PRN ×2 (09:31→22:38)
--- NOTE | 2019-07-11 13:28 | PN ---
DATE SEEN: 07/11/2019 HISTORY: Deysi is a 74-year-old woman, who underwent bilateral mastectomy yesterday. She had a slightly prolonged wake up, likely due to her combination of previous medications and anesthetic. She is examined this morning, sitting up in her chair. She is bright, alert, and comfortable. She says she only has pain when she stretches her upper body. PHYSICAL EXAMINATION: VITAL SIGNS: Blood pressure 123/64, pulse 102 and regular, respirations 12, O2 saturation 91% on room air, temperature 98.7, weight 236. GENERAL: Shows her to be awake, alert. HEENT: Pupils are equal and reactive. Mouth is dry. LUNGS: Clear to the bases. HEART: Regular without murmur or gallop. ABDOMEN: Soft. She has Ramesh-Shultz drains with blood in bilaterally. EXTREMITIES: Show no edema. ASSESSMENT: Satisfactory healing postoperative day 2, bilateral mastectomy. PLAN: Deysi is medically very stable. She will follow with Dr. Delvalle's instructions for postoperative care and eventual return to home. /[id number] ANIBAL/CRISELDA
[2019-07-11] MEDS: Gabapentin 300 MG Cap *PTOM PO SCH ×2 (14:18→20:29)
[2019-07-11] MEDS: atorvaSTATin 40 MG Tab *PTOM PO SCH (20:28)
[2019-07-11] MEDS: ROPINIROLE HCL 4 MG PO SCH (20:30)
[2019-07-12] MEDS: Acetaminophen/HYDROcodone 325-5 MG Tab PO PRN ×3 (00:32→10:47)
[2019-07-12] MEDS: Verapamil 120 MG Tab.ER *PTOM PO SCH (05:24)
[2019-07-12] MEDS: CALCIUM CITRATE 600 MG PO SCH (05:25)
[2019-07-12] MEDS: BENZTROPINE 1 MG PO SCH (05:25)
[2019-07-12] MEDS: Cholecalciferol (Vitamin D3) 25 MCG Tab *PTOM PO SCH (05:26)
[2019-07-12] MEDS: OMEPRAZOLE 20 MG PO SCH (05:26)
[2019-07-12] MEDS: Ferrous Sulfate 325 MG Tab *PTOM PO SCH (05:27)
[2019-07-12] MEDS: lamoTRIgine 100 MG Tab *PTOM PO SCH (05:27)
[2019-07-12] MEDS: Escitalopram 10 MG Tab *PTOM PO SCH (05:27)
[2019-07-12] MEDS: Gabapentin 300 MG Cap *PTOM PO SCH (05:29)
[2019-07-12] MEDS: Multivitamin Tab *PTOM PO SCH (05:29)
--- NOTE | 2019-07-12 06:48 | PCM.SURGPN ---
- General Info Date of Service: 07/12/19 Date of Surgery/Procedure: 07/10/19 POD#: 2 Post-Op Diagnosis: Bilateral mastectomy for breast ca Functional Status: Reports: Pain Controlled (patient denies pain) - Review of Systems General: Denies: Fever, Chills Pulmonary: Denies: Shortness of Breath Cardiovascular: Denies: Chest Pain Gastrointestinal: Denies: Abdominal Pain Genitourinary: Denies: Dysuria Musculoskeletal: Reports: Other (no upper extremity numbness or swelling) Neurological: Reports: Other (Alert - appears to be back to baseline) - Patient Data Vitals - Most Recent: Last Vital Signs Temp 97.8 F 07/12/19 05:15 Pulse 59 L 07/12/19 05:24 Resp 16 07/12/19 00:00 BP 106/54 L 07/12/19 05:24 Pulse Ox 96 07/12/19 00:00 Weight - Most Recent: 236 lb I&O - Last 24 Hours: Intake & Output 07/11/19 07/11/19 07/12/19 14:59 22:59 06:59 Intake Total 300 1380 200 Output Total 305 505 7305 Balance -511 390 -895 Lab Results Last 24 Hrs: Laboratory Results - last 24 hr 07/11/19 Range/Units 06:00 WBC 14.8 H (4.5-12.0) X10-3/uL RBC 3.48 (3.23-5.20) x10(6)uL Hgb 10.7 L (11.5-15.5) g/dL Hct 31.7 (30.0-51.3) % MCV 90.9 (80-96) fL MCH 30.7 (27.7-33.6) pg MCHC 33.8 (32.2-35.4) g/dL RDW 13.8 (11.5-15.5) % Plt Count 254 (125-369) X10(3)uL MPV 8.8 (7.4-10.4) fL Add Manual Diff Yes Neutrophils % (Manual) 83 H (46-82) % Band Neutrophils % 2 (0-6) % Lymphocytes % (Manual) 7 L (13-37) % Monocytes % (Manual) 8 (4-12) % Med Orders - Current: Current Medications Acetaminophen (Tylenol Extra Strength) 500 mg PO QID PRN PRN Reason: HEADACHES Last Admin: 07/11/19 11:53 Dose: 500 mg Hydrocodone Bitart/Acetaminophen (Sun 325-5 Mg) 1 tab PO Q4H PRN PRN Reason: Pain (mild 1-3) Last Admin: 07/12/19 05:21 Dose: 1 tab Hydrocodone Bitart/Acetaminophen (Sun 325-5 Mg) 2 tab PO Q4H PRN PRN Reason: Pain (moderate 4-6) Last Admin: 07/11/19 14:19 Dose: 2 tab Albuterol (Ventolin Hfa) gm INH Q6H PRN PRN Reason: Shortness of Breath Atorvastatin Calcium (Lipitor) 20 mg PO DAILY@1999 PENDING SALE TO [facility] Last Admin: 07/11/19 20:28 Dose: 20 mg Benztropine Mesylate (Cogentin) 1 mg PO BID@ PENDING SALE TO [facility] Last Admin: 07/12/19 05:25 Dose: 1 mg Cholecalciferol (Vitamin D3) [address] [facility] Last Admin: 07/12/19 05:26 Dose: 25 mcg Clobetasol Propionate (Temovate 0.05% Oint) gm TOP BID PRN PRN Reason: Rash Emollient Ointment (Vanicream) gm TOP DAILY@0600 PRN PRN Reason: Itching Escitalopram Oxalate (Lexapro) [address] [facility] Last Admin: 07/12/19 05:27 Dose: 10 mg Ferrous Sulfate (Ferrous Sulfate) [address] [facility] Last Admin: 07/12/19 05:27 Dose: 325 mg Fluticasone Propionate (Flonase) gm NASBOTH DAILY@0600 PENDING SALE TO [facility] Gabapentin (Neurontin) 900 mg PO TID@,, PENDING SALE TO [facility] Last Admin: 07/12/19 05:29 Dose: 900 mg Ketotifen Fumarate (Ketotifen 0.025% Ophth Soln) ml EYEBOTH DAILY PRN PRN Reason: Dry Eyes Lamotrigine (Lamotrigine) [address] [facility] Last Admin: 07/12/19 05:27 Dose: 100 mg Morphine Sulfate (Morphine) 2 mg IVPUSH Q1H PRN PRN Reason: Pain (severe 7-10) Multivitamins/Minerals/Vitamin C ([facility]-A-[facility]) [facility] Admin: 07/12/19 05:29 Dose: 1 tab Non-Formulary Medication (Betamethasone Dipropionate [Diprolene 0.05% Lotion]) 1 applic TP BID PRN PRN Reason: Rash Calcium Citrate (600mg Tab *Ptom) 300 mg PO BID@ PEND[facility] SALE TO [facility] Last Admin: 07/12/19 05:25 Dose: 300 mg Non-Formulary Medication (Dextran 70/Hypromellose [Artificial Tears]) 1 drop EYEBOTH DAILY PRN PRN Reason: Dry Eyes Omeprazole [Prilosec (] 20 Mg *Ptom) 20 mg PO BID@ PENDING SALE [facility] Last Admin: 07/12/19 05:26 Dose: 20 mg Non-Formulary Medication (Risperidone Microspheres [Risperidal Consta]) 25 mg IM Q14D PENDING SALE TO [facility] Ropinirole Hcl 4 Mg (Er *Ptom) 4 mg PO DAILY@1999 PENDING SALE TO [facility] Last Admin: 07/11/19 20:30 Dose: 4 mg Non-Formulary Medication (Sumatriptan Succinate [Imitrex]) 50 mg PO ASDIRECTED PRN PRN Reason: Headache Ondansetron HCl (Zofran) 4 mg IVPUSH Q6H PRN PRN Reason: Nausea/Vomiting Senna/Docusate Sodium (Senna Plus) 1 tab PO BID PENDING SALE TO [facility] Last Admin: 07/11/19 20:35 Dose: Not Given Sodium Chloride (Saline Flush) 10 ml FLUSH ASDIRECTED PRN PRN Reason: Keep Vein Open Last Admin: 07/11/19 22:38 Dose: 10 ml Verapamil HCl (Calan Sr) 120 mg PO QAM PENDING SALE TO [facility] Last Admin: 07/12/19 05:24 Dose: 120 mg Discontinued Medications Albuterol/Ipratropium (Duoneb 3.0-0.5 Mg/3 Ml) 3 ml NEB Q4H PENDING SALE TO [facility] Last Admin: 07/11/19 10:22 Dose: 3 ml Albuterol/Ipratropium (Duoneb 3.0-0.5 Mg/3 Ml) Confirm Administered Dose 3 ml .ROUTE .STK-MED ONE Stop: 07/10/19 14:06 Last Admin: 07/10/19 16:17 Dose: Not Given Cefazolin Sodium (Ancef) 1 gm IV Q8H PEND[facility] SALE TO [facility] Stop: 07/11/19 18:01 Last Admin: 07/11/19 17:02 Dose: 1 gm Lactated Ringer's (Ringers, Lactated) 1,000 mls @ 125 mls/hr IV ASDIRECTED PENDING SALE TO [facility] Last Admin: 07/10/19 08:18 Dose: 125 mls/hr Lactated Ringer's (Ringers, Lactated) 1,000 mls @ 50 mls/hr IV ASDIRECTED PENDING SALE TO [facility] Stop: 07/11/19 21:00 Last Admin: 07/11/19 11:54 Dose: 50 mls/hr Isosulfan Blue (Lymphazurin 1%) 10 ml .XX .STK-MED ONE Stop: 07/10/19 11:15 Last Admin: 07/10/19 11:14 Dose: 10 ml - Exam Wound/Incisions: Healing Well (mild bruising but flaps healthy with minimal drainage) General: Alert, Oriented Lungs: Normal Respiratory Effort GI/Abdominal Exam: Soft, Non-Tender Extremities: Normal Inspection - Problem List Review Problem List Initiated/Reviewed/Updated: Yes - My Orders Last 24 Hours: Active Orders 24 hr Category Date Time Status Admission Status [Patient Status] [ADT] Routine ADT 07/11/19 17:28 Active Cholecalciferol (Vitamin D3) [Vitamin D3] Med 07/11/19 06:00 Active 25 mcg PO QAM Emollient [Vanicream] Med 07/11/19 06:00 Pending DOSE gm TOP DAILY@0600 PRN Escitalopram [Lexapro] Med 07/11/19 06:00 Active 10 mg PO QAM Ferrous Sulfate Med 07/11/19 06:00 Active 325 mg PO QAM Fluticasone Propionate [Flonase] Med 07/11/19 06:00 Pending DOSE gm NASBOTH DAILY@0600 Multivitamins [Tab-A-Gilmar] Med 07/11/19 06:00 Active 1 tab PO QAM Verapamil [Calan SR] Med 07/11/19 06:00 Active 120 mg PO QAM lamoTRIgine Med 07/11/19 06:00 Active 100 mg PO QAM Convert IV to Saline Lock [OM.PC] Routine Oth 07/11/19 21:00 Ordered Medication Orders Acetaminophen (Tylenol Extra Strength) 500 mg PO QID PRN PRN Reason: HEADACHES Last Admin: 07/11/19 11:53 Dose: 500 mg Hydrocodone Bitart/Acetaminophen (Sun 325-5 Mg) 1 tab PO Q4H PRN PRN Reason: Pain (mild 1-3) Last Admin: 07/12/19 05:21 Dose: 1 tab Admin: 07/12/19 00:32 Dose: 1 tab Admin: 07/11/19 20:33 Dose: 1 tab Admin: 07/11/19 09:44 Dose: 1 tab Admin: 07/11/19 05:16 Dose: 1 tab Admin: 07/11/19 01:13 Dose: 1 tab Hydrocodone Bitart/Acetaminophen (Sun 325-5 Mg) 2 tab PO Q4H PRN PRN Reason: Pain (moderate 4-6) Last Admin: 07/11/19 14:19 Dose: 2 tab Albuterol (Ventolin Hfa) gm INH Q6H PRN PRN Reason: Shortness of Breath Atorvastatin Calcium (Lipitor) 20 mg PO DAILY@1999 PENDING SALE TO [facility] Last Admin: 07/11/19 20:28 Dose: 20 mg Admin: 07/10/19 19:32 Dose: 20 mg Benztropine Mesylate (Cogentin) 1 mg PO BID@06,15 PENDING SALE TO [facility] Last Admin: 07/12/19 05:25 Dose: 1 mg Admin: 07/11/19 14:19 Dose: 1 mg Admin: 07/11/19 05:12 Dose: 1 mg Admin: 07/10/19 17:42 Dose: 1 mg Cholecalciferol (Vitamin D3) [address] [facility] Last Admin: 07/12/19 05:26 Dose: 25 mcg Admin: 07/11/19 05:14 Dose: 25 mcg Clobetasol Propionate (Temovate 0.05% Oint) gm TOP BID PRN PRN Reason: Rash Emollient Ointment (Vanicream) gm TOP DAILY@0600 PRN PRN Reason: Itching Escitalopram Oxalate (Lexapro) [address] [facility] Last Admin: 07/12/19 05:27 Dose: 10 mg Admin: 07/11/19 05:13 Dose: 10 mg Ferrous Sulfate (Ferrous Sulfate) [address] [facility] Last Admin: 07/12/19 05:27 Dose: 325 mg Admin: 07/11/19 05:12 Dose: 325 mg Fluticasone Propionate (Flonase) gm NASBOTH DAILY@0600 PENDING SALE TO [facility] Gabapentin (Neurontin) 900 mg PO TID@, PENDING SALE TO [facility] Last Admin: 07/12/19 05:29 Dose: 900 mg Admin: 07/11/19 20:29 Dose: 900 mg Admin: 07/11/19 14:18 Dose: 900 mg Admin: 07/10/19 17:42 Dose: Ketotifen Fumarate (Ketotifen 0.025% Ophth Soln) ml EYEBOTH DAILY PRN PRN Reason: Dry Eyes Lamotrigine (Lamotrigine) 100 mg PO QAM PENDING SALE TO [facility] Last Admin: 07/12/19 05:27 Dose: 100 mg Admin: 07/11/19 05:12 Dose: 100 mg Morphine Sulfate (Morphine) 2 mg IVPUSH Q1H PRN PRN Reason: Pain (severe 7-10) Multivitamins/Minerals/Vitamin C ([facility]A-Gilmar) [facility] Admin: 07/12/19 05:29 Dose: 1 tab Admin: 07/11/19 05:17 Dose: 1 tab Non-Formulary Medication (Betamethasone Dipropionate [Diprolene 0.05% Lotion]) 1 applic TP BID PRN PRN Reason: Rash Calcium Citrate (600mg Tab *Ptom) 300 mg PO BID@ PENDING SALE [facility] Last Admin: 07/12/19 05:25 Dose: 300 mg Admin: 07/11/19 20:27 Dose: 300 mg Admin: 07/11/19 05:10 Dose: 300 mg Admin: 07/10/19 19:30 Dose: 300 mg Non-Formulary Medication (Dextran 70/Hypromellose [Artificial Tears]) 1 drop EYEBOTH DAILY PRN PRN Reason: Dry Eyes Omeprazole [Prilosec (] 20 Mg *Ptom) 20 mg PO BID@ PENDING SALE [facility] Last Admin: 07/12/19 05:26 Dose: 20 mg Admin: 07/11/19 20:29 Dose: 20 mg Admin: 07/11/19 05:13 Dose: 20 mg Admin: 07/10/19 19:32 Dose: 20 mg Non-Formulary Medication (Risperidone Microspheres [Risperidal Consta]) 25 mg IM Q14D PENDING SALE TO [facility] Ropinirole Hcl 4 Mg (Er *Ptom) 4 mg PO DAILY@1999 PENDING SALE TO [facility] Last Admin: 07/11/19 20:30 Dose: 4 mg Admin: 07/10/19 19:32 Dose: 4 mg Non-Formulary Medication (Sumatriptan Succinate [Imitrex]) 50 mg PO ASDIRECTED PRN PRN Reason: Headache Ondansetron HCl (Zofran) 4 mg IVPUSH Q6H PRN PRN Reason: Nausea/Vomiting Senna/Docusate Sodium (Senna Plus) 1 tab PO BID PENDING SALE TO [facility] Last Admin: 07/11/19 20:35 Dose: Not Given Admin: 07/11/19 08:38 Dose: 1 tab Admin: 07/10/19 20:07 Dose: Admin: 07/10/19 19:34 Dose: 1 tab Sodium Chloride (Saline Flush) 10 ml FLUSH ASDIRECTED PRN PRN Reason: Keep Vein Open Last Admin: 07/11/19 22:38 Dose: 10 ml Admin: 07/11/19 09:31 Dose: 10 ml Admin: 07/10/19 08:06 Dose: 10 ml Verapamil HCl (Calan Sr) 120 mg PO QAM PENDING SALE TO [facility] Last Admin: 07/12/19 05:24 Dose: 120 mg Admin: 07/11/19 05:09 Dose: 120 mg - Assessment Assessment (Free Text/Narrative):: POD#2 after bilateral mastectomy - Plan Plan (Free Text/Narrative):: Discharge to [facility] for temporary care during initial post op period Resume all normal meds - restart coumadin tomorrow at normal dose f/u in clinic early next week drains left in place for now.
[2019-07-12] MEDS: Docusate Sodium/Sennosides 50-8.6 MG Tab *PTOM PO SCH (08:41)
[2019-07-12 15:56] VITALS: BP 102/54; PULSE 63
== END 2019-07-12 11:12 ==
LOC: FB.SDS 07:03 → FB.MS 15:28 → FB.SDS 07-11 17:27 → FB.MS 07-11 17:28
PROVIDERS: ADMIT Surgery; ATTEND Surgery
DX: C50.912 Malignant neoplasm of unspecified site of left female breast (principal); D05.01 Lobular carcinoma in situ of right breast; I10 Essential (primary) hypertension; E78.00 Pure hypercholesterolemia, unspecified; E66.01 Morbid (severe) obesity due to excess calories; J43.9 Emphysema, unspecified; G89.29 Other chronic pain; M54.5 Low back pain; M19.90 Unspecified osteoarthritis, unspecified site; Z88.2 Allergy status to sulfonamides; Z17.0 Estrogen receptor positive status [ER+]; Z86.711 Personal history of pulmonary embolism; Z79.01 Long term (current) use of anticoagulants; Z79.82 Long term (current) use of aspirin; Z79.899 Other long term (current) drug therapy; Z68.41 Body mass index [BMI] 40.0-44.9, adult
CPT/HCPCS: 19303; 36415; 36600; 38525; 38900; 78800; 82803; 84132; 85025; 85027; 88305; 88307; 88341; 88342; 88360; 94150; 94640; 99218; 99224; A9270; A9541; G0378; J0690; J1100; J1170; J1885; J2250; J2310; J2405; J2704; J3010; J3490; J7120; Q9968; 00404-QZ; 88377; 94760; J7620-GY

== ENCOUNTER 2019-08-06 15:27 | Inpatient (IN) | payer MEDICARE, MEDICAID ==
--- NOTE | 2019-08-06 17:02 | EDM.PDOC ---
ED HPI GENERAL MEDICAL PROBLEM - General Chief Complaint: General Stated Complaint: WEAKNESS BACK PAIN Time Seen by Provider: 08/06/19 16:15 Source of Information: Reports: Patient, Family History Limitations: Reports: Altered Mental Status (confused) - History of Present Illness INITIAL COMMENTS - FREE TEXT/NARRATIVE: Deysi Duong comes into [facility] ED by EMS because of inability to ambulate. She was discharged from [facility] yesterday following recuperation for bilateral mastectomies for Breast CA. Her post op course was unremarkable, although issues involving confusional status, poor vision, and recurrent lack of ambulation seemed more pronounced today. Upon arrival, she is alert, disorientated to time, date, and circumstances of ED visit, but denies any focal neurologic issues. Her POA and former Senior Examiner Mgr accompanies her for collateral information. There is a PMH of lacunar infract per Head CT of ; concussion, and schizophrenia with prior suicide attempt. She sees Dr Mata Psychiatry at the [facility]. She has no guardian currently, and was considered a vulnerable adult. - Related Data Allergies Allergy/AdvReac Type Severity Reaction Status Date / Time Sulfa (Sulfonamide Allergy Rash Verified 08/06/19 15:49 Antibiotics) Home Meds: Home Meds Benztropine [Cogentin] 1 mg PO BID@05/09/14 [History] Cholecalciferol (Vitamin D3) [Vitamin D3] 1,000 unit PO QAM 05/09/14 [History] Escitalopram [Lexapro] 10 mg PO QAM 05/09/14 [History] Omeprazole [Prilosec] 20 mg PO BID@05/09/14 [History] atorvaSTATin Calcium [Atorvastatin Calcium] 20 mg PO DAILY@199905/09/14 [ History] lamoTRIgine [Lamictal] 100 mg PO QAM 05/09/14 [History] Acetaminophen 500 mg PO QID PRN 10/29/14 [History] Gabapentin 900 mg PO TID@,10/29/14 [History] Warfarin [Coumadin] 2.5 mg PO SUTUWETHSA@1500 10/30/14 [History] Warfarin [Coumadin] 5 mg PO MOFR@1500 04/29/15 [History] Diclofenac Sodium [Voltaren] 4 gm TOP BID 06/05/18 [History] Emollient [Vanicream] 1 applic TOP DAILY@0600 PRN 06/05/18 [History] Ferrous Sulfate 325 mg PO QAM 06/05/18 [History] Fluticasone Propionate [Flonase] 2 spray NASBOTH DAILY@0600 06/05/18 [History] SUMAtriptan Succinate [Imitrex] 50 mg PO ASDIRECTED PRN 06/05/18 [History] rOPINIRole HCl [Requip Xl] 4 mg PO DAILY@199906/05/18 [History] Multivitamin [Daily Gilmar] 1 tab PO QAM 08/23/18 [History] risperiDONE Microspheres [RisperiDAL Consta] 25 mg IM Q14D 08/23/18 [History] Albuterol [Ventolin HFA] 2 puff IH Q6H PRN 05/18/19 [History] Aspirin [Halfprin] 81 mg PO QAM 05/18/19 [History] Betamethasone Dipropionate [Diprolene 0.05% Lotion] 1 applic TP BID PRN [History] Calcium Citrate 600mg 300 mg PO BID@,05/18/19 [History] Clobetasol [Temovate 0.05% Oint] 1 applic TOP BID PRN 05/18/19 [History] Dextran 70/Hypromellose [Artificial Tears] 1 drop EYEBOTH DAILY PRN 05/18/19 [ History] Ketotifen Fumarate [Zaditor] 1 drop EYEBOTH DAILY PRN 05/18/19 [History] Magnesium 250 mg PO BID@05/18/19 [History] Nystatin [Nystatin Crm] 1 applic TOP BID PRN 05/18/19 [History] Verapamil HCl [Verapamil ER] 120 mg PO QAM 05/18/19 [History] Sennosides/Docusate Sodium [Senna Plus 8.6-50 mg Tablet] 1 each PO BID 07/09/19 [History] Hydrocodone/Acetaminophen [Hydrocodon-Acetaminophen 5-325] 1 - 2 tab PO Q4HR PRN #30 tablet 07/12/19 [Rx] Past Medical History HEENT History: Reports: Cataract Cardiovascular History: Reports: Afib, Blood Clots/VTE/DVT, Heart Murmur, High Cholesterol, Hypertension, SOB on Exertion Respiratory History: Reports: PE, Pneumothorax, SOB, Other (See Below) Other Respiratory History: HYPOXIA, uses O2 @ 2L/NC @ hs. 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 ALUMINUM History: Reports: Other (See Below) Other BATTERY CONTAINER TESTER ALUMINUM History: ABNORMAL PAP, Musculoskeletal History: Reports: Arthritis, Back Pain, Chronic, Fracture, Osteoarthritis Other Musculoskeletal History: hx R fx collarbone with surgery Neurological History: Reports: None, Concussion, CVA, Headaches, Chronic, Head Trauma, Migraines Other Neuro History: CVA x 2 Psychiatric History: Reports: Anxiety, Bipolar, Depression, Panic Attack, Schizophrenia, Suicide Attempt, Other (See Below) Other Psychiatric History: PARANOIA Endocrine/Metabolic History: Reports: Obesity/BMI 30+ Hematologic History: Reports: Anemia, Anticoagulation Therapy, Blood Transfusion (s) Immunologic History: Reports: None Oncologic (Cancer) History: Reports: Breast Dermatologic History: Reports: None - Infectious Disease History Infectious Disease History: Reports: Chicken Pox, Mumps - Past Surgical History HEENT Surgical History: Reports: Adenoidectomy, Cataract Surgery, Tonsillectomy Other HEENT Surgeries/Procedures: bilat cataract Cardiovascular Surgical History: Reports: None Respiratory Surgical History: Reports: Other (See Below) Other Respiratory Surgeries/Procedures: lung surgery following suicide attempt in past GI Surgical History: Reports: Cholecystectomy, Colonoscopy, EGD Female Surgical History: Reports: Breast Biopsy, Other (See Below) Other Female Surgeries/Procedures: bilateral mastectomy July 10 2019 Neurological Surgical History: Reports: Other (See Below) Other Neurological Surgeries/Procedures: BACK INJECTIONS Musculoskeletal Surgical History: Reports: Arthroscopic Knee, Arthroscopic Procedure, Other (See Below) Other Musculoskeletal Surgeries/Procedures:: RCLAVICAL SURGERY, LUMBAR SPINE SURGERY Oncologic Surgical History: Reports: None, Lumpectomy Dermatological Surgical History: Reports: None Social & Family History - Family History Family Medical History: Noncontributory - Tobacco Use Smoking Status *Q: Former Smoker Used Tobacco, but Quit: Yes Month/Year Tobacco Last Used: 4 years ago. Second Hand Smoke Exposure: No - Caffeine Use Caffeine Use: Reports: Coffee Other Caffeine Use: 3 cups a day, a can of soda everyday - Recreational Drug Use Recreational Drug Use: No - Living Situation & Occupation Occupation: Retired ED ROS GENERAL - Review of Systems Review Of Systems: Unable To Obtain (not a reliable historian;) Reason Not Obtained: not a reliable historian ED EXAM, GENERAL - Physical Exam Exam: See Below Exam Limited By: Altered Mental Status (confused) General Appearance: Alert, WD/WN, No Apparent Distress Eye Exam: Bilateral Eye: EOMI, Normal Inspection, PERRL, Vision Changes (unable to read newsprint) Ears: Normal External Exam, Hearing Loss Nose: Normal Inspection Throat/Mouth: Normal Inspection, Normal Oropharynx, No Airway Compromise Head: Normocephalic Neck: Normal Inspection, Supple, Non-Tender Respiratory/Chest: No Respiratory Distress, Lungs Clear, No Accessory Muscle Use Cardiovascular: Regular Rate, Rhythm, No JVD, No Murmur, Other (edema 1+ lower legs) GI/Abdominal: Normal Bowel Sounds, Soft, Non-Tender, No Organomegaly, No Distention, No Mass (Female) Exam: Deferred Rectal (Female) Exam: Deferred Back Exam: Normal Inspection Extremities: Pedal Edema, Other (generalized weakness, unable to stand alone, requres 2 to assist with standing to walker, deconditioning) Neurological: Alert, CN II-XII Intact, No Motor/Sensory Deficits, Inattentive, Confused, Memory Loss Remote Events, Memory Loss Recent Events Psychiatric: Flat Affect Skin Exam: Warm, Dry, Rash (legs) Lymphatic: No Adenopathy Course - Vital Signs Text/Narrative:: Following assessment, I obtained screeing labs for comparison with recent hospitalization, and these remain baseline. A 12 lead ekg was NSR. The UA was mildly abnormal, and a UC was set up. Attempts to ambulate were unsuccessful, owing to generalized deconditioning. She is incapable of taking care of herself , and would benefit from PT, SS consult for termite helper care. She will be admitted to [facility] and seen by Hospitalist in the am. Last Recorded V/S: Last Vital Signs Temp Pulse 78 08/06/19 15:35 Resp 17 08/06/19 15:35 BP 151/74 H 08/06/19 15:35 Pulse Ox 95 08/06/19 15:35 - Orders/Labs/Meds Orders: Active Orders 24 hr Category Date Time Status EKG Documentation Completion [RC] ASDIRECTED Care 08/06/19 16:32 Active CULTURE URINE [RM] Stat Lab 08/06/19 16:45 Received EKG 12 Lead [EK] Routine Ther 08/06/19 16:31 Ordered Labs: Laboratory Tests 08/06/19 08/06/19 08/06/19 Range/Units 16:45 16:45 16:45 WBC 5.0 (4.5-12.0) X10-3/uL RBC 4.35 (3.23-5.20) x10(6)uL Hgb 12.6 (11.5-15.5) g/dL Hct 39.2 (30.0-51.3) % MCV 90.1 (80-96) fL MCH 29.0 (27.7-33.6) pg MCHC 32.2 (32.2-35.4) g/dL RDW 14.2 (11.5-15.5) % Plt Count 296 (125-369) X10(3)uL MPV 7.9 (7.4-10.4) fL Neut % (Auto) 65.2 (46-82) % Lymph % (Auto) 21.6 (13-37) % Jackson % (Auto) 8.9 (4-12) % Eos % (Auto) 4 (1.0-5.0) % Baso % (Auto) 1 (0-2) % Neut # (Auto) 3.3 (1.6-8.3) # Lymph # (Auto) 1.1 (0.6-5.0) # Jackson # (Auto) 0.4 (0.0-1.3) # Eos # (Auto) 0.2 (0.0-0.8) # Baso # (Auto) 0.0 (0.0-0.2) # D-Dimer, Quantitative (0.0-0.59) mg/LFEU Sodium 142 (135-145) mmol/L Potassium 3.8 (3.5-5.3) mmol/L Chloride 104 (100-110) mmol/L Carbon Dioxide 32 (21-32) mmol/L BUN 8 (7-18) mg/dL Creatinine 0.8 (0.55-1.02) mg/dL Est Cr Clr Drug Dosing 54.89 mL/min Estimated GFR (MDRD) > 60 (>60) BUN/Creatinine Ratio 10.0 (9-20) Glucose 102 (80-116) mg/dL Lactic Acid (0.4-2.2) mmol/L Calcium 9.7 (8.6-10.2) mg/dL Total Bilirubin 0.4 (0.1-1.3) mg/dL AST 17 D (5-25) IU/L ALT 29 D (12-36) U/L Alkaline Phosphatase 119 H (56-112) IU/L Troponin I < 0.017 L (<0.017-0.056) ng/mL C-Reactive Protein (0.5-0.9) mg/dL Total Protein 6.7 (6.0-8.0) g/dL Albumin 3.3 (3.2-4.6) g/dL Globulin 3.4 g/dL Albumin/Globulin Ratio 1.0 Urine Color (YELLOW) Urine Appearance (CLEAR) Urine pH (5.0-6.5) Ur Specific [place] (1.010-1.025) Urine Protein (NEGATIVE) mg/dL Urine Glucose (UA) (NORMAL) mg/dL Urine Ketones (NEGATIVE) mg/dL Urine Occult Blood (NEGATIVE) Urine Nitrite (NEGATIVE) Urine Bilirubin (NEGATIVE) Urine Urobilinogen (NEGATIVE) mg/dL Ur Leukocyte Esterase (NEGATIVE) Urine RBC (0-5) Urine WBC (0-5) Ur Squamous Epith Cells (NS,R,O) Urine Bacteria (NS) 08/06/19 08/06/19 08/06/19 Range/Units 16:45 16:45 16:45 WBC (4.5-12.0) X10-3/uL RBC (3.23-5.20) x10(6)uL Hgb (11.5-15.5) g/dL Hct (30.0-51.3) % MCV (80-96) fL MCH (27.7-33.6) pg MCHC (32.2-35.4) g/dL RDW (11.5-15.5) % Plt Count (125-369) X10(3)uL MPV (7.4-10.4) fL Neut % (Auto) (46-82) % Lymph % (Auto) (13-37) % Jackson % (Auto) (4-12) % Eos % (Auto) (1.0-5.0) % Baso % (Auto) (0-2) % Neut # (Auto) (1.6-8.3) # Lymph # (Auto) (0.6-5.0) # Jackson # (Auto) (0.0-1.3) # Eos # (Auto) (0.0-0.8) # Baso # (Auto) (0.0-0.2) # D-Dimer, Quantitative 0.48 (0.0-0.59) mg/LFEU Sodium (135-145) mmol/L Potassium (3.5-5.3) mmol/L Chloride (100-110) mmol/L Carbon Dioxide (21-32) mmol/L BUN (7-18) mg/dL Creatinine (0.55-1.02) mg/dL Est Cr Clr Drug Dosing mL/min Estimated GFR (MDRD) (>60) BUN/Creatinine Ratio (9-20) Glucose (80-116) mg/dL Lactic Acid 1.0 (0.4-2.2) mmol/L Calcium (8.6-10.2) mg/dL Total Bilirubin (0.1-1.3) mg/dL AST (5-25) IU/L ALT (12-36) U/L Alkaline Phosphatase (56-112) IU/L Troponin I (<0.017-0.056) ng/mL C-Reactive Protein 0.7 (0.5-0.9) mg/dL Total Protein (6.0-8.0) g/dL Albumin (3.2-4.6) g/dL Globulin g/dL Albumin/Globulin Ratio Urine Color (YELLOW) Urine Appearance (CLEAR) Urine pH (5.0-6.5) Ur Specific [place] (1.010-1.025) Urine Protein (NEGATIVE) mg/dL Urine Glucose (UA) (NORMAL) mg/dL Urine Ketones (NEGATIVE) mg/dL Urine Occult Blood (NEGATIVE) Urine Nitrite (NEGATIVE) Urine Bilirubin (NEGATIVE) Urine Urobilinogen (NEGATIVE) mg/dL Ur Leukocyte Esterase (NEGATIVE) Urine RBC (0-5) Urine WBC (0-5) Ur Squamous Epith Cells (NS,R,O) Urine Bacteria (NS) 08/06/ Range/Units 17:18 WBC (4.5-12.0) X10-3/uL RBC (3.23-5.20) x10(6)uL Hgb (11.5-15.5) g/dL Hct (30.0-51.3) % MCV (80-96) fL MCH (27.7-33.6) pg MCHC (32.2-35.4) g/dL RDW (11.5-15.5) % Plt Count (125-369) X10(3)uL MPV (7.4-10.4) fL Neut % (Auto) (46-82) % Lymph % (Auto) (13-37) % Jackson % (Auto) (4-12) % Eos % (Auto) (1.0-5.0) % Baso % (Auto) (0-2) % Neut # (Auto) (1.6-8.3) # Lymph # (Auto) (0.6-5.0) # Jackson # (Auto) (0.0-1.3) # Eos # (Auto) (0.0-0.8) # Baso # (Auto) (0.0-0.2) # D-Dimer, Quantitative (0.0-0.59) mg/LFEU Sodium (135-145) mmol/L Potassium (3.5-5.3) mmol/L Chloride (100-110) mmol/L Carbon Dioxide (21-32) mmol/L BUN (7-18) mg/dL Creatinine (0.55-1.02) mg/dL Est Cr Clr Drug Dosing mL/min Estimated GFR (MDRD) (>60) BUN/Creatinine Ratio (9-20) Glucose (80-116) mg/dL Lactic Acid (0.4-2.2) mmol/L Calcium (8.6-10.2) mg/dL Total Bilirubin (0.1-1.3) mg/dL AST (5-25) IU/L ALT (12-36) U/L Alkaline Phosphatase (56-112) IU/L Troponin I (<0.017-0.056) ng/mL C-Reactive Protein (0.5-0.9) mg/dL Total Protein (6.0-8.0) g/dL Albumin (3.2-4.6) g/dL Globulin g/dL Albumin/Globulin Ratio Urine Color Yellow (YELLOW) Urine Appearance Clear (CLEAR) Urine pH 7.0 H (5.0-6.5) Ur Specific [place] 1.010 (1.010-1.025) Urine Protein Negative (NEGATIVE) mg/dL Urine Glucose (UA) Normal (NORMAL) mg/dL Urine Ketones 15 H (NEGATIVE) mg/dL Urine Occult Blood Negative (NEGATIVE) Urine Nitrite Negative (NEGATIVE) Urine Bilirubin Negative (NEGATIVE) Urine Urobilinogen Normal (NEGATIVE) mg/dL Ur Leukocyte Esterase Moderate H (NEGATIVE) Urine RBC 0-5 (0-5) Urine WBC 5-10 H (0-5) Ur Squamous Epith Cells Few H (NS,R,O) Urine Bacteria Moderate H (NS) Departure - Departure Time of Disposition: 18:48 Disposition: Refer to Observation Condition: Fair Clinical Impression: State, confusional, subacute - Discharge Information *PRESCRIPTION DRUG MONITORING PROGRAM REVIEWED*: Not Applicable *COPY OF PRESCRIPTION DRUG MONITORING REPORT IN PATIENT SERENA: Not Applicable Referrals: Nilay Carter MD [Primary Care Provider] - Forms: ED Department Discharge - Problem List & Annotations (1) State, confusional, subacute SNOMED Code(s): 027213129 Code(s): F05 - DELIRIUM DUE TO KNOWN PHYSIOLOGICAL CONDITION Status: Acute Current Visit: Yes Annotation/Comment:: Deysi needs further assessment and consult for termite helper care considerations. - Problem List Review Problem List Initiated/Reviewed/Updated: Yes - My Orders Last 24 Hours: My Active Orders 08/06/19 16:31 EKG 12 Lead [EK] Routine 08/06/19 16:32 EKG Documentation Completion [RC] ASDIRECTED 08/06/19 16:45 CULTURE URINE [RM] Stat - Assessment/Plan Last 24 Hours: My Active Orders 08/06/19 16:31 EKG 12 Lead [EK] Routine 08/06/19 16:32 EKG Documentation Completion [RC] ASDIRECTED 08/06/19 16:45 CULTURE URINE [RM] Stat Plan: Hospitalist to see in the am.
[2019-08-07] MEDS: Acetaminophen 325 MG Tab PO PRN ×2 (02:00→23:07)
[2019-08-07] MEDS ORDERED: rOPINIRole 1 MG Tab ONE ×2 (02:42→02:50)
[2019-08-07] MEDS ORDERED: rOPINIRole 1 MG Tab PO ONE (02:50)
--- NOTE | 2019-08-07 08:36 | PCM.HP.2 ---
H&P History of Present Illness - General Date of Service: 08/07/19 Admit Problem/Dx: Admission Diagnosis/Problem Admission Diagnosis/Problem Confusional state Source of Information: Patient, Old Records, RN Notes Reviewed History Limitations: Reports: Altered Mental Status - History of Present Illness Initial Comments - Free Text/Narative: Deysi is a 74-year-old female who was brought to the ER because of confusion. She was disoriented and also was having difficulty with ambulation. She was just discharged from the [facility] home after a postoperative care of bilateral mastectomies done at the end of last month by Dr Randle. At home, she was noted to be disoriented and having increasingly difficult ambulation although no focal neurologic deficits have been reported. She has a extensive psychiatric history that includes Bipolar Disorder,schizophrenia,Anxiety,Panic attacks, depression, and prior suicide attempt. She is considered a vulnerable adult because she lives alone and have multiple medical problems,and unable to make decisions independently. This morning she complains of mild headache that is frontal. She denies any dysuria or frequency of urination fever or chills. No reports of any falls or head trauma. She did have a CT of the head in December that showed a lacunar infarct. - Related Data Allergies/Adverse Reactions: Allergies Allergy/AdvReac Type Severity Reaction Status Date / Time Sulfa (Sulfonamide Allergy Rash Verified 08/06/19 19:22 Antibiotics) Home Medications: Home Meds Benztropine [Cogentin] 1 mg PO BID 05/09/14 [History] Cholecalciferol (Vitamin D3) [Vitamin D3] 1,000 unit PO DAILY 05/09/14 [History] Escitalopram [Lexapro] 10 mg PO DAILY 05/09/14 [History] Omeprazole [Prilosec] 20 mg PO BIDAC 05/09/14 [History] atorvaSTATin Calcium [Atorvastatin Calcium] 20 mg PO BEDTIME 05/09/14 [History] lamoTRIgine [Lamictal] 100 mg PO DAILY 05/09/14 [History] Gabapentin 900 mg PO TID 10/29/14 [History] Warfarin [Coumadin] 2.5 mg PO SUTUWETHSA 10/30/14 [History] Warfarin [Coumadin] 5 mg PO MOFR 04/29/15 [History] Diclofenac Sodium [Voltaren] 4 gm TOP BID 06/05/18 [History] Ferrous Sulfate 325 mg PO DAILY 06/05/18 [History] Fluticasone Propionate [Flonase] 2 spray NASBOTH DAILY 06/05/18 [History] SUMAtriptan Succinate [Imitrex] 50 mg PO ASDIRECTED PRN 06/05/18 [History] rOPINIRole HCl [Requip Xl] 4 mg PO DAILY@199906/05/18 [History] Multivitamin [Daily Gilmar] 1 tab PO DAILY 08/23/18 [History] risperiDONE Microspheres [RisperiDAL Consta] 25 mg IM Q14D 08/23/18 [History] Aspirin [Halfprin] 81 mg PO DAILY 05/18/19 [History] Magnesium 250 mg PO BID 05/18/19 [History] Verapamil HCl [Verapamil ER] 120 mg PO DAILY 05/18/19 [History] Sennosides/Docusate Sodium [Senna Plus 8.6-50 mg Tablet] 1 each PO BID 07/09/19 [History] Calcium Carbonate/Vitamin D3 [Calcium 500-Vit D3 200 Caplet] 1 tab PO BID [History] traZODone HCl [Trazodone HCl] 50 mg PO BEDTIME 08/06/19 [History] Anastrozole [Arimidex] 1 mg PO BEDTIME 08/07/19 [History] Divalproex Sodium [Depakote ER] 250 mg PO BID 08/07/19 [History] Past Medical History HEENT History: Reports: Cataract Cardiovascular History: Reports: Afib, Blood Clots/VTE/DVT, Heart Murmur, High Cholesterol, Hypertension, SOB on Exertion Respiratory History: Reports: PE, Pneumothorax, SOB, Other (See Below) Other Respiratory History: HYPOXIA, uses O2 @ 2L/NC @ hs. Gastrointestinal History: Reports: Colon Polyp, Diverticulosis, GERD Genitourinary History: Reports: None TOOL INSPECTOR History: Reports: Other (See Below) Other OB/BYN History: ABNORMAL PAP, Musculoskeletal History: Reports: Arthritis, Back Pain, Chronic, Fracture, Osteoarthritis Other Musculoskeletal History: hx R fx collarbone with surgery Neurological History: Reports: Concussion, CVA, Headaches, Chronic, Head Trauma , Migraines Other Neuro History: CVA x 2 Psychiatric History: Reports: Anxiety, Bipolar, Depression, Panic Attack, Schizophrenia, Suicide Attempt, Other (See Below) Other Psychiatric History: PARANOIA Endocrine/Metabolic History: Reports: Obesity/BMI 30+ Hematologic History: Reports: Anemia, Anticoagulation Therapy, Blood Transfusion (s) Immunologic History: Reports: None Oncologic (Cancer) History: Reports: Breast Dermatologic History: Reports: None - Infectious Disease History Infectious Disease History: Reports: Chicken Pox, Mumps - Past Surgical History HEENT Surgical History: Reports: Adenoidectomy, Cataract Surgery, Tonsillectomy Other HEENT Surgeries/Procedures: bilat cataract Cardiovascular Surgical History: Reports: None Respiratory Surgical History: Reports: Other (See Below) Other Respiratory Surgeries/Procedures: lung surgery following suicide attempt in past GI Surgical History: Reports: Cholecystectomy, Colonoscopy, EGD Female Surgical History: Reports: Breast Biopsy, Other (See Below) Other Female Surgeries/Procedures: bilateral mastectomy July 10 2019 Neurological Surgical History: Reports: Other (See Below) Other Neurological Surgeries/Procedures: BACK INJECTIONS Musculoskeletal Surgical History: Reports: Arthroscopic Knee, Arthroscopic Procedure, Other (See Below) Other Musculoskeletal Surgeries/Procedures:: RCLAVICAL SURGERY, LUMBAR SPINE SURGERY Oncologic Surgical History: Reports: None, Lumpectomy Dermatological Surgical History: Reports: None Social & Family History - Family History Family Medical History: Noncontributory - Tobacco Use Smoking Status *Q: Former Smoker Used Tobacco, but Quit: Yes Month/Year Tobacco Last Used: 2014 Second Hand Smoke Exposure: No - Caffeine Use Caffeine Use: Reports: Coffee Other Caffeine Use: 3 cups a day, a can of soda everyday - Recreational Drug Use Recreational Drug Use: No - Living Situation & Occupation Occupation: Retired H&P Review of Systems - Review of Systems: Review Of Systems: Comprehensive ROS is negative, except as noted in HPI. Exam - Exam Exam: See Below - Vital Signs Vital Signs: Last Vital Signs Temp 98 F 08/07/19 04:00 Pulse 84 08/07/19 04:00 Resp 18 08/07/19 04:00 BP 128/82 08/07/19 04:00 Pulse Ox 95 08/07/19 04:00 Weight: 103.901 kg - Exam General: Alert, Cooperative HEENT: PERRLA Neck: Supple, Trachea Midline Lungs: Clear to Auscultation Cardiovascular: Regular Rate, Systolic Murmur GI/Abdominal Exam: Normal Bowel Sounds, Non-Tender Rectal (Female) Exam: Deferred Back Exam: Normal Inspection Extremities: Normal Inspection Skin: Warm, Dry Neurological: Cranial Nerves Intact Neuro Extensive - Mental Status: Disorientation to Place, Disorientation to Time , Inattentive. No: Oriented x3, Memory Intact Psychiatric: Alert, Depressed - Patient Data Lab Results Last 24 hrs: Laboratory Results - last 24 hr 08/06/19 08/06/19 08/06/19 Range/Units 16:45 16:45 16:45 WBC 5.0 (4.5-12.0) X10-3/uL RBC 4.35 (3.23-5.20) x10(6)uL Hgb 12.6 (11.5-15.5) g/dL Hct 39.2 (30.0-51.3) % MCV 90.1 (80-96) fL MCH 29.0 (27.7-33.6) pg MCHC 32.2 (32.2-35.4) g/dL RDW 14.2 (11.5-15.5) % Plt Count 296 (125-369) X10(3)uL MPV 7.9 (7.4-10.4) fL Neut % (Auto) 65.2 (46-82) % Lymph % (Auto) 21.6 (13-37) % Morgan % (Auto) 8.9 (4-12) % Eos % (Auto) 4 (1.0-5.0) % Baso % (Auto) 1 (0-2) % Neut # (Auto) 3.3 (1.6-8.3) # Lymph # (Auto) 1.1 (0.6-5.0) # Morgan # (Auto) 0.4 (0.0-1.3) # Eos # (Auto) 0.2 (0.0-0.8) # Baso # (Auto) 0.0 (0.0-0.2) # PT (8.7-11.1) INR (0.89-1.13) D-Dimer, Quantitative (0.0-0.59) mg/LFEU Sodium 142 (135-145) mmol/L Potassium 3.8 (3.5-5.3) mmol/L Chloride 104 (100-110) mmol/L Carbon Dioxide 32 (21-32) mmol/L BUN 8 (7-18) mg/dL Creatinine 0.8 (0.55-1.02) mg/dL Est Cr Clr Drug Dosing 54.89 mL/min Estimated GFR (MDRD) > 60 (>60) BUN/Creatinine Ratio 10.0 (9-20) Glucose 102 (80-116) mg/dL Lactic Acid (0.4-2.2) mmol/L Calcium 9.7 (8.6-10.2) mg/dL Total Bilirubin 0.4 (0.1-1.3) mg/dL AST 17 D (5-25) IU/L ALT 29 D (12-36) U/L Alkaline Phosphatase 119 H (56-112) IU/L Troponin I < 0.017 L (<0.017-0.056) ng/mL C-Reactive Protein (0.5-0.9) mg/dL Total Protein 6.7 (6.0-8.0) g/dL Albumin 3.3 (3.2-4.6) g/dL Globulin 3.4 g/dL Albumin/Globulin Ratio 1.0 Urine Color (YELLOW) Urine Appearance (CLEAR) Urine pH (5.0-6.5) Ur Specific Willis (1.010-1.025) Urine Protein (NEGATIVE) mg/dL Urine Glucose (UA) (NORMAL) mg/dL Urine Ketones (NEGATIVE) mg/dL Urine Occult Blood (NEGATIVE) Urine Nitrite (NEGATIVE) Urine Bilirubin (NEGATIVE) Urine Urobilinogen (NEGATIVE) mg/dL Ur Leukocyte Esterase (NEGATIVE) Urine RBC (0-5) Urine WBC (0-5) Ur Squamous Epith Cells (NS,R,O) Urine Bacteria (NS) 08/06/19 08/06/19 08/06/19 Range/Units 16:45 16:45 16:45 WBC (4.5-12.0) X10-3/uL RBC (3.23-5.20) x10(6)uL Hgb (11.5-15.5) g/dL Hct (30.0-51.3) % MCV (80-96) fL MCH (27.7-33.6) pg MCHC (32.2-35.4) g/dL RDW (11.5-15.5) % Plt Count (125-369) X10(3)uL MPV (7.4-10.4) fL Neut % (Auto) (46-82) % Lymph % (Auto) (13-37) % Morgan % (Auto) (4-12) % Eos % (Auto) (1.0-5.0) % Baso % (Auto) (0-2) % Neut # (Auto) (1.6-8.3) # Lymph # (Auto) (0.6-5.0) # Morgan # (Auto) (0.0-1.3) # Eos # (Auto) (0.0-0.8) # Baso # (Auto) (0.0-0.2) # PT (8.7-11.1) INR (0.89-1.13) D-Dimer, Quantitative 0.48 (0.0-0.59) mg/LFEU Sodium (135-145) mmol/L Potassium (3.5-5.3) mmol/L Chloride (100-110) mmol/L Carbon Dioxide (21-32) mmol/L BUN (7-18) mg/dL Creatinine (0.55-1.02) mg/dL Est Cr Clr Drug Dosing mL/min Estimated GFR (MDRD) (>60) BUN/Creatinine Ratio (9-20) Glucose (80-116) mg/dL Lactic Acid 1.0 (0.4-2.2) mmol/L Calcium (8.6-10.2) mg/dL Total Bilirubin (0.1-1.3) mg/dL AST (5-25) IU/L ALT (12-36) U/L Alkaline Phosphatase (56-112) IU/L Troponin I (<0.017-0.056) ng/mL C-Reactive Protein 0.7 (0.5-0.9) mg/dL Total Protein (6.0-8.0) g/dL Albumin (3.2-4.6) g/dL Globulin g/dL Albumin/Globulin Ratio Urine Color (YELLOW) Urine Appearance (CLEAR) Urine pH (5.0-6.5) Ur Specific Willis (1.010-1.025) Urine Protein (NEGATIVE) mg/dL Urine Glucose (UA) (NORMAL) mg/dL Urine Ketones (NEGATIVE) mg/dL Urine Occult Blood (NEGATIVE) Urine Nitrite (NEGATIVE) Urine Bilirubin (NEGATIVE) Urine Urobilinogen (NEGATIVE) mg/dL Ur Leukocyte Esterase (NEGATIVE) Urine RBC (0-5) Urine WBC (0-5) Ur Squamous Epith Cells (NS,R,O) Urine Bacteria (NS) 08/06/19 08/07/19 Range/Units 17:18 06:25 WBC (4.5-12.0) X10-3/uL RBC (3.23-5.20) x10(6)uL Hgb (11.5-15.5) g/dL Hct (30.0-51.3) % MCV (80-96) fL MCH (27.7-33.6) pg MCHC (32.2-35.4) g/dL RDW (11.5-15.5) % Plt Count (125-369) X10(3)uL MPV (7.4-10.4) fL Neut % (Auto) (46-82) % Lymph % (Auto) (13-37) % Morgan % (Auto) (4-12) % Eos % (Auto) (1.0-5.0) % Baso % (Auto) (0-2) % Neut # (Auto) (1.6-8.3) # Lymph # (Auto) (0.6-5.0) # Morgan # (Auto) (0.0-1.3) # Eos # (Auto) (0.0-0.8) # Baso # (Auto) (0.0-0.2) # PT 24.0 H (8.7-11.1) INR 2.49 H (0.89-1.13) D-Dimer, Quantitative (0.0-0.59) mg/LFEU Sodium (135-145) mmol/L Potassium (3.5-5.3) mmol/L Chloride (100-110) mmol/L Carbon Dioxide (21-32) mmol/L BUN (7-18) mg/dL Creatinine (0.55-1.02) mg/dL Est Cr Clr Drug Dosing mL/min Estimated GFR (MDRD) (>60) BUN/Creatinine Ratio (9-20) Glucose (80-116) mg/dL Lactic Acid (0.4-2.2) mmol/L Calcium (8.6-10.2) mg/dL Total Bilirubin (0.1-1.3) mg/dL AST (5-25) IU/L ALT (12-36) U/L Alkaline Phosphatase (56-112) IU/L Troponin I (<0.017-0.056) ng/mL C-Reactive Protein (0.5-0.9) mg/dL Total Protein (6.0-8.0) g/dL Albumin (3.2-4.6) g/dL Globulin g/dL Albumin/Globulin Ratio Urine Color Yellow (YELLOW) Urine Appearance Clear (CLEAR) Urine pH 7.0 H (5.0-6.5) Ur Specific Willis 1.010 (1.010-1.025) Urine Protein Negative (NEGATIVE) mg/dL Urine Glucose (UA) Normal (NORMAL) mg/dL Urine Ketones 15 H (NEGATIVE) mg/dL Urine Occult Blood Negative (NEGATIVE) Urine Nitrite Negative (NEGATIVE) Urine Bilirubin Negative (NEGATIVE) Urine Urobilinogen Normal (NEGATIVE) mg/dL Ur Leukocyte Esterase Moderate H (NEGATIVE) Urine RBC 0-5 (0-5) Urine WBC 5-10 H (0-5) Ur Squamous Epith Cells Few H (NS,R,O) Urine Bacteria Moderate H (NS) Result Diagrams: 08/06/19 16:45 08/06/19 16:45 - Problem List (1) Ambulatory dysfunction SNOMED Code(s): 591592994 ICD Code: R26.2 - DIFFICULTY IN WALKING, NOT ELSEWHERE CLASSIFIED Status: Acute Current Visit: Yes (2) State, confusional, subacute SNOMED Code(s): 227274407 ICD Code: F05 - DELIRIUM DUE TO KNOWN PHYSIOLOGICAL CONDITION Status: Acute Current Visit: Yes Problem Details: Deysi needs further assessment and consult for ocean transportation intermediary care considerations. (3) Bacteria in urine SNOMED Code(s): 39561948 ICD Code: R82.71 - BACTERIURIA Status: Acute Current Visit: Yes (4) Polypharmacy SNOMED Code(s): 244126595 ICD Code: Z79.899 - OTHER DIESEL FITTER MECHANIC (CURRENT) DRUG THERAPY Status: Chronic Current Visit: Yes (5) retirement (current) use of anticoagulants SNOMED Code(s): 218950270 ICD Code: Z79.01 - DIESEL FITTER MECHANIC (CURRENT) USE OF ANTICOAGULANTS Status: Chronic Current Visit: Yes (6) Chronic headache SNOMED Code(s): 909202003 ICD Code: R51 - HEADACHE Status: Chronic Current Visit: No Qualifiers: Intractability: not intractable (7) History of progressive weakness SNOMED Code(s): 013061793 ICD Code: Z87.898 - PERSONAL HISTORY OF OTHER SPECIFIED CONDITIONS Status: Acute Current Visit: No (8) Hypertension SNOMED Code(s): 21295806 ICD Code: I10 - ESSENTIAL (PRIMARY) HYPERTENSION Status: Chronic Current Visit: No Problem Details: Continue home medications. Qualifiers: Hypertension type: essential hypertension Qualified Code(s): I10 - Essential (primary) hypertension (9) Palliative care status SNOMED Code(s): 143102857 ICD Code: Z51.5 - ENCOUNTER FOR PALLIATIVE CARE Status: Acute Current Visit: No (10) Schizoaffective disorder SNOMED Code(s): 22279116 ICD Code: F25.9 - SCHIZOAFFECTIVE DISORDER, UNSPECIFIED Status: Acute Current Visit: No Problem Details: Continue home medications. Problem List Initiated/Reviewed/Updated: Yes Orders Last 24hrs: Active Orders 24 hr Category Date Time Status Patient Status [ADT] Routine ADT 08/06/19 19:21 Active Bedrest Bedside Commode [RC] ASDIRECTED Care 08/06/19 19:21 Active Height and Weight [RC] 06 Care 08/06/19 19:21 Active Oxygen Therapy [RC] PRN Care 08/06/19 19:21 Active Up to Chair [RC] ASDIRECTED Care 08/06/19 19:21 Active VTE/DVT Education [RC] Per Unit Routine Care 08/06/19 19:21 Active Vital Signs [RC] 00,04,08,12,16,20 Care 08/06/19 19:21 Active Consult to Case Management/Instrument Inspector [CONS] Cons 08/06/19 19:21 Active Routine OT Evaluation and Treatment [CONS] Routine Cons 08/06/19 19:21 Active PT Evaluation and Treatment [CONS] Routine Cons 08/06/19 19:21 Active CULTURE URINE [RM] Stat Lab 08/06/19 16:45 Received Acetaminophen [Tylenol] Med 08/07/19 01:51 Active 650 mg PO Q4H PRN Resuscitation Status Routine Resus Stat 08/06/19 18:56 Ordered EKG 12 Lead [EK] Routine Ther 08/06/19 16:31 Stop Req Medication Orders Acetaminophen (Tylenol) 650 mg PO Q4H PRN PRN Reason: Headache/Pain Last Admin: 08/07/19 02:00 Dose: 650 mg Assessment/Plan Comment:: I will admit Deysi as an inpatient evaluate the reason for weakness, confusion. It is possible that it's due to medication interaction or side effects. I will also consider social and political studies professor consultation and along with physical and occupational therapy to further evaluate her needs. I will resume home medications,but hold Depakote and decrease the dose for Gabapentin. I feel she has no need for treatment for UTI at this time due to lack of symptoms. - Mortality Measure Prognosis:: Poor
[2019-08-07] MEDS ORDERED: Diclofenac Sodium 1% Gel 100 GM Tube TOP SCH (09:00)
[2019-08-07] MEDS ORDERED: SUMAtriptan 50 MG Tab PO PRN (09:00)
[2019-08-07] MEDS ORDERED: Multivitamin Tab PO SCH (09:00)
[2019-08-07] MEDS ORDERED: Warfarin Sliding Scale PO SCH (09:45)
[2019-08-07] MEDS ORDERED: Gabapentin 300 MG Cap PO SCH (09:46)
[2019-08-07] MEDS: Verapamil 120 MG Tab.ER PO SCH (10:03)
[2019-08-07] MEDS: Benztropine 1 MG Tab PO SCH ×2 (10:04→18:57)
[2019-08-07] MEDS: Ferrous Sulfate 325 MG Tab PO SCH (10:04)
[2019-08-07] MEDS: Fluticasone Propionate Nasal Spray 16 GM Bottle NASBOTH SCH (10:04)
[2019-08-07] MEDS: lamoTRIgine 100 MG Tab PO SCH (10:05)
[2019-08-07] MEDS: Escitalopram 10 MG Tab PO SCH (10:05)
[2019-08-07] MEDS: Aspirin 81 MG Tab.EC PO SCH (10:05)
[2019-08-07] MEDS: Pantoprazole 40 MG Tab.CR PO SCH ×2 (10:05→16:09)
[2019-08-07] MEDS: Magnesium Oxide 400 MG Tab PO SCH ×2 (10:06→20:23)
[2019-08-07] MEDS: Gabapentin 300 MG Cap PO SCH ×3 (10:08→20:26)
--- NOTE | 2019-08-07 13:20 | CT ---
INDICATION: Confusion, falls. CT HEAD WITHOUT CONTRAST: Spiral 2.5 mm axial sections were obtained through the brain without contrast with sagittal and coronal reconstructions, 08/07/19, and compared with 12/27/18. Total exam DLP = 1,322.30 mGy-cm. There is a small retention cyst in a right ethmoidal air cell previously present. Very minimal thickening of the lining of the base of the right frontal air cell is noted, also appearing to be present previously. Paranasal sinuses and mastoid air cells were otherwise well-aerated. No definite cranial abnormality was identified. The orbits appear to be intact. No shift of midline structures was seen. Ventricles are prominent, compatible with central atrophy, similar to the previous study. The cortical sulci in the temporal lobes are somewhat prominent. This suggests a degree of atrophy in the temporal lobes. Bilateral lacunar infarcts are noted with little change. Minimal white matter changes are suggestive of a mild degree of microvascular disease. There are some calcifications noted in the internal carotid arteries, present previously. No bleeding site, hematoma, or other abnormal areas of density were identified. IMPRESSION: 1. No definite acute intracranial abnormality with stable appearance compared with 12/27/18. 2. Mild central atrophy. 3. Basal ganglia lacunar infarcts of small size again noted. 4. Internal carotid artery calcification is again seen. MTDD
[2019-08-07] MEDS ORDERED: Warfarin 2.5 MG Tab PO SCH (16:00)
[2019-08-07] MEDS ORDERED: traZODone 50 MG Tab PO SCH (21:00)
[2019-08-07] MEDS ORDERED: atorvaSTATin 20 MG Tab PO SCH (21:00)
[2019-08-07] MEDS ORDERED: ROPINIROLE HCL 4 MG PO SCH (21:00)
[2019-08-07] MEDS ORDERED: Anastrozole 1 MG Tab PO SCH (21:00)
[2019-08-08] MEDS: Pantoprazole 40 MG Tab.CR PO SCH (05:51)
[2019-08-08] MEDS: Verapamil 120 MG Tab.ER PO SCH (08:28)
[2019-08-08] MEDS: Escitalopram 10 MG Tab PO SCH (08:28)
[2019-08-08] MEDS: Aspirin 81 MG Tab.EC PO SCH (08:28)
[2019-08-08] MEDS: Ferrous Sulfate 325 MG Tab PO SCH (08:28)
[2019-08-08] MEDS: Fluticasone Propionate Nasal Spray 16 GM Bottle NASBOTH SCH (08:28)
[2019-08-08] MEDS: lamoTRIgine 100 MG Tab PO SCH (08:28)
[2019-08-08] MEDS: Gabapentin 300 MG Cap PO SCH (08:28)
[2019-08-08] MEDS: Magnesium Oxide 400 MG Tab PO SCH (08:28)
[2019-08-08] MEDS: Benztropine 1 MG Tab PO SCH (08:28)
[2019-08-08 08:30] VITALS: BP 147/75; PULSE 81
--- NOTE | 2019-08-08 17:05 | DISCH ---
DISCHARGE DATE: 08/08/2019 REASON FOR ADMISSION: 1. Generalized weakness. 2. Frequent falls. 3. Altered mental status. 4. Ambulatory dysfunction. 5. Chronic headache. 6. Polypharmacy. BRIEF HISTORY AND HOSPITAL COURSE: This is a 74-year-old female who was admitted after she was found confused, weak and unable to ambulate. She had just left the [facility] after recovery from bilateral mastectomy. She had recently started Depakote and is also on anticonvulsants. It is thought that medicine might have caused her symptoms. Upon admission, Depakote was discontinued and gabapentin was reduced to 300 mg t.i.d. She improved markedly and all her lab work including a CT of the head was done was negative. She is ready to go back to the [facility] today because she needs support with Physical Therapy and Occupational Therapy nursing. The only change made to the medications was discontinuation of Depakote and the reduction of the dose of gabapentin. The rest of her home medications were continued as previously scheduled. I spent more than 35 minutes in the discharge of the patient. /[id number] ALEXEI/CRISELDA
[2019-08-10] MEDS ORDERED: Warfarin 5 MG Tab PO SCH (16:00)
[2019-08-20] MEDS ORDERED: RISPERIDONE MICROSPHERES 25 MG IM SCH (09:00)
== END 2019-08-08 11:10 | disposition home health service (06) | DRG 884 ==
LOC: FB.ED 15:27 → FB.MS 19:10 → OBSVTOIN 08-07 08:41
PROVIDERS: ADMIT Family Medicine; ATTEND Family Medicine
DX: R40.4 Transient alteration of awareness (principal); F05 Delirium due to known physiological condition; Z68.41 Body mass index [BMI] 40.0-44.9, adult; T42.6X5A Adverse effect of other antiepileptic and sedative-hypnotic drugs, initial encounter; I48.91 Unspecified atrial fibrillation; R51 Headache; Z53.1 Procedure and treatment not carried out because of patient's decision for reasons of belief and group pressure; E78.00 Pure hypercholesterolemia, unspecified; I10 Essential (primary) hypertension; F25.9 Schizoaffective disorder, unspecified; K21.9 Gastro-esophageal reflux disease without esophagitis; M19.90 Unspecified osteoarthritis, unspecified site; G89.29 Other chronic pain; Z51.5 Encounter for palliative care; M54.9 Dorsalgia, unspecified; G43.909 Migraine, unspecified, not intractable, without status migrainosus; F31.9 Bipolar disorder, unspecified; F41.9 Anxiety disorder, unspecified; F20.9 Schizophrenia, unspecified; E66.9 Obesity, unspecified; D64.9 Anemia, unspecified; R26.2 Difficulty in walking, not elsewhere classified; R82.71 Bacteriuria; F32.9 Major depressive disorder, single episode, unspecified; Z98.41 Cataract extraction status, right eye; Z98.42 Cataract extraction status, left eye; Z87.891 Personal history of nicotine dependence; Z85.3 Personal history of malignant neoplasm of breast; Z79.899 Other long term (current) drug therapy; Z86.718 Personal history of other venous thrombosis and embolism; Z79.82 Long term (current) use of aspirin; Z88.2 Allergy status to sulfonamides; Z90.13 Acquired absence of bilateral breasts and nipples; Z79.01 Long term (current) use of anticoagulants; Z86.711 Personal history of pulmonary embolism; Z86.010 Personal history of colon polyps; Z86.73 Personal history of transient ischemic attack (TIA), and cerebral infarction without residual deficits
CPT/HCPCS: 36415; 70450; 80053; 81001; 83605; 84484; 85025; 85379; 85610; 86140; 87086; 87088; 87186; 93005; 94760; 97161-GP; 97165-GO; 97530-GP; 99285-25; A9270-GY; G0378

== ENCOUNTER 2020-09-29 15:51 | Emergency (ER) | payer MEDICARE, MEDICAID ==
[2020-09-29 16:49] LABS: PCO2 ARTERIAL,POC 49 mmHg (35-48); PH ARTERIAL,POC 7.4 pH (7.35-7.45)
[2020-09-29 16:50] LABS: PO2 ARTERIAL,POC 117 mmHg (83-108)
--- NOTE | 2020-09-29 17:20 | CR ---
INDICATION: Short of breath. CHEST ONE VIEW: AP upright portable view of the chest was obtained 09/29/20 and compared with 05/18/19. There was again noted exogenous obesity. The heart appears enlarged emphasized by poor inspiration. The aorta is tortuous with calcification in the arch. The upper lung field pulmonary vasculature and interstitial markings are somewhat prominent raising question of a mild or early CHF and mild interstitial lung edema. No gross consolidating pneumonia or effusion was seen. IMPRESSION: 1. ASHD, cardiomegaly, possible mild CHF and interstitial lung edema. 2. No definite pneumonia. 3. Exogenous obesity. MTDD
--- NOTE | 2020-09-29 17:26 | CR ---
INDICATION: Right upper quadrant pain. ABDOMEN ONE VIEW SUPINE: Two supine views of the abdomen were obtained excluding the lower pelvis. Parenchymal changes may be present at the lung bases such as minimal patchy pneumonia and possibly some atelectasis, but should be correlated clinically. Clips compatible with cholecystectomy are noted in the right upper quadrant. The pattern of gas and feces is fairly nonspecific without evidence of gross free air or definite mechanical obstructive process. No definite organomegaly or mass lesions were identified. No nonvascular pathologic calcifications were seen. Moderate dextroconvex scoliosis of the middle lumbar spine is noted with degenerative disk disease and hypertrophic degenerative changes suggested at multiple lumbar levels. IMPRESSION: Nonacute abdomen. MTDD
--- NOTE | 2020-09-29 17:33 | EDM.PDOC ---
ED HPI GENERAL MEDICAL PROBLEM - General Stated Complaint: COVID SYMTOMS Time Seen by Provider: 09/29/20 15:59 Source of Information: Reports: Patient - History of Present Illness INITIAL COMMENTS - FREE TEXT/NARRATIVE: c/o fever pt with fever at [facility], myalgias, slight cough has h/o asp pneumonia at [facility] since 07-12-19 [facility] [employer] breat CA GI colon CA, GERD, constipation ORTHO DJD HEME Fe def anemia CV hyperlidpidemia, afib BEH bipolar, depression, schizoaffective DO ENT allergic rhinitis uses oxygen at night, 2 l/min CxR 1v with no pneumonia, possible mild vascular congestion, per radiologist body aching and abd pain Pain Score (Numeric/FACES): 7 - Related Data Allergies Allergy/AdvReac Type Severity Reaction Status Date / Time Sulfa (Sulfonamide Allergy Rash Verified 08/06/19 19:22 Antibiotics) Home Meds: Home Meds Benztropine [Cogentin] 1 mg PO BID 05/09/14 [History] Cholecalciferol (Vitamin D3) [Vitamin D3] 1,000 unit PO DAILY 05/09/14 [History] Escitalopram [Lexapro] 10 mg PO DAILY 05/09/14 [History] Omeprazole [Prilosec] 20 mg PO BIDAC 05/09/14 [History] atorvaSTATin Calcium [Atorvastatin Calcium] 20 mg PO BEDTIME 05/09/14 [History] lamoTRIgine [Lamictal] 100 mg PO DAILY 05/09/14 [History] Warfarin [Coumadin] 2.5 mg PO SUTUWETHSA 10/30/14 [History] Warfarin [Coumadin] 5 mg PO MOFR 04/29/15 [History] Diclofenac Sodium [Voltaren] 4 gm TOP BID 06/05/18 [History] Ferrous Sulfate 325 mg PO DAILY 06/05/18 [History] Fluticasone Propionate [Flonase] 2 spray NASBOTH DAILY 06/05/18 [History] SUMAtriptan succinate [Imitrex] 50 mg PO ASDIRECTED PRN 06/05/18 [History] rOPINIRole HCl [Requip Xl] 4 mg PO DAILY@199906/05/18 [History] Multivitamin [Daily Gilmar] 1 tab PO DAILY 08/23/18 [History] risperiDONE Microspheres [RisperiDAL Consta] 25 mg IM Q14D 08/23/18 [History] Aspirin [Halfprin] 81 mg PO DAILY 05/18/19 [History] Magnesium 250 mg PO BID 05/18/19 [History] Verapamil HCl [Verapamil ER] 120 mg PO DAILY 05/18/19 [History] Sennosides/Docusate Sodium [Senna Plus 8.6-50 mg Tablet] 1 each PO BID 07/09/19 [History] Calcium Carbonate/Vitamin D3 [Calcium 500-Vit D3 200 Caplet] 1 tab PO BID 08/06/19 [History] traZODone HCl [Trazodone HCl] 50 mg PO BEDTIME 08/06/19 [History] Acetaminophen [Tylenol Extra Strength] 500 mg PO QID PRN 08/07/19 [History] Acetaminophen/HYDROcodone [Hext 325-5 MG] 1 tab PO Q4H PRN 08/07/19 [History] Albuterol [Ventolin HFA] 2 puff INH Q6H PRN 08/07/19 [History] Anastrozole [Arimidex] 1 mg PO BEDTIME 08/07/19 [History] Ketotifen Fumarate [Zaditor] 1 drop EYEBOTH DAILY PRN 08/07/19 [History] Past Medical History HEENT History: Reports: Cataract Cardiovascular History: Reports: Afib, Blood Clots/VTE/DVT, Heart Murmur, High Cholesterol, Hypertension, SOB on Exertion Respiratory History: Reports: PE, Pneumothorax, SOB, Other (See Below) Other Respiratory History: HYPOXIA, uses O2 @ 2L/NC @ hs. Gastrointestinal History: Reports: Colon Polyp, Diverticulosis, GERD Genitourinary History: Reports: None INSULATION BLOWER History: Reports: Other (See Below) Other INSULATION BLOWER History: ABNORMAL PAP, Musculoskeletal History: Reports: Arthritis, Back Pain, Chronic, Fracture, Osteoarthritis Other Musculoskeletal History: hx R fx collarbone with surgery Neurological History: Reports: Concussion, CVA, Headaches, Chronic, Head Trauma, Migraines Other Neuro History: CVA x 2 Psychiatric History: Reports: Anxiety, Bipolar, Depression, Panic Attack, Schizophrenia, Suicide Attempt, Other (See Below) Other Psychiatric History: PARANOIA Endocrine/Metabolic History: Reports: Obesity/BMI 30+ Hematologic History: Reports: Anemia, Anticoagulation Therapy, Blood Transfusion(s) Immunologic History: Reports: None Oncologic (Cancer) History: Reports: Breast Dermatologic History: Reports: None - Infectious Disease History Infectious Disease History: Reports: Chicken Pox, Mumps - Past Surgical History HEENT Surgical History: Reports: Adenoidectomy, Cataract Surgery, Tonsillectomy Other HEENT Surgeries/Procedures: bilat cataract Cardiovascular Surgical History: Reports: None Respiratory Surgical History: Reports: Other (See Below) Other Respiratory Surgeries/Procedures: lung surgery following suicide attempt in past GI Surgical History: Reports: Cholecystectomy, Colonoscopy, EGD Female Surgical History: Reports: Breast Biopsy, Other (See Below) Other Female Surgeries/Procedures: bilateral mastectomy July 10 2019 Neurological Surgical History: Reports: Other (See Below) Other Neurological Surgeries/Procedures: BACK INJECTIONS Musculoskeletal Surgical History: Reports: Arthroscopic Knee, Arthroscopic Procedure, Other (See Below) Other Musculoskeletal Surgeries/Procedures:: RCLAVICAL SURGERY, LUMBAR SPINE SURGERY Oncologic Surgical History: Reports: None, Lumpectomy Dermatological Surgical History: Reports: None Social & Family History - Family History Family Medical History: No Pertinent Family History - Caffeine Use Caffeine Use: Reports: Coffee Other Caffeine Use: 3 cups a day, a can of soda everyday - Living Situation & Occupation Occupation: Retired ED ROS GENERAL - Review of Systems Review Of Systems: See Below Constitutional: Reports: No Symptoms HEENT: Reports: No Symptoms Respiratory: Reports: Shortness of Breath Cardiovascular: Reports: No Symptoms Endocrine: Reports: No Symptoms GI/Abdominal: Reports: No Symptoms : Reports: No Symptoms Musculoskeletal: Reports: No Symptoms Skin: Reports: No Symptoms Neurological: Reports: No Symptoms Psychiatric: Reports: No Symptoms Hematologic/Lymphatic: Reports: No Symptoms Immunologic: Reports: No Symptoms ED EXAM, GENERAL - Physical Exam Exam: See Below Exam Limited By: No Limitations General Appearance: Alert, WD/WN, No Apparent Distress, Other (conversant, pleasant, no cough observed, NAD, nonill appearing) Eye Exam: Bilateral Eye: EOMI, PERRL Nose: Normal Inspection Throat/Mouth: Normal Inspection, Normal Voice, No Airway Compromise Head: Atraumatic, Normocephalic Neck: Normal Inspection, Supple, Non-Tender, Full Range of Motion. No: Lymphadenopathy (R), Lymphadenopathy (L) Respiratory/Chest: No Respiratory Distress, Lungs Clear, Normal Breath Sounds, No Accessory Muscle Use, Chest Non-Tender Cardiovascular: Regular Rate, Rhythm, No Edema, No Gallop, No JVD, Other (2/6 ENRRIQUE at LSB) GI/Abdominal: Soft, Non-Tender, No Organomegaly, No Distention Back Exam: Normal Inspection, Full Range of Motion Extremities: Normal Inspection, Normal Range of Motion, Non-Tender, No Pedal Edema Neurological: Alert, Oriented, CN II-XII Intact, Normal Cognition, No Motor/Sensory Deficits Psychiatric: Normal Affect, Normal Mood Skin Exam: Warm, Dry, Intact, Normal Color, No Rash Lymphatic: No Adenopathy Course - Vital Signs Last Recorded V/S: Last Vital Signs Temp 36.9 C 09/29/20 15:51 Pulse 97 09/29/20 15:51 Resp 20 09/29/20 15:51 BP 135/61 09/29/20 15:51 Pulse Ox 89 L 09/29/20 15:51 - Orders/Labs/Meds Orders: Active Orders 24 hr Category Date Time Status EKG Documentation Completion [RC] ASDIRECTED Care 09/29/20 16:05 Active Insert Astorga Catheter [Insert Urinary Catheter] [OM.PC] Care 09/29/20 16:15 Ordered Q24H Urinary Catheter Assessment [RC] QSHIFT Care 09/29/20 16:06 Active CBC WITH AUTO DIFF [HEME] Stat Lab 09/29/20 18:59 Ordered COMPREHENSIVE METABOLIC PN,CMP [CHEM] Stat Lab 09/29/20 18:59 Ordered CRP [C-REACTIVE PROTEIN] [CHEM] Stat Lab 09/29/20 19:00 Ordered CULTURE BLOOD [BC] Urgent Lab 09/29/20 16:22 Received CULTURE BLOOD [BC] Urgent Lab 09/29/20 16:30 Received INFLUENZA A+B AG SCREEN [RM] Stat Lab 09/29/20 18:59 Ordered Blood Culture x2 Reflex Set [OM.PC] Urgent Oth 09/29/20 16:04 Ordered Isolation [COMM] Routine Oth 09/29/20 18:59 Ordered EKG 12 Lead [EK] Routine Ther 09/29/20 16:04 Ordered Labs: Laboratory Tests 09/29/20 09/29/20 09/29/20 Range/Units 16:22 16:22 16:22 POC ABG pH (7.35-7.45) pH POC ABG pCO2 (35-48) mmHg POC ABG pO2 (83-108) mmHg POC ABG HCO3 (21-28) mmol/L ABG O2 Sat (Calculated) (94-98) % POC ABG Base Excess (-2-3) mmol/L Alin Test (PASS) O2 Delivery Device Lactic Acid 1.6 (0.4-2.0) mmol/L Magnesium 2.0 (1.8-2.5) mg/dL Troponin I 5.1 (4.0-60.3) pg/mL NT-Pro-B Natriuret Pep 614 H (<=125) pg/mL Lipase (73-393) U/L Urine Color (YELLOW) Urine Appearance (CLEAR) Urine pH (5.0-6.5) Ur Specific Rawlings (1.010-1.025) Urine Protein (NEGATIVE) mg/dL Urine Glucose (UA) (NORMAL) mg/dL Urine Ketones (NEGATIVE) mg/dL Urine Occult Blood (NEGATIVE) Urine Nitrite (NEGATIVE) Urine Bilirubin (NEGATIVE) Urine Urobilinogen (NEGATIVE) mg/dL Ur Leukocyte Esterase (NEGATIVE) Urine RBC (0-5) Urine WBC (0-5) Ur Squamous Epith Cells (NS,R,O) Amorphous Sediment Urine Bacteria (NS) Urine Mucus (NS) SARS-CoV-2 RNA (REYNA) (NEGATIVE) 09/29/20 09/29/20 09/29/20 Range/Units 16:22 16:30 16:50 POC ABG pH 7.4 (7.35-7.45) pH POC ABG pCO2 49 H (35-48) mmHg POC ABG pO2 117 H (83-108) mmHg POC ABG HCO3 29 H (21-28) mmol/L ABG O2 Sat (Calculated) 98.4 H (94-98) % POC ABG Base Excess 4 H (-2-3) mmol/L Alin Test Pass (PASS) O2 Delivery Device Nasal cannula Lactic Acid (0.4-2.0) mmol/L Magnesium (1.8-2.5) mg/dL Troponin I (4.0-60.3) pg/mL NT-Pro-B Natriuret Pep (<=125) pg/mL Lipase 39 L (73-393) U/L Urine Color (YELLOW) Urine Appearance (CLEAR) Urine pH (5.0-6.5) Ur Specific Rawlings (1.010-1.025) Urine Protein (NEGATIVE) mg/dL Urine Glucose (UA) (NORMAL) mg/dL Urine Ketones (NEGATIVE) mg/dL Urine Occult Blood (NEGATIVE) Urine Nitrite (NEGATIVE) Urine Bilirubin (NEGATIVE) Urine Urobilinogen (NEGATIVE) mg/dL Ur Leukocyte Esterase (NEGATIVE) Urine RBC (0-5) Urine WBC (0-5) Ur Squamous Epith Cells (NS,R,O) Amorphous Sediment Urine Bacteria (NS) Urine Mucus (NS) SARS-CoV-2 RNA (REYNA) Negative (NEGATIVE) 09/29/20 Range/Units 17:10 POC ABG pH (7.35-7.45) pH POC ABG pCO2 (35-48) mmHg POC ABG pO2 (83-108) mmHg POC ABG HCO3 (21-28) mmol/L ABG O2 Sat (Calculated) (94-98) % POC ABG Base Excess (-2-3) mmol/L Alin Test (PASS) O2 Delivery Device Lactic Acid (0.4-2.0) mmol/L Magnesium (1.8-2.5) mg/dL Troponin I (4.0-60.3) pg/mL NT-Pro-B Natriuret Pep (<=125) pg/mL Lipase (73-393) U/L Urine Color Yellow (YELLOW) Urine Appearance Slightly cloudy (CLEAR) Urine pH 5.0 (5.0-6.5) Ur Specific Rawlings 1.020 (1.010-1.025) Urine Protein 30 H (NEGATIVE) mg/dL Urine Glucose (UA) Normal (NORMAL) mg/dL Urine Ketones 15 H (NEGATIVE) mg/dL Urine Occult Blood Negative (NEGATIVE) Urine Nitrite Negative (NEGATIVE) Urine Bilirubin Negative (NEGATIVE) Urine Urobilinogen Normal (NEGATIVE) mg/dL Ur Leukocyte Esterase Negative (NEGATIVE) Urine RBC 0-5 (0-5) Urine WBC 0-5 (0-5) Ur Squamous Epith Cells Few H (NS,R,O) Amorphous Sediment Few Urine Bacteria Few H (NS) Urine Mucus Many H (NS) SARS-CoV-2 RNA (REYNA) (NEGATIVE) - Re-Assessments/Exams Free Text/Narrative Re-Assessment/Exam: 09/29/20 19:10 signed out at 7p at change of shift, still waiting on labs, CxR and abd XR neg per Dr Bronson, CBC and CMP and flu A/B pending Departure - Departure Time of Disposition: 19:01 Disposition: Still A Patient 30 Condition: Good Clinical Impression: Flu-like symptoms - Discharge Information *PRESCRIPTION DRUG MONITORING PROGRAM REVIEWED*: Not Applicable *COPY OF PRESCRIPTION DRUG MONITORING REPORT IN PATIENT SERENA: Not Applicable Sepsis Event Note (ED) - Focused Exam Vital Signs: Vital Signs Temp Pulse Resp BP Pulse Ox 09/29/20 15:51 36.9 C 97 20 135/61 89 L - My Orders Last 24 Hours: My Active Orders 09/29/20 16:04 Blood Culture x2 Reflex Set [OM.PC] Urgent EKG 12 Lead [EK] Routine 09/29/20 16:05 EKG Documentation Completion [RC] ASDIRECTED 09/29/20 16:06 Urinary Catheter Assessment [RC] QSHIFT 09/29/20 16:15 Insert Astorga Catheter [Insert Urinary Catheter] [OM.PC] Q24H 09/29/20 16:22 CULTURE BLOOD [BC] Urgent 09/29/20 16:30 CULTURE BLOOD [BC] Urgent 09/29/20 18:59 CBC WITH AUTO DIFF [HEME] Stat COMPREHENSIVE METABOLIC PN,CMP [CHEM] Stat INFLUENZA A+B AG SCREEN [RM] Stat Isolation [COMM] Routine 09/29/20 19:00 CRP [C-REACTIVE PROTEIN] [CHEM] Stat - Assessment/Plan Last 24 Hours: My Active Orders 09/29/20 16:04 Blood Culture x2 Reflex Set [OM.PC] Urgent EKG 12 Lead [EK] Routine 09/29/20 16:05 EKG Documentation Completion [RC] ASDIRECTED 09/29/20 16:06 Urinary Catheter Assessment [RC] QSHIFT 09/29/20 16:15 Insert Astorga Catheter [Insert Urinary Catheter] [OM.PC] Q24H 09/29/20 16:22 CULTURE BLOOD [BC] Urgent 09/29/20 16:30 CULTURE BLOOD [BC] Urgent 09/29/20 18:59 CBC WITH AUTO DIFF [HEME] Stat COMPREHENSIVE METABOLIC PN,CMP [CHEM] Stat INFLUENZA A+B AG SCREEN [RM] Stat Isolation [COMM] Routine 09/29/20 19:00 CRP [C-REACTIVE PROTEIN] [CHEM] Stat
[2020-09-29 21:59] VITALS: BP 138/72; PULSE 88
== END 2020-09-29 20:50 | disposition still patient (30) ==
LOC: FB.ED 15:51
DX: J10.1 Influenza due to other identified influenza virus with other respiratory manifestations (principal); I48.91 Unspecified atrial fibrillation; E78.00 Pure hypercholesterolemia, unspecified; I10 Essential (primary) hypertension; K21.9 Gastro-esophageal reflux disease without esophagitis; M19.90 Unspecified osteoarthritis, unspecified site; D64.9 Anemia, unspecified; E66.9 Obesity, unspecified; Z79.01 Long term (current) use of anticoagulants; Z88.2 Allergy status to sulfonamides; Z79.899 Other long term (current) drug therapy; Z79.82 Long term (current) use of aspirin; Z20.822 Contact with and (suspected) exposure to COVID-19
CPT/HCPCS: 36415; 71045; 74018; 80053; 81001; 82803; 83605; 83690; 83735; 83880; 84484; 85025; 86140; 87040; 87804; 93005; 99285; U0002; 99283

== ENCOUNTER 2022-10-09 22:21 | Emergency (ER) | payer MEDICARE, MEDICAID ==
[2022-10-10 05:15] VITALS: BP 158/76; PULSE 59
[2022-10-15] MEDS ORDERED: Ondansetron 4 MG/2 ML SDV IVPUSH ONE (08:32)
== END 2022-10-09 23:30 | disposition home or self-care (01) ==
LOC: FB.ED 22:21
DX: K59.00 Constipation, unspecified (principal); E78.00 Pure hypercholesterolemia, unspecified; I10 Essential (primary) hypertension; E66.9 Obesity, unspecified; Z68.29 Body mass index [BMI] 29.0-29.9, adult; Z88.2 Allergy status to sulfonamides; Z79.899 Other long term (current) drug therapy; Z79.01 Long term (current) use of anticoagulants; Z90.49 Acquired absence of other specified parts of digestive tract
CPT/HCPCS: 99282; 99283

== ENCOUNTER 2023-05-11 12:52 | Emergency (ER) | payer MEDICARE, MEDICAID ==
[2023-05-11 13:56] LABS: BLOOD UREA NITROGEN,BUN 14 mg/dL (7-18); CALCIUM 10.5 mg/dL (8.6-10.2); CARBON DIOXIDE,CO2 27 mmol/L (21-32); CHLORIDE,CL 99 mmol/L (100-110); CREATININE 0.7 mg/dL (0.55-1.02); ESTIMATED GFR 90 mL/min (>60); GLUCOSE RANDOM 143 mg/dL (80-116); POTASSIUM,K 4.2 mmol/L (3.5-5.3); SODIUM,NA 136 mmol/L (135-145)
[2023-05-11 14:02] LABS: A/G RATIO 0.9; ALANINE AMINOTRANSFERASE,ALT 35 U/L (12-36); ALBUMIN 3.2 g/dL (3.2-4.6); ALKALINE PHOSPHATASE 139 IU/L (56-112); ASPARTATE AMNIOTRANSFERASE,AST 21 IU/L (5-25); BILIRUBIN TOTAL 0.2 mg/dL (0.1-1.3); MAGNESIUM 1.6 mg/dL (1.8-2.5); PROTEIN TOTAL,TP 6.9 g/dL (6.0-8.0)
[2023-05-11 14:03] LABS: BILIRUBIN,URINE NEGATIVE (NEGATIVE); GLUCOSE,URINE NORMAL (NORMAL); KETONES,URINE 15 mg/dL (NEGATIVE); LEUKOCYTE ESTERASE,URINE NEGATIVE (NEGATIVE); NITRITE,URINE NEGATIVE (NEGATIVE); OCCULT BLOOD,URINE NEGATIVE (NEGATIVE); PROTEIN,URINE TRACE mg/dL (NEGATIVE); UROBILINOGEN,URINE NORMAL (NEGATIVE)
[2023-05-11 14:05] LABS: APPEARANCE,URINE CLEAR (CLEAR); COLOR,URINE YELLOW (YELLOW)
[2023-05-11 14:06] LABS: BACTERIA,URINE FEW (NS); SQUAMOUS EPITHELIAL CELLS,UR RARE (NS,R,O); WBC,URINE 0-5 (0-5)
[2023-05-11] MEDS: Magnesium Oxide 400 MG Tab PO ONE (15:31)
[2023-05-11 17:02] VITALS: BP 148/82; PULSE 79
== END 2023-05-11 15:55 | disposition home or self-care (01) ==
LOC: FB.ED 12:52
DX: L02.31 Cutaneous abscess of buttock (principal); E83.42 Hypomagnesemia; L98.491 Non-pressure chronic ulcer of skin of other sites limited to breakdown of skin; M25.50 Pain in unspecified joint; E66.9 Obesity, unspecified; Z68.28 Body mass index [BMI] 28.0-28.9, adult; Z88.2 Allergy status to sulfonamides; Z79.899 Other long term (current) drug therapy; Z90.49 Acquired absence of other specified parts of digestive tract
CPT/HCPCS: 36415; 80053; 81001; 82550; 83735; 86140; 87086; 99283; A9270-GY

== ENCOUNTER 2023-12-02 10:13 | Emergency (ER) | payer MEDICARE, MEDICAID ==
[2023-12-02] MEDS ORDERED: Sodium Chloride 0.9% 10 ML Syringe FLUSH PRN (11:28)
[2023-12-02 12:08] LABS: HEMATOCRIT 37.3 % (34.2-48.2); HEMOGLOBIN 12.4 g/dL (11.4-15.5); MEAN CORPUSCULAR HEMOGLOBIN 30.3 pg (23.9-33.9); MEAN CORPUSCULAR HGB CONC 33.3 g/dL (31.9-34.8); MEAN CORPUSCULAR VOLUME 90.8 fL (76.7-100.5); MEAN PLATELET VOLUME 7.3 fL (7.1-12.4); PLATELET COUNT,PLT 327 x10(3)uL (151-488); RED CELL DISTRIBUTION WIDTH 15.9 % (12.3-16.5); WHITE BLOOD CELL COUNT,WBC 9.3 x10-3/uL (3.0-10.3)
[2023-12-02 12:10] LABS: BLOOD UREA NITROGEN,BUN 18 mg/dL (7-18); CALCIUM 10.2 mg/dL (8.6-10.2); CARBON DIOXIDE,CO2 31 mmol/L (21-32); CHLORIDE,CL 100 mmol/L (100-110); EST CRCL DRUG DOSING (CG) 41.33 mL/min; ESTIMATED GFR 58 mL/min (>60); GLUCOSE RANDOM 130 mg/dL (80-116); POTASSIUM,K 4.8 mmol/L (3.5-5.3); SODIUM,NA 137 mmol/L (135-145)
[2023-12-02 12:16] LABS: A/G RATIO 0.9; ALANINE AMINOTRANSFERASE,ALT 16 U/L (12-36); ALBUMIN 3.4 g/dL (3.2-4.6); ALKALINE PHOSPHATASE 96 IU/L (56-112); ASPARTATE AMNIOTRANSFERASE,AST 8 IU/L (5-25); BILIRUBIN TOTAL 0.4 mg/dL (0.1-1.3); CREATINE KINASE,CK 31 IU/L (60-160); PROTEIN TOTAL,TP 7.1 g/dL (6.0-8.0)
[2023-12-02 12:29] LABS: LYMPHOCYTES PERCENT MAN 8 % (13-37); MONOCYTES PERCENT MAN 2 % (4-12); SEG NEUTROPHILS PERCENT MAN 90 % (46-82)
[2023-12-02 12:31] LABS: BILIRUBIN,URINE NEGATIVE (NEGATIVE); GLUCOSE,URINE NORMAL (NORMAL); KETONES,URINE NEGATIVE (NEGATIVE); LEUKOCYTE ESTERASE,URINE NEGATIVE (NEGATIVE); NITRITE,URINE NEGATIVE (NEGATIVE); OCCULT BLOOD,URINE NEGATIVE (NEGATIVE); PROTEIN,URINE NEGATIVE (NEGATIVE); UROBILINOGEN,URINE NORMAL (NEGATIVE)
[2023-12-02 12:34] LABS: APPEARANCE,URINE CLEAR (CLEAR); BACTERIA,URINE FEW (NS); COLOR,URINE YELLOW (YELLOW); SQUAMOUS EPITHELIAL CELLS,UR OCCASIONAL (NS,R,O); WBC,URINE 0-5 (0-5)
[2023-12-02 14:33] VITALS: BP 142/61; PULSE 72
== END 2023-12-02 14:30 | disposition other institution (70) ==
LOC: FB.ED 10:13
DX: S80.02XA Contusion of left knee, initial encounter (principal); S80.01XA Contusion of right knee, initial encounter; S70.02XA Contusion of left hip, initial encounter; S70.01XA Contusion of right hip, initial encounter; I10 Essential (primary) hypertension; E66.9 Obesity, unspecified; Z88.2 Allergy status to sulfonamides; Z90.49 Acquired absence of other specified parts of digestive tract; Z68.36 Body mass index [BMI] 36.0-36.9, adult; W19.XXXA Unspecified fall, initial encounter
CPT/HCPCS: 36415; 71101-RT; 73521; 73562-LT; 73562-RT; 73590-RT; 80053; 81001; 82550; 85025; 99284

== ENCOUNTER 2023-12-08 11:18 | Observation (INO) | payer MEDICARE, MEDICAID ==
[2023-12-08 12:24] LABS: HEMATOCRIT 34.8 % (34.2-48.2); HEMOGLOBIN 11.5 g/dL (11.4-15.5); MEAN CORPUSCULAR HEMOGLOBIN 29.6 pg (23.9-33.9); MEAN CORPUSCULAR VOLUME 89.8 fL (76.7-100.5); MEAN PLATELET VOLUME 7.1 fL (7.1-12.4); PLATELET COUNT,PLT 256 x10(3)uL (151-488); RED BLOOD CELL COUNT 3.87 x10(6)uL (3.60-5.20); RED CELL DISTRIBUTION WIDTH 15.9 % (12.3-16.5); WHITE BLOOD CELL COUNT,WBC 6.1 x10-3/uL (3.0-10.3)
[2023-12-08 12:29] LABS: BLOOD UREA NITROGEN,BUN 14 mg/dL (7-18); BUN/CREATININE RATIO 17.5 (9-20); CALCIUM 9.6 mg/dL (8.6-10.2); CARBON DIOXIDE,CO2 31 mmol/L (21-32); CHLORIDE,CL 100 mmol/L (100-110); CREATININE 0.8 mg/dL (0.55-1.02); ESTIMATED GFR 76 mL/min (>60); GLUCOSE RANDOM 145 mg/dL (80-116); POTASSIUM,K 4.1 mmol/L (3.5-5.3); SODIUM,NA 138 mmol/L (135-145)
[2023-12-08 12:35] LABS: A/G RATIO 0.9; ALANINE AMINOTRANSFERASE,ALT 18 U/L (12-36); ALBUMIN 3.1 g/dL (3.2-4.6); ALKALINE PHOSPHATASE 85 IU/L (56-112); ASPARTATE AMNIOTRANSFERASE,AST 8 IU/L (5-25); BILIRUBIN TOTAL 0.5 mg/dL (0.1-1.3); PROTEIN TOTAL,TP 6.6 g/dL (6.0-8.0)
[2023-12-08 12:41] LABS: INFLUENZA A NAA NEGATIVE (NEGATIVE); INFLUENZA B NAA NEGATIVE (NEGATIVE); RESPIRATORY SYNCYTIAL VIR NAA NEGATIVE (NEGATIVE)
[2023-12-08 12:47] LABS: CORONAVIRUS COVID-19 NAA NEGATIVE (NEGATIVE)
[2023-12-08 12:59] LABS: BAND PERCENT MAN 4 % (0-6); LYMPHOCYTES PERCENT MAN 12 % (13-37); MONOCYTES PERCENT MAN 7 % (4-12); SEG NEUTROPHILS PERCENT MAN 77 % (46-82)
[2023-12-08 13:43] LABS: BILIRUBIN,URINE NEGATIVE (NEGATIVE); GLUCOSE,URINE NORMAL (NORMAL); KETONES,URINE NEGATIVE (NEGATIVE); LEUKOCYTE ESTERASE,URINE NEGATIVE (NEGATIVE); NITRITE,URINE NEGATIVE (NEGATIVE); OCCULT BLOOD,URINE NEGATIVE (NEGATIVE); PROTEIN,URINE NEGATIVE (NEGATIVE); UROBILINOGEN,URINE NORMAL (NEGATIVE)
[2023-12-08 13:59] LABS: APPEARANCE,URINE CLEAR (CLEAR); BACTERIA,URINE OCCASIONAL (NS); COLOR,URINE YELLOW (YELLOW); RBC,URINE 0-5 (0-5); SQUAMOUS EPITHELIAL CELLS,UR OCCASIONAL (NS,R,O); WBC,URINE 0-5 (0-5)
[2023-12-08 14:32] LABS: TROPONIN I 9.1 pg/mL (4.0-60.3)
[2023-12-08] MEDS: Iopamidol 755 Mg/ML 100 ML Bottle IV SCH (14:43)
[2023-12-08] MEDS: Acetaminophen 500 MG Tab PO ONE (15:59)
[2023-12-08] MEDS ORDERED: Acetaminophen 325 MG Tab PO PRN (17:30)
[2023-12-08] MEDS ORDERED: Magnesium Hydroxide 400 MG/5 ML Susp 30 ML Cup PO PRN (17:30)
[2023-12-08] MEDS ORDERED: Zolpidem 5 MG Tab PO PRN (17:30)
[2023-12-08] MEDS ORDERED: Ondansetron 4 MG Tab.DIS PO PRN (18:09)
[2023-12-08] MEDS: Levofloxacin 750 MG Tab PO SCH (18:57)
[2023-12-08] MEDS: Enoxaparin 40 MG/0.4 ML Syringe SUBCUT SCH (18:57)
[2023-12-08] MEDS: Carbidopa/Levodopa 25-100 MG Tab PO SCH (20:32)
[2023-12-08] MEDS: Gabapentin 300 MG Cap PO SCH (20:32)
[2023-12-08] MEDS: predniSONE 20 MG Tab PO SCH (20:32)
[2023-12-08] MEDS: traZODone 50 MG Tab PO SCH (20:32)
[2023-12-08] MEDS: Anastrozole 1 MG Tab PO SCH (20:32)
[2023-12-08] MEDS: Sennosides/Docusate Sodium 50-8.6 MG Tab PO SCH (20:32)
[2023-12-08] MEDS: risperiDONE 1 MG Tab PO SCH (20:32)
[2023-12-08] MEDS: Pantoprazole 40 MG Tab.CR PO SCH (20:32)
[2023-12-08] MEDS: Benztropine 1 MG Tab PO SCH (20:33)
[2023-12-08] MEDS ORDERED: Non-Formulary Medication 1 Each (Omeprazole [Omeprazole] 20 MG Cap.Cr) PO SCH (21:00)
[2023-12-09] MEDS: Pantoprazole 40 MG Tab.CR PO SCH (05:08)
[2023-12-09 07:02] LABS: BASOPHILS PERCENT AUTO 0.5 % (0.2-1.5); HEMATOCRIT 36.3 % (34.2-48.2); LYMPHOCYTES ABSOLUTE AUTO 0.7 x10-3/uL (1.0-4.4); LYMPHOCYTES PERCENT AUTO 12.8 % (18.4-52.1); MEAN CORPUSCULAR VOLUME 90.7 fL (76.7-100.5); MEAN PLATELET VOLUME 7.3 fL (7.1-12.4); MONOCYTES ABSOLUTE AUTO 0.5 x10-3/uL (0.3-1.0); NEUTROPHILS ABSOLUTE AUTO 4.2 x10-3/uL (1.5-6.3); NEUTROPHILS PERCENT AUTO 77.7 % (30.8-76.2); PLATELET COUNT,PLT 267 x10(3)uL (151-488); RED CELL DISTRIBUTION WIDTH 16.2 % (12.3-16.5); WHITE BLOOD CELL COUNT,WBC 5.5 x10-3/uL (3.0-10.3)
[2023-12-09 07:40] LABS: RED BLOOD CELL COUNT 4.01 x10(6)uL (3.60-5.20)
[2023-12-09] MEDS: busPIRone 15 MG Tab PO SCH (08:49)
[2023-12-09] MEDS: Folic Acid 1 MG Tab PO SCH (08:51)
[2023-12-09] MEDS: lamoTRIgine 100 MG Tab PO SCH (08:51)
[2023-12-09] MEDS: Polyethylene Glycol 3350 Powder 17 GM Packet PO SCH (08:52)
[2023-12-09] MEDS: Escitalopram 10 MG Tab PO SCH (08:52)
[2023-12-09] MEDS: LORazepam 0.5 MG Tab PO SCH (09:36)
[2023-12-09] MEDS: Fluticasone NASAL Spray 16 GM Bottle NASBOTH SCH (09:55)
[2023-12-09] MEDS: Oseltamivir 75 MG Cap PO SCH (09:57)
[2023-12-09 11:16] VITALS: BP 158/86; PULSE 95
[2023-12-09] MEDS ORDERED: ROPINIROLE 2 MG PO SCH (17:00)
[2023-12-13] MEDS ORDERED: Methotrexate 2.5 MG Tab PO SCH (08:00)
== END 2023-12-09 11:05 | disposition home or self-care (01) ==
LOC: FB.ED 11:18 → FB.MS 17:25
PROVIDERS: ADMIT Family Medicine; ATTEND Family Medicine
DX: R09.02 Hypoxemia (principal); R26.2 Difficulty in walking, not elsewhere classified; R68.89 Other general symptoms and signs; K57.30 Diverticulosis of large intestine without perforation or abscess without bleeding; I10 Essential (primary) hypertension; E78.5 Hyperlipidemia, unspecified; K21.9 Gastro-esophageal reflux disease without esophagitis; Z87.891 Personal history of nicotine dependence; Z88.2 Allergy status to sulfonamides; Z79.899 Other long term (current) drug therapy; W19.XXXA Unspecified fall, initial encounter
CPT/HCPCS: 0241U; 36415; 71045; 71275; 80053; 81001; 83735; 83880; 84484; 85025; 86140; 96372; 99222; 99238; 99285; A9270-GY; G0378; J1650; J7512; Q9967

== ENCOUNTER 2024-01-13 11:45 | Inpatient (IN) | payer MEDICARE, MEDICAID ==
[2024-01-13 14:25] LABS: BASE EXCESS VENOUS,POC 1 mmol/L (-2 - 3+); PCO2 VENOUS,POC 45 mmHg (41-51); PH VENOUS,POC 7.38 pH Units (7.32-7.43)
[2024-01-13] MEDS: Iopamidol 755 Mg/ML 100 ML Bottle IV SCH (15:45)
[2024-01-13 15:48] LABS: TROPONIN I 5.3 pg/mL (4.0-60.3)
[2024-01-13] MEDS ORDERED: Loperamide 2 MG Cap PO PRN (16:43)
[2024-01-13] MEDS ORDERED: Bisacodyl 10 MG Supp RECTAL PRN (16:43)
[2024-01-13] MEDS ORDERED: Carbamide Peroxide 6.5% Otic Soln 15 ML Bottle EARBOTH PRN (16:43)
[2024-01-13] MEDS ORDERED: guaiFENesin 100 MG/5 ML Soln 5 ML UD Cup PO PRN (16:43)
[2024-01-13] MEDS ORDERED: Polyethylene Glycol 3350 Powder 17 GM Packet PO PRN (16:43)
[2024-01-13] MEDS ORDERED: Magnesium Hydroxide 400 MG/5 ML Susp 30 ML Cup PO PRN (16:43)
[2024-01-13] MEDS ORDERED: Aluminum Hydroxide/Magnesium Hydroxide Susp 30 ML Cup PO PRN (17:18)
[2024-01-13] MEDS ORDERED: Ondansetron 4 MG Tab.DIS PO PRN (17:19)
[2024-01-13] MEDS: rOPINIRole 1 MG Tab PO SCH (18:08)
[2024-01-13 19:32] LABS: INR 0.95 (1.00-1.24); PROTHROMBIN TIME 9.9 sec (9.0-11.1)
[2024-01-13] MEDS: Apixaban 5 MG Tab PO STA (19:32)
[2024-01-13 19:34] LABS: PTT,PARTIAL THROMBOPLSTIN TIME 22.2 SECONDS (24.4-33.2)
[2024-01-13 19:41] LABS: INFLUENZA A NAA NEGATIVE (NEGATIVE); INFLUENZA B NAA NEGATIVE (NEGATIVE); RESPIRATORY SYNCYTIAL VIR NAA NEGATIVE (NEGATIVE)
[2024-01-13 19:42] LABS: CORONAVIRUS COVID-19 NAA NEGATIVE (NEGATIVE)
[2024-01-13] MEDS: cefTRIAXone 1 GM in Sodium Chloride 0.9% 50 ML IV STA (19:44)
[2024-01-13] MEDS: Sodium Chloride 0.9% 10 ML Syringe FLUSH PRN (20:13)
[2024-01-13] MEDS: Gabapentin 300 MG Cap PO SCH (20:19)
[2024-01-13] MEDS: Anastrozole 1 MG Tab PO SCH (20:19)
[2024-01-13] MEDS: Benztropine 1 MG Tab PO SCH (20:19)
[2024-01-13] MEDS: busPIRone 15 MG Tab PO SCH (20:19)
[2024-01-13] MEDS: Carboxymethylcellulose Sodium 0.5% Ophth Soln 15 ML Bottle EYEBOTH SCH (20:20)
[2024-01-13] MEDS: Pantoprazole 40 MG Tab.CR PO SCH (20:20)
[2024-01-13] MEDS: risperiDONE 1 MG Tab PO SCH (20:21)
[2024-01-13] MEDS: Sennosides/Docusate Sodium 50-8.6 MG Tab PO SCH (20:22)
[2024-01-13] MEDS: Carbidopa/Levodopa 25-100 MG Tab PO SCH (20:22)
[2024-01-13] MEDS: traZODone 50 MG Tab PO SCH (20:23)
[2024-01-13] MEDS: LORazepam 0.5 MG Tab PO SCH (20:25)
[2024-01-14 06:42] LABS: BASOPHILS ABSOLUTE AUTO 0.1 x10-3/uL (0.0-0.1); BASOPHILS PERCENT AUTO 0.9 % (0.2-1.5); EOSINOPHILS ABSOLUTE AUTO 0.4 x10-3/uL (0.0-0.8); EOSINOPHILS PERCENT AUTO 5.5 % (0.6-8.1); HEMATOCRIT 32.6 % (34.2-48.2); HEMOGLOBIN 10.6 g/dL (11.4-15.5); LYMPHOCYTES ABSOLUTE AUTO 1.5 x10-3/uL (1.0-4.4); LYMPHOCYTES PERCENT AUTO 20.9 % (18.4-52.1); MEAN CORPUSCULAR HEMOGLOBIN 29.6 pg (23.9-33.9); MEAN CORPUSCULAR HGB CONC 32.4 g/dL (31.9-34.8); MEAN CORPUSCULAR VOLUME 91.2 fL (76.7-100.5); MEAN PLATELET VOLUME 7.2 fL (7.1-12.4); MONOCYTES ABSOLUTE AUTO 0.5 x10-3/uL (0.3-1.0); MONOCYTES PERCENT AUTO 7.1 % (4.4-15.7); NEUTROPHILS ABSOLUTE AUTO 4.6 x10-3/uL (1.5-6.3); NEUTROPHILS PERCENT AUTO 65.6 % (30.8-76.2); PLATELET COUNT,PLT 290 x10(3)uL (151-488); RED BLOOD CELL COUNT 3.57 x10(6)uL (3.60-5.20); RED CELL DISTRIBUTION WIDTH 16.5 % (12.3-16.5); WHITE BLOOD CELL COUNT,WBC 7.1 x10-3/uL (3.0-10.3)
[2024-01-14 06:45] LABS: BLOOD UREA NITROGEN,BUN 14 mg/dL (7-18); BUN/CREATININE RATIO 17.5 (9-20); CALCIUM 9.3 mg/dL (8.6-10.2); CARBON DIOXIDE,CO2 31 mmol/L (21-32); CHLORIDE,CL 105 mmol/L (100-110); CREATININE 0.8 mg/dL (0.55-1.02); EST CRCL DRUG DOSING (CG) 51.66 mL/min; ESTIMATED GFR 76 mL/min (>60); GLUCOSE RANDOM 110 mg/dL (80-116); SODIUM,NA 142 mmol/L (135-145)
[2024-01-14] MEDS: predniSONE 5 MG Tab PO SCH (08:17)
[2024-01-14] MEDS: Polyethylene Glycol 3350 Powder 17 GM Packet PO SCH (08:17)
[2024-01-14] MEDS: Folic Acid 1 MG Tab PO SCH (08:18)
[2024-01-14] MEDS: Escitalopram 10 MG Tab PO SCH (08:18)
[2024-01-14] MEDS: lamoTRIgine 100 MG Tab PO SCH (08:18)
[2024-01-14] MEDS: Carboxymethylcellulose Sodium 0.5% Ophth Soln 15 ML Bottle EYEBOTH PRN (08:18)
[2024-01-14] MEDS: Fluticasone NASAL Spray 16 GM Bottle NASBOTH SCH (08:19)
[2024-01-14] MEDS: Apixaban 5 MG Tab PO SCH (14:04)
[2024-01-14 14:08] LABS: ALBUMIN 2.8 g/dL (3.2-4.6); BILIRUBIN DIRECT 0.11 mg/dL (0.10-0.20); BILIRUBIN TOTAL 0.4 mg/dL (0.1-1.3); PROTEIN TOTAL,TP 6.2 g/dL (6.0-8.0)
[2024-01-14] MEDS: cefTRIAXone 1 GM in Sodium Chloride 0.9% 50 ML IV SCH (19:45)
[2024-01-15 06:24] LABS: BASOPHILS ABSOLUTE AUTO 0.1 x10-3/uL (0.0-0.1); BASOPHILS PERCENT AUTO 1.2 % (0.2-1.5); EOSINOPHILS ABSOLUTE AUTO 0.4 x10-3/uL (0.0-0.8); EOSINOPHILS PERCENT AUTO 5.8 % (0.6-8.1); HEMATOCRIT 31.4 % (34.2-48.2); HEMOGLOBIN 10.1 g/dL (11.4-15.5); LYMPHOCYTES ABSOLUTE AUTO 1.7 x10-3/uL (1.0-4.4); LYMPHOCYTES PERCENT AUTO 23.7 % (18.4-52.1); MEAN CORPUSCULAR HEMOGLOBIN 29.4 pg (23.9-33.9); MEAN CORPUSCULAR HGB CONC 32.3 g/dL (31.9-34.8); MEAN CORPUSCULAR VOLUME 91.2 fL (76.7-100.5); MEAN PLATELET VOLUME 7.1 fL (7.1-12.4); MONOCYTES ABSOLUTE AUTO 0.7 x10-3/uL (0.3-1.0); NEUTROPHILS ABSOLUTE AUTO 4.4 x10-3/uL (1.5-6.3); NEUTROPHILS PERCENT AUTO 60.3 % (30.8-76.2); PLATELET COUNT,PLT 266 x10(3)uL (151-488); RED CELL DISTRIBUTION WIDTH 16.6 % (12.3-16.5); WHITE BLOOD CELL COUNT,WBC 7.3 x10-3/uL (3.0-10.3)
[2024-01-15 06:29] LABS: BLOOD UREA NITROGEN,BUN 14 mg/dL (7-18); BUN/CREATININE RATIO 17.5 (9-20); CARBON DIOXIDE,CO2 31 mmol/L (21-32); CHLORIDE,CL 106 mmol/L (100-110); CREATININE 0.8 mg/dL (0.55-1.02); EST CRCL DRUG DOSING (CG) 51.66 mL/min; ESTIMATED GFR 76 mL/min (>60); GLUCOSE RANDOM 103 mg/dL (80-116); POTASSIUM,K 4.1 mmol/L (3.5-5.3); SODIUM,NA 143 mmol/L (135-145)
[2024-01-15 06:36] LABS: RED BLOOD CELL COUNT 3.44 x10(6)uL (3.60-5.20)
[2024-01-15] MEDS: rOPINIRole 1 MG Tab PO PRN (13:40)
[2024-01-15] MEDS: Acetaminophen 325 MG Tab PO PRN (20:36)
[2024-01-16 06:47] LABS: BASOPHILS ABSOLUTE AUTO 0.1 x10-3/uL (0.0-0.1); BASOPHILS PERCENT AUTO 1.1 % (0.2-1.5); EOSINOPHILS ABSOLUTE AUTO 0.3 x10-3/uL (0.0-0.8); HEMATOCRIT 34.3 % (34.2-48.2); HEMOGLOBIN 11.1 g/dL (11.4-15.5); LYMPHOCYTES ABSOLUTE AUTO 1.7 x10-3/uL (1.0-4.4); LYMPHOCYTES PERCENT AUTO 28.9 % (18.4-52.1); MEAN CORPUSCULAR HEMOGLOBIN 29.5 pg (23.9-33.9); MEAN CORPUSCULAR HGB CONC 32.5 g/dL (31.9-34.8); MEAN CORPUSCULAR VOLUME 90.9 fL (76.7-100.5); MEAN PLATELET VOLUME 7.4 fL (7.1-12.4); MONOCYTES ABSOLUTE AUTO 0.7 x10-3/uL (0.3-1.0); MONOCYTES PERCENT AUTO 12.1 % (4.4-15.7); NEUTROPHILS PERCENT AUTO 51.9 % (30.8-76.2); PLATELET COUNT,PLT 282 x10(3)uL (151-488); RED CELL DISTRIBUTION WIDTH 17.2 % (12.3-16.5); WHITE BLOOD CELL COUNT,WBC 5.8 x10-3/uL (3.0-10.3)
[2024-01-16 06:50] LABS: BLOOD UREA NITROGEN,BUN 16 mg/dL (7-18); BUN/CREATININE RATIO 17.8 (9-20); CALCIUM 9.5 mg/dL (8.6-10.2); CARBON DIOXIDE,CO2 31 mmol/L (21-32); CHLORIDE,CL 105 mmol/L (100-110); CREATININE 0.9 mg/dL (0.55-1.02); EST CRCL DRUG DOSING (CG) 45.92 mL/min; ESTIMATED GFR 66 mL/min (>60); GLUCOSE RANDOM 98 mg/dL (80-116); POTASSIUM,K 3.9 mmol/L (3.5-5.3); SODIUM,NA 142 mmol/L (135-145)
[2024-01-16 07:05] LABS: RED BLOOD CELL COUNT 3.77 x10(6)uL (3.60-5.20)
[2024-01-16 13:54] VITALS: BP 119/61; PULSE 87
[2024-01-17] MEDS ORDERED: Methotrexate 2.5 MG Tab PO SCH (08:00)
== END 2024-01-16 14:31 | disposition home or self-care (01) | DRG 175 ==
LOC: FB.ED 11:45 → FB.MS 16:01
PROVIDERS: ADMIT Internal Medicine; ATTEND Internal Medicine
DX: I26.99 Other pulmonary embolism without acute cor pulmonale (principal); J96.91 Respiratory failure, unspecified with hypoxia; N39.0 Urinary tract infection, site not specified; I10 Essential (primary) hypertension; E78.00 Pure hypercholesterolemia, unspecified; I48.91 Unspecified atrial fibrillation; K21.9 Gastro-esophageal reflux disease without esophagitis; J44.9 Chronic obstructive pulmonary disease, unspecified; Z86.73 Personal history of transient ischemic attack (TIA), and cerebral infarction without residual deficits; E66.9 Obesity, unspecified; F41.0 Panic disorder [episodic paroxysmal anxiety]; M19.90 Unspecified osteoarthritis, unspecified site; G89.29 Other chronic pain; M54.9 Dorsalgia, unspecified; D64.9 Anemia, unspecified; R82.81 Pyuria; Z88.2 Allergy status to sulfonamides; Z98.49 Cataract extraction status, unspecified eye; Z90.49 Acquired absence of other specified parts of digestive tract; Z90.10 Acquired absence of unspecified breast and nipple; Z68.35 Body mass index [BMI] 35.0-35.9, adult; Z79.899 Other long term (current) drug therapy; Z86.010 Personal history of colon polyps; Z87.891 Personal history of nicotine dependence; Z98.890 Other specified postprocedural states
CPT/HCPCS: 0241U; 36415; 71045; 71275; 80048; 80076; 83880; 84484; 85025; 85379; 85610; 85730; 87086; 93005; 93010; 97165-GO; 99222; 99232; 99238; 99285; A9270-GY; J0696; J3490; J7512; Q9967

== ENCOUNTER 2024-12-15 16:20 | Emergency (ER) | payer MEDICARE, MEDICAID ==
[2024-12-15] MEDS: Ketorolac 30 MG/ML SDV IM ONE (16:47)
[2024-12-15] MEDS: hydrOXYzine HCl 50 MG/ML SDV IM ONE (16:48)
[2024-12-15 16:54] LABS: HEMATOCRIT 34.7 % (34.2-48.2); HEMOGLOBIN 11.5 g/dL (11.4-15.5); MEAN CORPUSCULAR HEMOGLOBIN 29.4 pg (23.9-33.9); MEAN CORPUSCULAR HGB CONC 33.2 g/dL (31.9-34.8); MEAN CORPUSCULAR VOLUME 88.5 fL (76.7-100.5); MEAN PLATELET VOLUME 7.4 fL (7.1-12.4); PLATELET COUNT,PLT 303 x10(3)uL (151-488); RED BLOOD CELL COUNT 3.92 x10(6)uL (3.60-5.20); RED CELL DISTRIBUTION WIDTH 18.1 % (12.3-16.5); WHITE BLOOD CELL COUNT,WBC 8.3 x10-3/uL (3.0-10.3)
[2024-12-15 16:59] LABS: BLOOD UREA NITROGEN,BUN 10 mg/dL (7-18); BUN/CREATININE RATIO 12.5 (9-20); CALCIUM 9.3 mg/dL (8.6-10.2); CARBON DIOXIDE,CO2 31 mmol/L (21-32); CHLORIDE,CL 102 mmol/L (100-110); CREATININE 0.8 mg/dL (0.55-1.02); ESTIMATED GFR 76 mL/min (>60); GLUCOSE RANDOM 144 mg/dL (80-116); POTASSIUM,K 4.4 mmol/L (3.5-5.3); SODIUM,NA 140 mmol/L (135-145)
[2024-12-15 16:59] LABS: APPEARANCE,URINE SLIGHTLY CLOUDY (CLEAR); BILIRUBIN,URINE NEGATIVE (NEGATIVE); COLOR,URINE YELLOW (YELLOW); GLUCOSE,URINE NORMAL (NORMAL); KETONES,URINE 15 mg/dL (NEGATIVE); LEUKOCYTE ESTERASE,URINE SMALL (NEGATIVE); NITRITE,URINE NEGATIVE (NEGATIVE); OCCULT BLOOD,URINE NEGATIVE (NEGATIVE); PROTEIN,URINE NEGATIVE (NEGATIVE); UROBILINOGEN,URINE NORMAL (NEGATIVE)
[2024-12-15 17:06] LABS: BACTERIA,URINE MODERATE (NS); RBC,URINE 0-5 (0-5); SQUAMOUS EPITHELIAL CELLS,UR MODERATE (NS,R,O)
[2024-12-15 17:10] LABS: A/G RATIO 0.9; ALANINE AMINOTRANSFERASE,ALT 17 U/L (12-36); ALBUMIN 3.4 g/dL (3.2-4.6); ALKALINE PHOSPHATASE 99 IU/L (56-112); ASPARTATE AMNIOTRANSFERASE,AST 11 IU/L (5-25); BILIRUBIN TOTAL 0.4 mg/dL (0.1-1.3); MAGNESIUM 1.7 mg/dL (1.8-2.5); PROTEIN TOTAL,TP 7.1 g/dL (6.0-8.0)
[2024-12-15 17:13] LABS: ANISOCYTOSIS MODERATE; LYMPHOCYTES PERCENT MAN 6 % (13-37); MONOCYTES PERCENT MAN 3 % (4-12); SEG NEUTROPHILS PERCENT MAN 91 % (46-82)
[2024-12-15] MEDS: Nitrofurantoin Monohydrate/Macrocrystalline 100 MG Cap PO ONE (17:50)
[2024-12-15] MEDS: Metoprolol Tartrate 25 MG Tab PO ONE (18:09)
[2024-12-15 19:29] VITALS: BP 169/82; PULSE 64
== END 2024-12-15 19:10 ==
LOC: FB.ED 16:20
DX: G43.009 Migraine without aura, not intractable, without status migrainosus (principal); I10 Essential (primary) hypertension; N39.0 Urinary tract infection, site not specified; K21.9 Gastro-esophageal reflux disease without esophagitis; E66.9 Obesity, unspecified; Z88.2 Allergy status to sulfonamides; Z79.899 Other long term (current) drug therapy; Z90.49 Acquired absence of other specified parts of digestive tract
CPT/HCPCS: 36415; 80053; 81001; 83735; 85025; 86140; 87086; 96372; 99284; A9270-GY; J1885; J3410

== ENCOUNTER 2024-12-17 07:33 | Emergency (ER) | payer MEDICARE, MEDICAID ==
[2024-12-17 07:57] LABS: BASOPHILS PERCENT AUTO 0.3 % (0.2-1.5); EOSINOPHILS ABSOLUTE AUTO 0.5 x10-3/uL (0.0-0.8); HEMOGLOBIN 12.3 g/dL (11.4-15.5); LYMPHOCYTES ABSOLUTE AUTO 0.4 x10-3/uL (1.0-4.4); LYMPHOCYTES PERCENT AUTO 3.7 % (18.4-52.1); MEAN CORPUSCULAR HEMOGLOBIN 29.3 pg (23.9-33.9); MEAN CORPUSCULAR HGB CONC 32.4 g/dL (31.9-34.8); MEAN CORPUSCULAR VOLUME 90.4 fL (76.7-100.5); MEAN PLATELET VOLUME 7.5 fL (7.1-12.4); MONOCYTES ABSOLUTE AUTO 0.9 x10-3/uL (0.3-1.0); MONOCYTES PERCENT AUTO 9.1 % (4.4-15.7); NEUTROPHILS ABSOLUTE AUTO 8.4 x10-3/uL (1.5-6.3); NEUTROPHILS PERCENT AUTO 81.9 % (30.8-76.2); PLATELET COUNT,PLT 284 x10(3)uL (151-488); RED CELL DISTRIBUTION WIDTH 19.2 % (12.3-16.5); WHITE BLOOD CELL COUNT,WBC 10.3 x10-3/uL (3.0-10.3)
[2024-12-17 08:04] LABS: BLOOD UREA NITROGEN,BUN 17 mg/dL (7-18); CALCIUM 9.9 mg/dL (8.6-10.2); CARBON DIOXIDE,CO2 32 mmol/L (21-32); CHLORIDE,CL 100 mmol/L (100-110); ESTIMATED GFR 58 mL/min (>60); GLUCOSE RANDOM 124 mg/dL (80-116); POTASSIUM,K 3.9 mmol/L (3.5-5.3); SODIUM,NA 140 mmol/L (135-145)
[2024-12-17 08:10] LABS: A/G RATIO 0.9; ALANINE AMINOTRANSFERASE,ALT 10 U/L (12-36); ALBUMIN 3.6 g/dL (3.2-4.6); ALKALINE PHOSPHATASE 104 IU/L (56-112); ASPARTATE AMNIOTRANSFERASE,AST 11 IU/L (5-25); BILIRUBIN TOTAL 0.5 mg/dL (0.1-1.3); PROTEIN TOTAL,TP 7.5 g/dL (6.0-8.0)
[2024-12-17 10:44] VITALS: BP 124/68; PULSE 85
== END 2024-12-17 09:25 ==
LOC: FB.ED 07:33
DX: G43.909 Migraine, unspecified, not intractable, without status migrainosus (principal); J32.9 Chronic sinusitis, unspecified; N39.0 Urinary tract infection, site not specified; I10 Essential (primary) hypertension; I48.91 Unspecified atrial fibrillation; E66.9 Obesity, unspecified; J44.9 Chronic obstructive pulmonary disease, unspecified; K21.9 Gastro-esophageal reflux disease without esophagitis; M19.90 Unspecified osteoarthritis, unspecified site; Z88.2 Allergy status to sulfonamides; Z79.899 Other long term (current) drug therapy; Z79.51 Long term (current) use of inhaled steroids; Z90.49 Acquired absence of other specified parts of digestive tract
CPT/HCPCS: 70450; 80053; 84484; 85025; 93005; 99284; 99285